=== PATIENT | male | born 1965 | race Two or more races ===

== ENCOUNTER 2021-03-11 22:53 | Observation (INO) | payer SELFPAY ==
--- NOTE | 2021-03-11 23:23 | EDM.PDOC ---
ED HPI GENERAL MEDICAL PROBLEM - General Chief Complaint: Gastrointestinal Problem Stated Complaint: ALCOHOL WITHDRAWL, VOMITTING BLOOD Time Seen by Provider: 03/11/21 23:10 Source of Information: Reports: Patient History Limitations: Reports: No Limitations - History of Present Illness INITIAL COMMENTS - FREE TEXT/NARRATIVE: This is a 55-year-old male presents today for vomiting of blood. Patient that he had an argument with few days ago and for the past 7 days been drinking heavily. His last drink was yesterday. Denies any shakiness or tremors. States that he has some vomiting yesterday 2 minutes of drinking and he notices some bright red blood. Denies abdominal pain chest pain weakness fever chills or fatigue denies taking any blood thinners or other NSAIDs. - Related Data Allergies Allergy/AdvReac Type Severity Reaction Status Date / Time No Known Allergies Allergy Verified 03/11/21 23:16 Home Meds: Home Meds . [No Known Home Meds] 03/11/21 [History] ED ROS GENERAL - Review of Systems Review Of Systems: See Below Constitutional: Reports: No Symptoms HEENT: Reports: No Symptoms Respiratory: Reports: No Symptoms Cardiovascular: Reports: No Symptoms Endocrine: Reports: No Symptoms GI/Abdominal: Reports: Hematemesis : Reports: No Symptoms Musculoskeletal: Reports: No Symptoms Skin: Reports: No Symptoms Neurological: Reports: No Symptoms Psychiatric: Reports: No Symptoms Hematologic/Lymphatic: Reports: No Symptoms Immunologic: Reports: No Symptoms ED EXAM, GI/ABD - Physical Exam Exam: See Below Exam Limited By: No Limitations General Appearance: Alert, WD/WN, No Apparent Distress Eyes: Bilateral: EOMI Head: Atraumatic, Normocephalic Neck: Normal Inspection, Supple, Non-Tender Respiratory/Chest: No Respiratory Distress, Lungs Clear, Normal Breath Sounds, No Accessory Muscle Use Cardiovascular: Normal Peripheral Pulses, Regular Rate, Rhythm GI/Abdominal Exam: Normal Bowel Sounds, Soft, Non-Tender Rectal (Males) Exam: Normal Exam, Normal Rectal Tone (Has brown stool), Heme + Stool Back Exam: Normal Inspection, Full Range of Motion Extremities: Normal Inspection, Normal Range of Motion Neurological: Alert, Oriented, Normal Cognition, Normal Gait Course - Vital Signs Last Recorded V/S: Last Vital Signs Temp 96.5 F L 03/11/21 23:10 Pulse 124 H 09/22/21 23:10 Resp 18 03/11/21 23:10 BP 119/86 03/11/21 23:10 Pulse Ox 96 03/11/21 23:10 - Orders/Labs/Meds Orders: Active Orders 24 hr Category Date Time Status Patient Status [ADT] Routine ADT 03/12/21 02:40 Ordered CORONAVIRUS COVID-19 ELSA [MOLEC] Stat Lab 03/12/21 02:31 Ordered REFLEX LACTIC ACID YES OR NO [CHEM] Routine Lab 03/12/21 00:03 Received Sodium Chloride 0.9% [Normal Saline] 1,000 ml Med 03/12/21 02:31 Ordered IV .Bolus Medication Orders Sodium Chloride (Normal Saline) 1,000 mls @ 1,000 mls/hr IV .Bolus ONE Stop: 03/12/21 03:30 Labs: Laboratory Tests 03/11/21 03/11/21 03/11/21 Range/Units 23:05 23:05 23:05 WBC 15.60 H (4.0-11.0) K/uL RBC 4.40 L (4.50-5.90) M/uL Hgb 14.0 (13.0-17.0) g/dL Hct 39.8 (38.0-50.0) % MCV 90.5 (80.0-98.0) fL MCH 31.8 (27.0-32.0) pg MCHC 35.2 (31.0-37.0) g/dL RDW Std Deviation 39.9 (28.0-62.0) fl RDW Coeff of James 12 (11.0-15.0) % Plt Count 249 (150-400) K/uL MPV 12.00 (7.40-12.00) fL Neut % (Auto) 70.5 (48.0-80.0) % Lymph % (Auto) 19.9 (16.0-40.0) % [place] % (Auto) 8.9 (0.0-15.0) % Eos % (Auto) 0.1 (0.0-7.0) % Baso % (Auto) 0.6 (0.0-1.5) % Neut # (Auto) 11.0 H (1.4-5.7) K/uL Lymph # (Auto) 3.1 H (0.6-2.4) K/uL [place] # (Auto) 1.4 H (0.0-0.8) K/uL Eos # (Auto) 0.0 (0.0-0.7) K/uL Baso # (Auto) 0.1 (0.0-0.1) K/uL Nucleated RBC % 0.0 /100WBC Nucleated RBCs # 0 K/uL INR 1.07 APTT 23.3 (18.6-31.3) SEC Sodium 132 L (136-148) mmol/L Potassium 3.9 (3.5-5.1) mmol/L Chloride 95 L (98-107) mmol/L Carbon Dioxide 24.5 (21.0-32.0) mmol/L BUN 41 H (7.0-18.0) mg/dL Creatinine 1.5 H (0.8-1.3) mg/dL Est Cr Clr Drug Dosing TNP Estimated GFR (MDRD) 48.6 ml/min Glucose 190 H (74-106) mg/dL Lactic Acid (0.4-2.0) mmol/L Calcium 8.3 L (8.5-10.1) mg/dL Phosphorus 3.5 (2.6-4.7) mg/dL Magnesium 2.0 (1.8-2.4) mg/dL Total Bilirubin 1.5 H (0.2-1.0) mg/dL AST 46 H (15-37) IU/L ALT 49 (14-63) IU/L Alkaline Phosphatase 74 (46-116) U/L Total Protein 7.1 (6.4-8.2) g/dL Albumin 3.3 L (3.4-5.0) g/dL Globulin 3.8 (2.6-4.0) g/dL Albumin/Globulin Ratio 0.9 (0.9-1.6) Lipase 98 (73-393) U/L Urine Opiates Screen (NEGATIVE) Ur Oxycodone Screen (NEGATIVE) Urine Methadone Screen (NEGATIVE) Ur Barbiturates Screen (NEGATIVE) Ur Phencyclidine Scrn (NEGATIVE) Ur Amphetamine Screen (NEGATIVE) U Methamphetamines Scrn (NEGATIVE) U Benzodiazepines Scrn (NEGATIVE) U Cocaine Metab Screen (NEGATIVE) U Marijuana (THC) Screen (NEGATIVE) Ethyl Alcohol < 3.0 mg/dL Blood Type Antibody Screen 03/11/21 03/11/21 03/12/21 Range/Units 23:30 23:30 00:45 WBC (4.0-11.0) K/uL RBC (4.50-5.90) M/uL Hgb (13.0-17.0) g/dL Hct (38.0-50.0) % MCV (80.0-98.0) fL MCH (27.0-32.0) pg MCHC (31.0-37.0) g/dL RDW Std Deviation (28.0-62.0) fl RDW Coeff of James (11.0-15.0) % Plt Count (150-400) K/uL MPV (7.40-12.00) fL Neut % (Auto) (48.0-80.0) % Lymph % (Auto) (16.0-40.0) % [place] % (Auto) (0.0-15.0) % Eos % (Auto) (0.0-7.0) % Baso % (Auto) (0.0-1.5) % Neut # (Auto) (1.4-5.7) K/uL Lymph # (Auto) (0.6-2.4) K/uL [place] # (Auto) (0.0-0.8) K/uL Eos # (Auto) (0.0-0.7) K/uL Baso # (Auto) (0.0-0.1) K/uL Nucleated RBC % /100WBC Nucleated RBCs # K/uL INR APTT (18.6-31.3) SEC Sodium (136-148) mmol/L Potassium (3.5-5.1) mmol/L Chloride (98-107) mmol/L Carbon Dioxide (21.0-32.0) mmol/L BUN (7.0-18.0) mg/dL Creatinine (0.8-1.3) mg/dL Est Cr Clr Drug Dosing Estimated GFR (MDRD) ml/min Glucose (74-106) mg/dL Lactic Acid 3.3 H* (0.4-2.0) mmol/L Calcium (8.5-10.1) mg/dL Phosphorus (2.6-4.7) mg/dL Magnesium (1.8-2.4) mg/dL Total Bilirubin (0.2-1.0) mg/dL AST (15-37) IU/L ALT (14-63) IU/L Alkaline Phosphatase (46-116) U/L Total Protein (6.4-8.2) g/dL Albumin (3.4-5.0) g/dL Globulin (2.6-4.0) g/dL Albumin/Globulin Ratio (0.9-1.6) Lipase (73-393) U/L Urine Opiates Screen NEGATIVE (NEGATIVE) Ur Oxycodone Screen NEGATIVE (NEGATIVE) Urine Methadone Screen NEGATIVE (NEGATIVE) Ur Barbiturates Screen NEGATIVE (NEGATIVE) Ur Phencyclidine Scrn NEGATIVE (NEGATIVE) Ur Amphetamine Screen NEGATIVE (NEGATIVE) U Methamphetamines Scrn NEGATIVE (NEGATIVE) U Benzodiazepines Scrn NEGATIVE (NEGATIVE) U Cocaine Metab Screen NEGATIVE (NEGATIVE) U Marijuana (THC) Screen NEGATIVE (NEGATIVE) Ethyl Alcohol mg/dL Blood Type O POSITIVE Antibody Screen NEGATIVE 03/12/21 Range/Units 01:55 WBC 11.38 H (4.0-11.0) K/uL RBC 4.09 L (4.50-5.90) M/uL Hgb 13.0 (13.0-17.0) g/dL Hct 36.9 L (38.0-50.0) % MCV 90.2 (80.0-98.0) fL MCH 31.8 (27.0-32.0) pg MCHC 35.2 (31.0-37.0) g/dL RDW Std Deviation 36.7 (28.0-62.0) fl RDW Coeff of James 11 (11.0-15.0) % Plt Count 166 (150-400) K/uL MPV 11.40 (7.40-12.00) fL Neut % (Auto) (48.0-80.0) % Lymph % (Auto) (16.0-40.0) % [place] % (Auto) (0.0-15.0) % Eos % (Auto) (0.0-7.0) % Baso % (Auto) (0.0-1.5) % Neut # (Auto) (1.4-5.7) K/uL Lymph # (Auto) (0.6-2.4) K/uL [place] # (Auto) (0.0-0.8) K/uL Eos # (Auto) (0.0-0.7) K/uL Baso # (Auto) (0.0-0.1) K/uL Nucleated RBC % /100WBC Nucleated RBCs # K/uL INR APTT (18.6-31.3) SEC Sodium (136-148) mmol/L Potassium (3.5-5.1) mmol/L Chloride (98-107) mmol/L Carbon Dioxide (21.0-32.0) mmol/L BUN (7.0-18.0) mg/dL Creatinine (0.8-1.3) mg/dL Est Cr Clr Drug Dosing Estimated GFR (MDRD) ml/min Glucose (74-106) mg/dL Lactic Acid (0.4-2.0) mmol/L Calcium (8.5-10.1) mg/dL Phosphorus (2.6-4.7) mg/dL Magnesium (1.8-2.4) mg/dL Total Bilirubin (0.2-1.0) mg/dL AST (15-37) IU/L ALT (14-63) IU/L Alkaline Phosphatase (46-116) U/L Total Protein (6.4-8.2) g/dL Albumin (3.4-5.0) g/dL Globulin (2.6-4.0) g/dL Albumin/Globulin Ratio (0.9-1.6) Lipase (73-393) U/L Urine Opiates Screen (NEGATIVE) Ur Oxycodone Screen (NEGATIVE) Urine Methadone Screen (NEGATIVE) Ur Barbiturates Screen (NEGATIVE) Ur Phencyclidine Scrn (NEGATIVE) Ur Amphetamine Screen (NEGATIVE) U Methamphetamines Scrn (NEGATIVE) U Benzodiazepines Scrn (NEGATIVE) U Cocaine Metab Screen (NEGATIVE) U Marijuana (THC) Screen (NEGATIVE) Ethyl Alcohol mg/dL Blood Type Antibody Screen Meds: Medications Generic Name Dose Route Start Last Admin Trade Name Freq PRN Reason Stop Dose Admin Sodium Chloride 1,000 mls @ 1,000 mls/hr 03/12/21 02:31 Normal Saline IV 03/12/21 03:30 .Bolus ONE Discontinued Medications Generic Name Dose Route Start Last Admin Trade Name Freq PRN Reason Stop Dose Admin Chlordiazepoxide HCl 50 mg 03/12/21 00:22 09/23/21 00:32 Chlordiazepoxide 25 Mg Cap PO 03/12/21 00:23 50 mg ONETIME ONE Administration Al Hydroxide/Mg Hydroxide 15 0 ml 03/11/21 23:31 03/11/21 23:48 ml/ Lidocaine HCl 5 ml PO 03/11/21 23:32 20 each ONETIME ONE Administration Famotidine 20 mg 03/11/21 23:31 03/11/21 23:48 Famotidine 20 Mg Tab PO 03/11/21 23:32 20 mg ONETIME ONE Administration Ondansetron HCl 4 mg 03/11/21 23:31 03/11/21 23:48 Ondansetron 4 Mg/2 Ml Sdv IVPUSH 03/11/21 23:32 4 mg ONETIME ONE Administration - Re-Assessments/Exams Free Text/Narrative Re-Assessment/Exam: 03/12/21 02:41 Exam looks well does not have any tremors at the Librium. His hemoglobin went from 14-13. He still slightly tacky ~110. We will admit patient observation to have his hemoglobin trended also for possible early alcohol withdrawal. Departure - Departure Time of Disposition: 02:41 Disposition: Home, Self-Care 01 Condition: Good Clinical Impression: Alcohol withdrawal, Hematemesis - Discharge Information Referrals: PCP,None [Primary Care Provider] - Forms: ED Department Discharge Critical Care Note - Critical Care Note Total Time (mins): 45 Comments: Critical Care Procedure Note Authorized and Performed by: Dr. Bai Total critical care time: Approximately Due to a high probability of clinically significant, life threatening deterioration, the patient required my highest level of preparedness to intervene emergently and I personally spent this critical care time directly and personally managing the patient. This critical care time included obtaining a history; examining the patient; pulse oximetry; ordering and review of studies; arranging urgent treatment with development of a management plan; evaluation of patient's response to treatment; frequent reassessment; and, discussions with other providers. This critical care time was performed to assess and manage the high probability of imminent, life-threatening deterioration that could result in multi-organ failure. It was exclusive of separately billable procedures and treating other patients and teaching time. Sepsis Event Note (ED) - Focused Exam Vital Signs: Vital Signs Temp Pulse Resp BP Pulse Ox 03/11/21 23:10 96.5 F L 124 H 18 119/86 96 - My Orders Last 24 Hours: My Active Orders 03/12/21 00:03 REFLEX LACTIC ACID YES OR NO [CHEM] Routine 03/12/21 02:31 CORONAVIRUS COVID-19 ELSA [MOLEC] Stat Sodium Chloride 0.9% [Normal Saline] 1,000 ml IV .Bolus 03/12/21 02:40 Patient Status [ADT] Routine - Assessment/Plan Last 24 Hours: My Active Orders 03/12/21 00:03 REFLEX LACTIC ACID YES OR NO [CHEM] Routine 03/12/21 02:31 CORONAVIRUS COVID-19 ELSA [MOLEC] Stat Sodium Chloride 0.9% [Normal Saline] 1,000 ml IV .Bolus 03/12/21 02:40 Patient Status [ADT] Routine Plan: Patient is a 55-year-old male presents today for vomiting of blood. Patient has been on a drinking smith for the past 7 days he is not normally drink. Patient has no signs of alcohol withdrawal. Patient has some guaiac positive but brown stool we will obtain CBC CHEM and trend patient's hemoglobin.
[2021-03-11] MEDS ORDERED: Famotidine 20 MG Tab PO ONE (23:31)
[2021-03-11] MEDS ORDERED: Ondansetron 4 MG/2 ML SDV IVPUSH ONE (23:31)
[2021-03-11] MEDS ORDERED: Alum Hydrox/Mag Hydrox/Simeth 15 ML, Lidocaine 2% 5 ML PO ONE ×2 (23:31)
[2021-03-11 23:41] LABS: BLOOD UREA NITROGEN,BUN 41 mg/dL (7.0-18.0); CARBON DIOXIDE,CO2 24.5 mmol/L (21.0-32.0); CHLORIDE,CL 95 mmol/L (98-107); GLUCOSE RANDOM 190 mg/dL (74-106); LIPASE 98 U/L (73-393); POTASSIUM,K 3.9 mmol/L (3.5-5.1); SODIUM,NA 132 mmol/L (136-148)
--- NOTE | 2021-03-12 00:21 | CR ---
INDICATION: Hematemesis TECHNIQUE: Chest radiograph 1 view COMPARISON: None FINDINGS: The sensitivity and specificity of the exam are severely limited by the patient`s bod Mediastinum: The mediastinum is normal in appearance. The heart silhouette is normal in size and morphology. Lung: Both lungs are unremarkable in appearance with small lung volumes. No sign of pleural effusion seen. No pneumothorax is identified. Bone and Soft tissue: Unremarkable for age. IMPRESSION: 1. No acute cardiopulmonary disease is seen. Dictated by: Alex Reddy MD @ 03/12/2021 00:20:37 (Electronically Signed)
[2021-03-12] MEDS ORDERED: chlordiazePOXIDE 25 MG Cap PO ONE (00:22)
[2021-03-12] MEDS ORDERED: Sodium Chloride 0.9% 1,000 ML IV ONE (02:31)
[2021-03-12] MEDS ORDERED: LORazepam 2 MG/ML SDV IVPUSH PRN (05:17)
[2021-03-12] MEDS: Lactated Ringers 1,000 ML IV SCH ×2 (05:20→13:08)
[2021-03-12] MEDS ORDERED: Ondansetron 4 MG/2 ML SDV IVPUSH PRN (05:20)
[2021-03-12] MEDS ORDERED: Albuterol/Ipratropium 3.0-0.5 MG/3 ML Neb Soln NEB PRN (05:21)
[2021-03-12] MEDS ORDERED: Morphine 2 MG/ML SYRINGE IVPUSH PRN (05:23)
[2021-03-12 06:46] LABS: CARBON DIOXIDE,CO2 28.6 mmol/L (21.0-32.0); POTASSIUM,K 3.8 mmol/L (3.5-5.1)
--- NOTE | 2021-03-12 07:21 | PCM.HP.2 ---
H&P History of Present Illness - General Date of Service: 03/12/21 Admit Problem/Dx: Admission Diagnosis/Problem Admission Diagnosis/Problem Alcohol withdrawal syndrome - History of Present Illness Initial Comments - Free Text/Narative: 55-year-old male presented to the ED overnight due to several episodes of vom iting blood. Patient admitted to [facility] for gastritis/GI bleed and alcohol withdrawal. Patient states he has been drinking heavily for the past 5 days beginning Tuesday due to family difficulties and stress. Patient states last drink prior to this event was roughly 4 months ago. On discussion with patient's daughter she states that patient has had a long history of alcohol abuse. At admission patient denies fever, chills, nausea, vomiting, chest pain, shortness of breath, headaches, dizziness. Patient denies abdominal pain, vomiting blood. Patient states one episode of reddish-brown diarrhea. Patient states his vomiting and diarrhea had significantly improved with PPI and Zofran. Patient denies any significant past medical history, denies being prescribed any medications. Patient denies smoking, illicit drug use. Patient denies the use of NSAID medication. ER course- Patient given Librium 50 mg p.o. 1 time, 1 L normal saline bolus, GI cocktail. Chest x-ray normal. Lab work on admission white blood cell count 8.9, hemoglobin 12.3, hematocrit 35.3, platelet 165. Sodium 133, potassium 3.8, BUN 40, creatinine 1.3, AST 34, ALT 44, ALK phosphatase 64, lipase 98, vitamin D 8 .8, TSH 1.09, triglycerides 563, cholesterol 110. Urine toxicology negative, alcohol less than 3.0. Patient admitted, monitor for signs of alcohol withdrawal and GI bleeding. - Related Data Allergies/Adverse Reactions: Allergies Allergy/AdvReac Type Severity Reaction Status Date / Time No Known Allergies Allergy Verified 03/11/21 23:16 Home Medications: Home Meds Cholecalciferol (Vitamin D3) [Vitamin D3] 5,000 unit PO DAILY #30 capsule 03/12/21 [Rx] Cyanocobalamin (Vitamin B-12) [Vitamin B12] 2,500 mcg PO DAILY #30 tablet 03/12/21 [Rx] Folic Acid 0.8 mg PO DAILY 30 Days #1 capsule 03/12/21 [Rx] Omeprazole 40 mg PO DAILY #7 03/12/21 [Rx] atorvaSTATin [Lipitor] 20 mg PO BEDTIME #14 tablet 03/12/21 [Rx] Past Medical History HEENT History: Reports: None Cardiovascular History: Reports: None Respiratory History: Reports: None Gastrointestinal History: Reports: None Genitourinary History: Reports: None Musculoskeletal History: Reports: None Neurological History: Reports: None Psychiatric History: Reports: None Endocrine/Metabolic History: Reports: None 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 Hematologic History: Reports: None Immunologic History: Reports: None Oncologic (Cancer) History: Reports: None Dermatologic History: Reports: None - Infectious Disease History Infectious Disease History: Reports: None - Past Surgical History Head Surgeries/Procedures: Reports: None HEENT Surgical History: Reports: None Social & Family History - Tobacco Use Tobacco Use Status *Q: Never Tobacco User - Caffeine Use Caffeine Use: Reports: Soda - Alcohol Use Date of Last Drink: 03/10/21 Time of Last Drink: 20:00 - Recreational Drug Use Recreational Drug Use: No H&P Review of Systems - Review of Systems: Review Of Systems: See Below General: Denies: Fever, Chills, Weakness, Fatigue Pulmonary: Denies: Shortness of Breath, Wheezing, Cough Cardiovascular: Denies: Chest Pain, Palpitations, Dyspnea on Exertion, Orthopnea, Edema Gastrointestinal: Reports: Bloody Stool, Diarrhea. Denies: Abdominal Pain, Constipation, Decreased Appetite, Difficulty Swallowing (one episode), Distension, Hematemesis Psychiatric: Denies: Confusion Neurological: Denies: Confusion, Dizziness, Headache Exam - Exam Exam: See Below - Vital Signs Vital Signs: Last Vital Signs Temp 97.5 F 03/12/21 03:50 Pulse 102 H 03/12/21 03:50 Resp 18 03/12/21 03:50 BP 129/84 03/12/21 03:50 Pulse Ox 97 03/12/21 03:50 Weight: 234 lb 5.622 oz - Exam General: Alert, Oriented Lungs: Clear to Auscultation, Normal Respiratory Effort Cardiovascular: Regular Rhythm, Tachycardia GI/Abdominal Exam: Soft, Non-Tender, No Distention. No: Distended, Guarding Back Exam: No: CVA Tenderness (L), CVA Tenderness (R) Extremities: No Pedal Edema Neuro Extensive - Mental Status: Alert, Oriented x3, Normal Mood/Affect Psychiatric: Alert - Patient Data Lab Results Last 24 hrs: Laboratory Results - last 24 hr 03/11/21 03/11/21 03/11/21 Range/Units 23:05 23:05 23:05 WBC 15.60 H (4.0-11.0) K/uL RBC 4.40 L (4.50-5.90) M/uL Hgb 14.0 (13.0-17.0) g/dL Hct 39.8 (38.0-50.0) % MCV 90.5 (80.0-98.0) fL MCH 31.8 (27.0-32.0) pg MCHC 35.2 (31.0-37.0) g/dL RDW Std Deviation 39.9 (28.0-62.0) fl RDW Coeff of James 12 (11.0-15.0) % Plt Count 249 (150-400) K/uL MPV 12.00 (7.40-12.00) fL Neut % (Auto) 70.5 (48.0-80.0) % Lymph % (Auto) 19.9 (16.0-40.0) % Bucks % (Auto) 8.9 (0.0-15.0) % Eos % (Auto) 0.1 (0.0-7.0) % Baso % (Auto) 0.6 (0.0-1.5) % Neut # (Auto) 11.0 H (1.4-5.7) K/uL Lymph # (Auto) 3.1 H (0.6-2.4) K/uL Bucks # (Auto) 1.4 H (0.0-0.8) K/uL Eos # (Auto) 0.0 (0.0-0.7) K/uL Baso # (Auto) 0.1 (0.0-0.1) K/uL Nucleated RBC % 0.0 /100WBC Nucleated RBCs # 0 K/uL INR 1.07 APTT 23.3 (18.6-31.3) SEC Sodium 132 L (136-148) mmol/L Potassium 3.9 (3.5-5.1) mmol/L Chloride 95 L (98-107) mmol/L Carbon Dioxide 24.5 (21.0-32.0) mmol/L BUN 41 H (7.0-18.0) mg/dL Creatinine 1.5 H (0.8-1.3) mg/dL Est Cr Clr Drug Dosing TNP Estimated GFR (MDRD) 48.6 ml/min Glucose 190 H (74-106) mg/dL Lactic Acid (0.4-2.0) mmol/L Calcium 8.3 L (8.5-10.1) mg/dL Phosphorus 3.5 (2.6-4.7) mg/dL Magnesium 2.0 (1.8-2.4) mg/dL Total Bilirubin 1.5 H (0.2-1.0) mg/dL AST 46 H (15-37) IU/L ALT 49 (14-63) IU/L Alkaline Phosphatase 74 (46-116) U/L Total Protein 7.1 (6.4-8.2) g/dL Albumin 3.3 L (3.4-5.0) g/dL Globulin 3.8 (2.6-4.0) g/dL Albumin/Globulin Ratio 0.9 (0.9-1.6) Lipase 98 (73-393) U/L Urine Opiates Screen (NEGATIVE) Ur Oxycodone Screen (NEGATIVE) Urine Methadone Screen (NEGATIVE) Ur Barbiturates Screen (NEGATIVE) Ur Phencyclidine Scrn (NEGATIVE) Ur Amphetamine Screen (NEGATIVE) U Methamphetamines Scrn (NEGATIVE) U Benzodiazepines Scrn (NEGATIVE) U Cocaine Metab Screen (NEGATIVE) U Marijuana (THC) Screen (NEGATIVE) Ethyl Alcohol < 3.0 mg/dL SARS-CoV-2 RNA (ELSA) (NEGATIVE) Blood Type Antibody Screen 03/11/21 03/11/21 03/12/21 Range/Units 23:30 23:30 00:45 WBC (4.0-11.0) K/uL RBC (4.50-5.90) M/uL Hgb (13.0-17.0) g/dL Hct (38.0-50.0) % MCV (80.0-98.0) fL MCH (27.0-32.0) pg MCHC (31.0-37.0) g/dL RDW Std Deviation (28.0-62.0) fl RDW Coeff of James (11.0-15.0) % Plt Count (150-400) K/uL MPV (7.40-12.00) fL Neut % (Auto) (48.0-80.0) % Lymph % (Auto) (16.0-40.0) % Bucks % (Auto) (0.0-15.0) % Eos % (Auto) (0.0-7.0) % Baso % (Auto) (0.0-1.5) % Neut # (Auto) (1.4-5.7) K/uL Lymph # (Auto) (0.6-2.4) K/uL Bucks # (Auto) (0.0-0.8) K/uL Eos # (Auto) (0.0-0.7) K/uL Baso # (Auto) (0.0-0.1) K/uL Nucleated RBC % /100WBC Nucleated RBCs # K/uL INR APTT (18.6-31.3) SEC Sodium (136-148) mmol/L Potassium (3.5-5.1) mmol/L Chloride (98-107) mmol/L Carbon Dioxide (21.0-32.0) mmol/L BUN (7.0-18.0) mg/dL Creatinine (0.8-1.3) mg/dL Est Cr Clr Drug Dosing Estimated GFR (MDRD) ml/min Glucose (74-106) mg/dL Lactic Acid 3.3 H* (0.4-2.0) mmol/L Calcium (8.5-10.1) mg/dL Phosphorus (2.6-4.7) mg/dL Magnesium (1.8-2.4) mg/dL Total Bilirubin (0.2-1.0) mg/dL AST (15-37) IU/L ALT (14-63) IU/L Alkaline Phosphatase (46-116) U/L Total Protein (6.4-8.2) g/dL Albumin (3.4-5.0) g/dL Globulin (2.6-4.0) g/dL Albumin/Globulin Ratio (0.9-1.6) Lipase (73-393) U/L Urine Opiates Screen NEGATIVE (NEGATIVE) Ur Oxycodone Screen NEGATIVE (NEGATIVE) Urine Methadone Screen NEGATIVE (NEGATIVE) Ur Barbiturates Screen NEGATIVE (NEGATIVE) Ur Phencyclidine Scrn NEGATIVE (NEGATIVE) Ur Amphetamine Screen NEGATIVE (NEGATIVE) U Methamphetamines Scrn NEGATIVE (NEGATIVE) U Benzodiazepines Scrn NEGATIVE (NEGATIVE) U Cocaine Metab Screen NEGATIVE (NEGATIVE) U Marijuana (THC) Screen NEGATIVE (NEGATIVE) Ethyl Alcohol mg/dL SARS-CoV-2 RNA (ELSA) (NEGATIVE) Blood Type O POSITIVE Antibody Screen NEGATIVE 03/12/21 03/12/21 03/12/21 Range/Units 01:55 02:35 04:10 WBC 11.38 H (4.0-11.0) K/uL RBC 4.09 L (4.50-5.90) M/uL Hgb 13.0 (13.0-17.0) g/dL Hct 36.9 L (38.0-50.0) % MCV 90.2 (80.0-98.0) fL MCH 31.8 (27.0-32.0) pg MCHC 35.2 (31.0-37.0) g/dL RDW Std Deviation 36.7 (28.0-62.0) fl RDW Coeff of James 11 (11.0-15.0) % Plt Count 166 (150-400) K/uL MPV 11.40 (7.40-12.00) fL Neut % (Auto) (48.0-80.0) % Lymph % (Auto) (16.0-40.0) % Bucks % (Auto) (0.0-15.0) % Eos % (Auto) (0.0-7.0) % Baso % (Auto) (0.0-1.5) % Neut # (Auto) (1.4-5.7) K/uL Lymph # (Auto) (0.6-2.4) K/uL Bucks # (Auto) (0.0-0.8) K/uL Eos # (Auto) (0.0-0.7) K/uL Baso # (Auto) (0.0-0.1) K/uL Nucleated RBC % /100WBC Nucleated RBCs # K/uL INR APTT (18.6-31.3) SEC Sodium (136-148) mmol/L Potassium (3.5-5.1) mmol/L Chloride (98-107) mmol/L Carbon Dioxide (21.0-32.0) mmol/L BUN (7.0-18.0) mg/dL Creatinine (0.8-1.3) mg/dL Est Cr Clr Drug Dosing Estimated GFR (MDRD) ml/min Glucose (74-106) mg/dL Lactic Acid 1.6 (0.4-2.0) mmol/L Calcium (8.5-10.1) mg/dL Phosphorus (2.6-4.7) mg/dL Magnesium (1.8-2.4) mg/dL Total Bilirubin (0.2-1.0) mg/dL AST (15-37) IU/L ALT (14-63) IU/L Alkaline Phosphatase (46-116) U/L Total Protein (6.4-8.2) g/dL Albumin (3.4-5.0) g/dL Globulin (2.6-4.0) g/dL Albumin/Globulin Ratio (0.9-1.6) Lipase (73-393) U/L Urine Opiates Screen (NEGATIVE) Ur Oxycodone Screen (NEGATIVE) Urine Methadone Screen (NEGATIVE) Ur Barbiturates Screen (NEGATIVE) Ur Phencyclidine Scrn (NEGATIVE) Ur Amphetamine Screen (NEGATIVE) U Methamphetamines Scrn (NEGATIVE) U Benzodiazepines Scrn (NEGATIVE) U Cocaine Metab Screen (NEGATIVE) U Marijuana (THC) Screen (NEGATIVE) Ethyl Alcohol mg/dL SARS-CoV-2 RNA (ELSA) NEGATIVE (NEGATIVE) Blood Type Antibody Screen 03/12/21 03/12/21 Range/Units 06:00 06:00 WBC 8.94 (4.0-11.0) K/uL RBC 3.92 L (4.50-5.90) M/uL Hgb 12.3 L (13.0-17.0) g/dL Hct 35.3 L (38.0-50.0) % MCV 90.1 (80.0-98.0) fL MCH 31.4 (27.0-32.0) pg MCHC 34.8 (31.0-37.0) g/dL RDW Std Deviation 39.8 (28.0-62.0) fl RDW Coeff of James 12 (11.0-15.0) % Plt Count 165 (150-400) K/uL MPV 12.00 (7.40-12.00) fL Neut % (Auto) 62.7 (48.0-80.0) % Lymph % (Auto) 24.4 (16.0-40.0) % Bucks % (Auto) 12.5 (0.0-15.0) % Eos % (Auto) 0.1 (0.0-7.0) % Baso % (Auto) 0.3 (0.0-1.5) % Neut # (Auto) 5.6 (1.4-5.7) K/uL Lymph # (Auto) 2.2 (0.6-2.4) K/uL Bucks # (Auto) 1.1 H (0.0-0.8) K/uL Eos # (Auto) 0.0 (0.0-0.7) K/uL Baso # (Auto) 0.0 (0.0-0.1) K/uL Nucleated RBC % 0.0 /100WBC Nucleated RBCs # 0 K/uL INR APTT (18.6-31.3) SEC Sodium 133 L (136-148) mmol/L Potassium 3.8 (3.5-5.1) mmol/L Chloride 97 L (98-107) mmol/L Carbon Dioxide 28.6 (21.0-32.0) mmol/L BUN 40 H (7.0-18.0) mg/dL Creatinine 1.3 (0.8-1.3) mg/dL Est Cr Clr Drug Dosing 70.47 Estimated GFR (MDRD) 57.3 ml/min Glucose 128 H (74-106) mg/dL Lactic Acid (0.4-2.0) mmol/L Calcium 7.9 L (8.5-10.1) mg/dL Phosphorus 3.9 (2.6-4.7) mg/dL Magnesium 2.4 (1.8-2.4) mg/dL Total Bilirubin 1.2 H (0.2-1.0) mg/dL AST 34 (15-37) IU/L ALT 44 (14-63) IU/L Alkaline Phosphatase 64 (46-116) U/L Total Protein 6.4 (6.4-8.2) g/dL Albumin 3.0 L (3.4-5.0) g/dL Globulin 3.4 (2.6-4.0) g/dL Albumin/Globulin Ratio 0.9 (0.9-1.6) Lipase (73-393) U/L Urine Opiates Screen (NEGATIVE) Ur Oxycodone Screen (NEGATIVE) Urine Methadone Screen (NEGATIVE) Ur Barbiturates Screen (NEGATIVE) Ur Phencyclidine Scrn (NEGATIVE) Ur Amphetamine Screen (NEGATIVE) U Methamphetamines Scrn (NEGATIVE) U Benzodiazepines Scrn (NEGATIVE) U Cocaine Metab Screen (NEGATIVE) U Marijuana (THC) Screen (NEGATIVE) Ethyl Alcohol mg/dL SARS-CoV-2 RNA (ELSA) (NEGATIVE) Blood Type Antibody Screen Result Diagrams: 03/12/21 15:15 03/12/21 06:00 Sepsis Event Note - Evaluation Sepsis Screening Result: No Definite Risk - Focused Exam Vital Signs: Vital Signs Temp Pulse Resp BP Pulse Ox 03/12/21 03:50 97.5 F 102 H 18 129/84 97 03/12/21 02:40 110 H 18 145/94 H 97 03/12/21 00:45 114 H 18 156/96 H 98 03/11/21 23:10 96.5 F L 124 H 18 119/86 96 - Problem List (1) Hypertriglyceridemia SNOMED Code(s): 870147461 ICD Code: E78.1 - PURE HYPERGLYCERIDEMIA Status: Acute Current Visit: Yes (2) Low vitamin D level SNOMED Code(s): 745534991 ICD Code: R79.89 - OTHER SPECIFIED ABNORMAL FINDINGS OF BLOOD CHEMISTRY Status: Acute Current Visit: Yes (3) Hematochezia SNOMED Code(s): 566460750 ICD Code: K92.1 - MELENA Status: Acute Current Visit: Yes (4) Alcohol withdrawal SNOMED Code(s): 550944158 ICD Code: F10.239 - ALCOHOL DEPENDENCE WITH WITHDRAWAL, UNSPECIFIED Status: Acute Current Visit: Yes (5) Hematemesis SNOMED Code(s): 2074649 ICD Code: K92.0 - HEMATEMESIS Status: Acute Current Visit: Yes Problem List Initiated/Reviewed/Updated: Yes Orders Last 24hrs: Active Orders 24 hr Category Date Time Status Patient Status [ADT] Routine ADT 03/12/21 02:40 Active Antiembolic Devices [RC] PER UNIT ROUTINE Care 03/12/21 05:16 Active CIWAA Assessment [RC] Q4H Care 03/12/21 05:16 Active RT Aerosol Therapy [RC] ASDIRECTED Care 03/12/21 05:21 Active Telemetry Monitoring [Cardiac Monitoring] [RC] . Care 03/12/21 03:50 Active DIRECTED Vital Signs [RC] Q4H Care 03/12/21 08:00 Active NPO [Nothing Per Oral Diet] [DIET] Diet 03/12/21 Breakfast Active Albuterol/Ipratropium [DuoNeb 3.0-0.5 MG/3 ML] Med 03/12/21 05:21 Active 3 ml NEB Q4HRRT PRN Folic Acid Med 03/12/21 09:00 Active 1 mg IV DAILY LORazepam [Ativan] Med 03/12/21 05:17 Active See Protocol IVPUSH Q4H PRN Lactated Ringers [Ringers, Lactated] 1,000 ml Med 03/12/21 05:15 Active IV ASDIRECTED Morphine Med 03/12/21 05:23 Active 1 mg IVPUSH Q4H PRN Ondansetron [Zofran] Med 03/12/21 05:20 Active 4 mg IVPUSH Q4H PRN Pantoprazole [ProTONIX IV] 40 mg Med 03/12/21 09:00 Active Sodium Chloride 0.9% [Normal Saline] 10 ml IV BID Thiamine [Vitamin B-1] 100 mg Med 03/12/21 09:00 Active Sodium Chloride 0.9% [Normal Saline] 100 ml IV DAILY chlordiazePOXIDE [Librium] Med 03/12/21 09:00 Active 5 mg PO Q8H PRN SCD [Sequential Compression Device] [OM.PC] Routine Oth 03/12/21 05:16 Ordered Medication Orders Albuterol/Ipratropium (Albuterol/Ipratropium 3.0-0.5 Mg/3 Ml Neb Soln) 3 ml NEB Q4HRRT PRN PRN Reason: Shortness of Breath Chlordiazepoxide HCl (Chlordiazepoxide 5 Mg Cap) 5 mg PO Q8H PRN PRN Reason: Withdrawal Symptoms Folic Acid (Folic Acid 50 Mg/10 Ml Mdv) 1 mg IV DAILY SAADIA Lactated Ringer's (Ringers, Lactated) 1,000 mls @ 125 mls/hr IV ASDIRECTED SAADIA Last Admin: 03/12/21 05:20 Dose: 125 mls/hr Documented by: DIANA Pantoprazole Sodium 40 mg/ (Sodium Chloride) 10 mls @ 300 mls/hr IV BID SAADIA Thiamine HCl 100 mg/ Sodium (Chloride) 101 mls @ 202 mls/hr IV DAILY SAADIA Lorazepam (Lorazepam 2 Mg/Ml Sdv) 0 mg IVPUSH Q4H PRN; Protocol PRN Reason: Withdrawal Symptoms Morphine Sulfate (Morphine 2 Mg/Ml Syringe) 1 mg IVPUSH Q4H PRN PRN Reason: Pain Ondansetron HCl (Ondansetron 4 Mg/2 Ml Sdv) 4 mg IVPUSH Q4H PRN PRN Reason: Nausea/Vomiting Assessment/Plan Comment:: Alcohol withdrawalLibrium 5 mg every 8 as prn CIWA protocol, IV fluids LR, thiamine, folic acid. Gastritis/GI bleed-Protonix every 24, n.p.o., advance diet as tolerated, Zofran, morphine. General surgery consulted with recommendation made to have patient follow-up within the next 7 days post discharge to discuss possible EGD and/or colonoscopy. Recheck H&H in the afternoon. Patient states he has no past medical history, has not been prescribed medications. Patient does not see a doctor. Full lab work done to include hemoglobin A1c, lipid panel, TSH, vitamin D, B12, folic acid. Patient had mild T wave abnormalities on telemetry this morning, EKG ordered with impression of slight T wave inversion. Troponin ordered with negative result. Patient denies chest pain, shortness of breath. Patient to be monitored.
[2021-03-12] MEDS: Pantoprazole 40 MG in Sodium Chloride 0.9% 10 ML IV SCH ×2 (08:14→20:32)
[2021-03-12] MEDS: Folic Acid 50 MG/10 ML MDV IV SCH (08:23)
[2021-03-12] MEDS ORDERED: Thiamine 100 MG in Sodium Chloride 0.9% 100 ML IV SCH (09:00)
[2021-03-12] MEDS: Thiamine 200 MG/2 ML MDV IVPUSH SCH (09:23)
[2021-03-12 10:11] LABS: HEMOGLOBIN A1C 5.6 %
[2021-03-12] MEDS: Cholecalciferol (Vitamin D3) 25 MCG Tab PO SCH (13:09)
[2021-03-12] MEDS ORDERED: Cyanocobalamin (Vitamin B12) 500 MCG Tab PO SCH (20:00)
[2021-03-12] MEDS: Cyanocobalamin (Vitamin B12) 500 MCG Tab PO SCH (20:33)
[2021-03-12] MEDS ORDERED: atorvaSTATin 20 MG Tab PO SCH (21:00)
[2021-03-13 06:31] LABS: CARBON DIOXIDE,CO2 30.4 mmol/L (21.0-32.0); POTASSIUM,K 3.2 mmol/L (3.5-5.1)
[2021-03-13] MEDS ORDERED: Potassium Chloride 20 MEQ Tab.ER PO ONE ×2 (07:10→09:30)
--- NOTE | 2021-03-13 09:04 | PCM.DCSUM1 ---
Discharge Summary - Hospital Course Free Text/Narrative:: 55-year-old male presented to the ED on 03-12-21 due to several episodes of vomiting blood. Patient admitted to [facility] for gastritis/GI bleed and alcohol withdrawal. Patient states he has been drinking heavily for the past 5 days beginning Tuesday due to family difficulties and stress. Patient states last drink prior to this event was roughly 4 months ago. On discussion with patient's daughter she states that patient has had a long history of alcohol abuse. At admission patient denies fever, chills, nausea, vomiting, chest pain, shortness of breath, headaches, dizziness. Patient denies abdominal pain, vomiting blood. Patient states one episode of reddish-brown diarrhea. Patient states his vomiting and diarrhea had significantly improved with PPI and Zofran. Patient denies any significant past medical history, denies being prescribed any medications. Patient denies smoking, illicit drug use. Patient denies the use of NSAID medication. ER course- Patient given Librium 50 mg p.o. 1 time, 1 L normal saline bolus, GI cocktail. Chest x-ray normal. Lab work on admission white blood cell count 8.9, hemoglobin 12.3, hematocrit 35.3, platelet 165. Sodium 133, potassium 3.8, BUN 40, creatinine 1.3, AST 34, ALT 44, ALK phosphatase 64, lipase 98, vitamin D 8.8, TSH 1.09, triglycerides 563, cholesterol 110. Urine toxicology negative, alcohol less than 3.0. Patient admitted overnight and monitored for signs of alcohol withdrawal and GI bleeding. During hospital course patient was noted to have patient had mild T wave abnormality noted on telemetry which was followed up with EKG which noted mild T wave inversion. Troponins were negative, electrolytes within normal limits. Patient denied chest pain, shortness of breath. Patient discharged home on 03-13-21 in stable condition. Patient discharged home on 5000 IU vitamin D daily, 2500 mcg B12, 0.8mg milligrams folic acid, 20 mg atorvastatin, 40 mg omeprazole. Patient to follow-up with general surgery within 7 days post discharge to discuss GI bleeding, patient to follow-up with primary care physician to discuss medications. Patient advised to report to ED if experiencing severe nausea, abdominal pain, vomiting blood, bloody diarrhea, fever, chills. Patient advised abstain from all alcohol consumption. Patient understands and agrees. - Discharge Data Discharge Date: 03/13/21 Discharge Disposition: Home, Self-Care 01 Condition: Stable - Referral to Home Health Primary Care Physician: PCP None - Discharge Diagnosis/Problem(s) (1) Hypertriglyceridemia SNOMED Code(s): 828471368 ICD Code: E78.1 - PURE HYPERGLYCERIDEMIA Status: Acute (2) Low vitamin D level SNOMED Code(s): 375641932 ICD Code: R79.89 - OTHER SPECIFIED ABNORMAL FINDINGS OF BLOOD CHEMISTRY Status: Acute (3) Hematochezia SNOMED Code(s): 528273442 ICD Code: K92.1 - MELENA Status: Acute (4) Alcohol withdrawal SNOMED Code(s): 057292652 ICD Code: F10.239 - ALCOHOL DEPENDENCE WITH WITHDRAWAL, UNSPECIFIED Status: Acute (5) Hematemesis SNOMED Code(s): 1883498 ICD Code: K92.0 - HEMATEMESIS Status: Acute - Patient Instructions Diet: Usual Diet as Tolerated Activity: As Tolerated Showering/Bathing: May Shower Notify Provider of: Fever, Increased Pain, Nausea and/or Vomiting Other/Special Instructions: Low vitamin D level of 8.8. Patient to take 5000 IU vitamin D daily. Low vitamin B12 level 236patient to take 2500 mcg B12 daily. Low folic acid level 10.4patient to take 0.8 mg folic acid daily. Elevated triglycerides level 563patient to take 20 mg atorvastatin daily. Patient to review this medication with primary care physician after discharge. Patient prescribed omeprazole 40 mg daily for stomach irritation/bleeding. Patient to discuss this medication with primary care after discharge. Patient to follow-up with general surgery within 7 days after discharge to discuss GI bleeding. Patient to report side effects from medications to primary care physician such as muscle pain, muscle aches, joint pain, joint aches. Patient to report to the ED if experiencing severe nausea, abdominal pain, vomiting blood, bloody diarrhea. - Discharge Plan Prescriptions/Med Rec: Folic Acid 0.8 mg PO DAILY 30 Days #1 capsule atorvaSTATin [Lipitor] 20 mg PO BEDTIME #14 tablet Omeprazole 40 mg PO DAILY #7 capsule. Cyanocobalamin (Vitamin B-12) [Vitamin B12] 2,500 mcg PO DAILY #30 tablet Cholecalciferol (Vitamin D3) [Vitamin D3] 5,000 unit PO DAILY #30 capsule Home Medications: Home Meds Cholecalciferol (Vitamin D3) [Vitamin D3] 5,000 unit PO DAILY #30 capsule 03/12/21 [Rx] Cyanocobalamin (Vitamin B-12) [Vitamin B12] 2,500 mcg PO DAILY #30 tablet 02/19 09/07 [Rx] Folic Acid 0.8 mg PO DAILY 30 Days #1 capsule 03/12/21 [Rx] Omeprazole 40 mg PO DAILY #7 capsule. 03/12/21 [Rx] atorvaSTATin [Lipitor] 20 mg PO BEDTIME #14 tablet 03/12/21 [Rx] Patient Handouts: Vitamin B12 Deficiency, Yepi-hc-Bpry, Atorvastatin tablets, Vitamin D Oral Tablets and Capsules, Folic Acid, Vitamin B9 tablets, Alcohol Withdrawal Syndrome, Qdop-uc-Tltd, Omeprazole tablets (OTC) Forms: ED Department Discharge Referrals: Alon Kaplan MD [Physician] - 03/19/21 11:00 am Casper Andrade MD [Physician] - 03/17/21 10:00 am - Discharge Summary/Plan Comment DC Time >30 min.: Yes Total # of Minutes for Discharge Time: 40 - General Info Date of Service: 03/13/21 - Review of Systems General: Denies: Fever, Chills Pulmonary: Denies: Shortness of Breath, Pleuritic Chest Pain, Cough, Wheezing Cardiovascular: Denies: Chest Pain, Dyspnea on Exertion, Orthopnea, Edema Gastrointestinal: Denies: Abdominal Pain, Decreased Appetite, Diarrhea, Nausea, Vomiting Neurological: Denies: Confusion, Dizziness, Headache Psychiatric: Denies: Confusion - Patient Data Vitals - Most Recent: Last Vital Signs Temp 98.7 F 03/13/21 08:54 Pulse 86 03/13/21 08:54 Resp 16 03/13/21 08:54 BP 120/68 03/13/21 08:54 Pulse Ox 97 03/13/21 08:54 Weight - Most Recent: 234 lb 5.622 oz I&O - Last 24 hours: Intake & Output 03/12/21 03/13/21 03/13/21 22:59 06:59 14:59 Intake Total 2316 550 Output Total 0 Balance 2316 550 Lab Results - Last 24 hrs: Laboratory Results - last 24 hr 03/12/21 03/12/21 03/12/21 Range/Units 06:00 06:00 06:00 WBC (4.0-11.0) K/uL RBC (4.50-5.90) M/uL Hgb (13.0-17.0) g/dL Hct (38.0-50.0) % MCV (80.0-98.0) fL MCH (27.0-32.0) pg MCHC (31.0-37.0) g/dL RDW Std Deviation (28.0-62.0) fl RDW Coeff of James (11.0-15.0) % Plt Count (150-400) K/uL MPV (7.40-12.00) fL Neut % (Auto) (48.0-80.0) % Lymph % (Auto) (16.0-40.0) % Bandera % (Auto) (0.0-15.0) % Eos % (Auto) (0.0-7.0) % Baso % (Auto) (0.0-1.5) % Neut # (Auto) (1.4-5.7) K/uL Lymph # (Auto) (0.6-2.4) K/uL Bandera # (Auto) (0.0-0.8) K/uL Eos # (Auto) (0.0-0.7) K/uL Baso # (Auto) (0.0-0.1) K/uL Sodium (136-148) mmol/L Potassium (3.5-5.1) mmol/L Chloride (98-107) mmol/L Carbon Dioxide (21.0-32.0) mmol/L BUN (7.0-18.0) mg/dL Creatinine (0.8-1.3) mg/dL Est Cr Clr Drug Dosing mL/min Estimated GFR (MDRD) ml/min Glucose (74-106) mg/dL Hemoglobin A1c 5.6 (4.5 - 6.2) % Calcium (8.5-10.1) mg/dL Total Bilirubin (0.2-1.0) mg/dL AST (15-37) IU/L ALT (14-63) IU/L Alkaline Phosphatase (46-116) U/L Troponin I < 0.050 (0.000-0.056) ng/mL Total Protein (6.4-8.2) g/dL Albumin (3.4-5.0) g/dL Globulin (2.6-4.0) g/dL Albumin/Globulin Ratio (0.9-1.6) Triglycerides 563 H (0-200) mg/dL Cholesterol 110 (50-200) mg/dL HDL Cholesterol 27 L (40-60) mg/dL Cholesterol/HDL Ratio 4.1 (3.3-6.0) Vitamin B12 (193-986) pg/mL Vitamin D 25-Hydroxy (30.0-100.0) ng/mL Folate (8.60-58.90) ng/mL TSH, Ultra Sensitive 1.09 (0.36-3.74) uIU/mL 03/12/21 03/12/21 03/12/21 Range/Units 06:00 06:00 15:15 WBC (4.0-11.0) K/uL RBC (4.50-5.90) M/uL Hgb 11.4 L (13.0-17.0) g/dL Hct 32.8 L (38.0-50.0) % MCV (80.0-98.0) fL MCH (27.0-32.0) pg MCHC (31.0-37.0) g/dL RDW Std Deviation (28.0-62.0) fl RDW Coeff of James (11.0-15.0) % Plt Count (150-400) K/uL MPV (7.40-12.00) fL Neut % (Auto) (48.0-80.0) % Lymph % (Auto) (16.0-40.0) % Bandera % (Auto) (0.0-15.0) % Eos % (Auto) (0.0-7.0) % Baso % (Auto) (0.0-1.5) % Neut # (Auto) (1.4-5.7) K/uL Lymph # (Auto) (0.6-2.4) K/uL Bandera # (Auto) (0.0-0.8) K/uL Eos # (Auto) (0.0-0.7) K/uL Baso # (Auto) (0.0-0.1) K/uL Sodium (136-148) mmol/L Potassium (3.5-5.1) mmol/L Chloride (98-107) mmol/L Carbon Dioxide (21.0-32.0) mmol/L BUN (7.0-18.0) mg/dL Creatinine (0.8-1.3) mg/dL Est Cr Clr Drug Dosing mL/min Estimated GFR (MDRD) ml/min Glucose (74-106) mg/dL Hemoglobin A1c (4.5 - 6.2) % Calcium (8.5-10.1) mg/dL Total Bilirubin (0.2-1.0) mg/dL AST (15-37) IU/L ALT (14-63) IU/L Alkaline Phosphatase (46-116) U/L Troponin I (0.000-0.056) ng/mL Total Protein (6.4-8.2) g/dL Albumin (3.4-5.0) g/dL Globulin (2.6-4.0) g/dL Albumin/Globulin Ratio (0.9-1.6) Triglycerides (0-200) mg/dL Cholesterol (50-200) mg/dL HDL Cholesterol (40-60) mg/dL Cholesterol/HDL Ratio (3.3-6.0) Vitamin B12 236 (193-986) pg/mL Vitamin D 25-Hydroxy 8.8 L (30.0-100.0) ng/mL Folate 10.40 (8.60-58.90) ng/mL TSH, Ultra Sensitive (0.36-3.74) uIU/mL 03/13/21 03/13/21 Range/Units 05:46 05:46 WBC 8.09 (4.0-11.0) K/uL RBC 3.52 L (4.50-5.90) M/uL Hgb 11.3 L (13.0-17.0) g/dL Hct 32.5 L (38.0-50.0) % MCV 92.3 (80.0-98.0) fL MCH 32.1 H (27.0-32.0) pg MCHC 34.8 (31.0-37.0) g/dL RDW Std Deviation 38.8 (28.0-62.0) fl RDW Coeff of James 12 (11.0-15.0) % Plt Count 154 (150-400) K/uL MPV 12.30 H (7.40-12.00) fL Neut % (Auto) 62.8 (48.0-80.0) % Lymph % (Auto) 27.9 (16.0-40.0) % Bandera % (Auto) 8.2 (0.0-15.0) % Eos % (Auto) 0.9 (0.0-7.0) % Baso % (Auto) 0.2 (0.0-1.5) % Neut # (Auto) 5.1 (1.4-5.7) K/uL Lymph # (Auto) 2.3 (0.6-2.4) K/uL Bandera # (Auto) 0.7 (0.0-0.8) K/uL Eos # (Auto) 0.1 (0.0-0.7) K/uL Baso # (Auto) 0.0 (0.0-0.1) K/uL Sodium 136 (136-148) mmol/L Potassium 3.2 L (3.5-5.1) mmol/L Chloride 99 (98-107) mmol/L Carbon Dioxide 30.4 (21.0-32.0) mmol/L BUN 21 H (7.0-18.0) mg/dL Creatinine 1.3 (0.8-1.3) mg/dL Est Cr Clr Drug Dosing 70.47 mL/min Estimated GFR (MDRD) 57.3 ml/min Glucose 109 H (74-106) mg/dL Hemoglobin A1c (4.5 - 6.2) % Calcium 8.1 L (8.5-10.1) mg/dL Total Bilirubin 0.7 (0.2-1.0) mg/dL AST 36 (15-37) IU/L ALT 45 (14-63) IU/L Alkaline Phosphatase 62 (46-116) U/L Troponin I (0.000-0.056) ng/mL Total Protein 6.5 (6.4-8.2) g/dL Albumin 3.1 L (3.4-5.0) g/dL Globulin 3.4 (2.6-4.0) g/dL Albumin/Globulin Ratio 0.9 (0.9-1.6) Triglycerides (0-200) mg/dL Cholesterol (50-200) mg/dL HDL Cholesterol (40-60) mg/dL Cholesterol/HDL Ratio (3.3-6.0) Vitamin B12 (193-986) pg/mL Vitamin D 25-Hydroxy (30.0-100.0) ng/mL Folate (8.60-58.90) ng/mL TSH, Ultra Sensitive (0.36-3.74) uIU/mL Med Orders - Current: Current Medications Albuterol/Ipratropium (Albuterol/Ipratropium 3.0-0.5 Mg/3 Ml Neb Soln) 3 ml NEB Q4HRRT PRN PRN Reason: Shortness of Breath Atorvastatin Calcium (Atorvastatin 20 Mg Tab) 20 mg PO BEDTIME [facility] Last Admin: 03/12/21 20:33 Dose: 20 mg Documented by: Cholecalciferol (Cholecalciferol (Vitamin D3) 25 Mcg Tab) 125 mcg PO DAILY [facility] Last Admin: 03/12/21 13:09 Dose: 125 mcg Documented by: Cyanocobalamin (Cyanocobalamin (Vitamin B12) 500 Mcg Tab) 2,000 mcg PO DAILY [facility] Last Admin: 03/12/21 20:33 Dose: 2,000 mcg Documented by: Folic Acid (Folic Acid 50 Mg/10 Ml Mdv) 1 mg IV DAILY [facility] Last Admin: 03/12/21 08:23 Dose: 1 mg Documented by: Pantoprazole Sodium 40 mg/ (Sodium Chloride) 10 mls @ 300 mls/hr IV BID [facility] Last Admin: 03/12/21 20:32 Dose: 300 mls/hr Documented by: Lorazepam (Lorazepam 2 Mg/Ml Sdv) 0 mg IVPUSH Q4H PRN; Protocol PRN Reason: Withdrawal Symptoms Morphine Sulfate (Morphine 2 Mg/Ml Syringe) 1 mg IVPUSH Q4H PRN PRN Reason: Pain Ondansetron HCl (Ondansetron 4 Mg/2 Ml Sdv) 4 mg IVPUSH Q4H PRN PRN Reason: Nausea/Vomiting Thiamine HCl (Thiamine 200 Mg/2 Ml Mdv) 100 mg IVPUSH DAILY [facility] Last Admin: 03/12/21 09:23 Dose: 100 mg Documented by: Discontinued Medications Chlordiazepoxide HCl (Chlordiazepoxide 25 Mg Cap) 50 mg PO ONETIME ONE Stop: 03/12/21 00:23 Last Admin: 03/12/21 00:32 Dose: 50 mg Documented by: Chlordiazepoxide HCl (Chlordiazepoxide 5 Mg Cap) 5 mg PO Q8H PRN PRN Reason: Withdrawal Symptoms Al Hydroxide/Mg Hydroxide 15 (ml/ Lidocaine HCl 5 ml) 0 ml PO ONETIME ONE Stop: 03/11/21 23:32 Last Admin: 03/11/21 23:48 Dose: 20 each Documented by: Cyanocobalamin (Cyanocobalamin (Vitamin B12) 500 Mcg Tab) 2,000 mcg PO DAILY [facility] Famotidine (Famotidine 20 Mg Tab) 20 mg PO ONETIME ONE Stop: 03/11/21 23:32 Last Admin: 03/11/21 23:48 Dose: 20 mg Documented by: Sodium Chloride (Normal Saline) 1,000 mls @ 1,000 mls/hr IV .Bolus ONE Stop: 03/12/21 03:30 Last Admin: 03/12/21 02:50 Dose: 1,000 mls/hr Documented by: Lactated Ringer's (Ringers, Lactated) 1,000 mls @ 125 mls/hr IV ASDIRECTED [facility] Last Admin: 03/12/21 13:08 Dose: 125 mls/hr Documented by: Ondansetron HCl (Ondansetron 4 Mg/2 Ml Sdv) 4 mg IVPUSH ONETIME ONE Stop: 03/11/21 23:32 Last Admin: 03/11/21 23:48 Dose: 4 mg Documented by: Potassium Chloride (Potassium Chloride 20 Meq Tab.Er) 40 meq PO ONETIME ONE Stop: 03/13/21 07:11
[2021-03-13] MEDS: Pantoprazole 40 MG in Sodium Chloride 0.9% 10 ML IV SCH (09:39)
[2021-03-13] MEDS: Thiamine 200 MG/2 ML MDV IVPUSH SCH (09:40)
[2021-03-13] MEDS: Folic Acid 50 MG/10 ML MDV IV SCH (09:41)
[2021-03-13] MEDS: Cholecalciferol (Vitamin D3) 25 MCG Tab PO SCH (09:42)
[2021-03-13] MEDS: Cyanocobalamin (Vitamin B12) 500 MCG Tab PO SCH (09:42)
== END 2021-03-13 11:40 | disposition home or self-care (01) ==
LOC: MW.ED 22:53 → MW.MS 03-12 02:40
PROVIDERS: ADMIT Student in an Organized Health Care Education/Training Program; ATTEND Student in an Organized Health Care Education/Training Program
DX: K92.0 Hematemesis (principal); E78.1 Pure hyperglyceridemia; F10.239 Alcohol dependence with withdrawal, unspecified; Z79.899 Other long term (current) drug therapy; Z20.822 Contact with and (suspected) exposure to COVID-19
CPT/HCPCS: 36415; 71045; 71045-26; 80053; 80061; 80305-QW; 80307; 82306; 82607; 82746; 83036; 83605; 83690; 83735; 84100; 84443; 84484; 85014; 85018; 85025; 85027; 85610; 85730; 86850; 86900; 86901; 93005; 96361; 96374; 96375; 96376; 99291; A9270-GY; C9113; G0378; J2405; J3411; J7030; J7120; U0002

== ENCOUNTER 2021-03-30 21:49 | Emergency (ER) | payer SELFPAY ==
[2021-03-30 23:57] LABS: BLOOD UREA NITROGEN,BUN 13 mg/dL (7.0-18.0); CARBON DIOXIDE,CO2 22.6 mmol/L (21.0-32.0); CHLORIDE,CL 96 mmol/L (98-107); GLUCOSE RANDOM 125 mg/dL (74-106); POTASSIUM,K 3.8 mmol/L (3.5-5.1); SODIUM,NA 131 mmol/L (136-148)
--- NOTE | 2021-03-31 00:05 | EDM.PDOC ---
ED HPI GENERAL MEDICAL PROBLEM - General Chief Complaint: Gastrointestinal Problem Stated Complaint: CHRONIC VOMITING Time Seen by Provider: 03/31/21 00:00 Source of Information: Reports: Patient, Family History Limitations: Reports: Language Barrier - History of Present Illness INITIAL COMMENTS - FREE TEXT/NARRATIVE: Patient is a 55-year-old male presents today for weakness and fatigue. Patient states he was tested positive for Covid last week and was feeling fine yesterday was standing up and felt slightly dizzy and weak. He denies any nausea vomiting any shortness of breath abdominal pain diarrhea or other symptoms. He was seen before for possible blood in his stool but denies any dark stools or vomiting. Patient on exam has no other complaints. - Related Data Allergies Allergy/AdvReac Type Severity Reaction Status Date / Time No Known Allergies Allergy Verified 03/30/21 22:56 Home Meds: Home Meds Cholecalciferol (Vitamin D3) [Vitamin D3] 5,000 unit PO DAILY #30 capsule 03/12/21 [Rx] Cyanocobalamin (Vitamin B-12) [Vitamin B12] 2,500 mcg PO DAILY #30 tablet 03/12/21 [Rx] Folic Acid 0.8 mg PO DAILY 30 Days #1 capsule 03/12/21 [Rx] Omeprazole 40 mg PO DAILY #7 capsule. 03/12/21 [Rx] atorvaSTATin [Lipitor] 20 mg PO BEDTIME #14 tablet 03/12/21 [Rx] Zinc 1 dose PO DAILY 03/30/21 [History] Past Medical History HEENT History: Reports: None Cardiovascular History: Reports: None Respiratory History: Reports: None Gastrointestinal History: Reports: None Genitourinary History: Reports: None Musculoskeletal History: Reports: None Neurological History: Reports: None Psychiatric History: Reports: None Endocrine/Metabolic History: Reports: None Insulin Pump Model and Wall Cleaner: None Hematologic History: Reports: None Immunologic History: Reports: None Oncologic (Cancer) History: Reports: None Dermatologic History: Reports: None - Infectious Disease History Infectious Disease History: Reports: None - Past Surgical History Head Surgeries/Procedures: Reports: None HEENT Surgical History: Reports: None Social & Family History - Tobacco Use Tobacco Use Status *Q: Never Tobacco User - Caffeine Use Caffeine Use: Reports: Soda - Recreational Drug Use Recreational Drug Use: No ED ROS GENERAL - Review of Systems Review Of Systems: See Below Constitutional: Reports: Malaise HEENT: Reports: No Symptoms Respiratory: Reports: No Symptoms Cardiovascular: Reports: No Symptoms Endocrine: Reports: No Symptoms GI/Abdominal: Reports: No Symptoms : Reports: No Symptoms Musculoskeletal: Reports: No Symptoms Skin: Reports: No Symptoms Neurological: Reports: No Symptoms Psychiatric: Reports: No Symptoms Hematologic/Lymphatic: Reports: No Symptoms Immunologic: Reports: No Symptoms ED EXAM, GENERAL - Physical Exam Exam: See Below Exam Limited By: No Limitations General Appearance: Alert, WD/WN, No Apparent Distress Throat/Mouth: Normal Inspection Head: Atraumatic, Normocephalic Respiratory/Chest: No Respiratory Distress, Lungs Clear, Normal Breath Sounds Cardiovascular: Normal Peripheral Pulses, Regular Rate, Rhythm GI/Abdominal: Normal Bowel Sounds, Soft, Non-Tender Extremities: Normal Inspection Neurological: Alert, Oriented, Normal Cognition, Normal Gait #1 Interpretation EKG Date: 03/30/21 Time: 23:12 Rhythm: NSR Rate (Beats/Min): 88 ST-T: Normal Course - Vital Signs Last Recorded V/S: Last Vital Signs Temp 98.7 F 03/30/21 22:58 Pulse 85 03/30/21 22:58 Resp 18 03/30/21 22:58 BP 160/75 H 03/30/21 22:58 Pulse Ox 95 03/30/21 22:58 - Orders/Labs/Meds Labs: Laboratory Tests 03/30/21 03/30/21 03/30/21 Range/Units 23:20 23:20 23:20 WBC 6.88 (4.0-11.0) K/uL RBC 3.65 L (4.50-5.90) M/uL Hgb 10.8 L (13.0-17.0) g/dL Hct 32.7 L (38.0-50.0) % MCV 89.6 (80.0-98.0) fL MCH 29.6 (27.0-32.0) pg MCHC 33.0 (31.0-37.0) g/dL RDW Std Deviation 43.6 (28.0-62.0) fl RDW Coeff of James 14 (11.0-15.0) % Plt Count 268 (150-400) K/uL MPV 10.50 (7.40-12.00) fL Neut % (Auto) 79.3 (48.0-80.0) % Lymph % (Auto) 12.6 L (16.0-40.0) % Elliott % (Auto) 7.4 (0.0-15.0) % Eos % (Auto) 0.7 (0.0-7.0) % Baso % (Auto) 0.0 (0.0-1.5) % Neut # (Auto) 5.5 (1.4-5.7) K/uL Lymph # (Auto) 0.9 (0.6-2.4) K/uL Elliott # (Auto) 0.5 (0.0-0.8) K/uL Eos # (Auto) 0.1 (0.0-0.7) K/uL Baso # (Auto) 0.0 (0.0-0.1) K/uL INR 1.04 Sodium 131 L (136-148) mmol/L Potassium 3.8 (3.5-5.1) mmol/L Chloride 96 L (98-107) mmol/L Carbon Dioxide 22.6 (21.0-32.0) mmol/L BUN 13 (7.0-18.0) mg/dL Creatinine 1.1 (0.8-1.3) mg/dL Est Cr Clr Drug Dosing 78.35 mL/min Estimated GFR (MDRD) > 60.0 ml/min Glucose 125 H (74-106) mg/dL Calcium 7.9 L (8.5-10.1) mg/dL Total Bilirubin 0.8 (0.2-1.0) mg/dL AST 59 H (15-37) IU/L ALT 61 (14-63) IU/L Alkaline Phosphatase 75 (46-116) U/L Total Protein 7.0 (6.4-8.2) g/dL Albumin 2.7 L (3.4-5.0) g/dL Globulin 4.3 H (2.6-4.0) g/dL Albumin/Globulin Ratio 0.6 L (0.9-1.6) Meds: Medications Discontinued Medications Generic Name Dose Route Start Last Admin Trade Name Freq PRN Reason Stop Dose Admin Sodium Chloride 1,000 mls @ 1,000 mls/hr 03/31/21 00:17 03/31/21 00:36 Normal Saline IV 03/31/21 01:16 1,000 mls/hr .Bolus ONE Administration - Re-Assessments/Exams Free Text/Narrative Re-Assessment/Exam: 03/31/21 01:50 Patient x-ray shows a possible pneumonia but he is Covid positive no white count no fever no cough we will continue to treat his Covid and give patient strict return precautions. Departure - Departure Time of Disposition: 01:51 Disposition: Home, Self-Care 01 Condition: Good Clinical Impression: Viral illness - Discharge Information *PRESCRIPTION DRUG MONITORING PROGRAM REVIEWED*: Not Applicable *COPY OF PRESCRIPTION DRUG MONITORING REPORT IN PATIENT RACHELL: Not Applicable Instructions: Viral Illness, Adult Referrals: PCP,None [Primary Care Provider] - Forms: ED Department Discharge Additional Instructions: The following information is given to patients seen in the emergency department who are being discharged to home. This information is to outline your options for follow-up care. We provide all patients seen in our emergency department with a follow-up referral. The need for follow-up, as well as the timing and circumstances, are variable depending upon the specifics of your emergency department visit. If you don't have a primary care physician on staff, we will provide you with a referral. We always advise you to contact your personal physician following an emergency department visit to inform them of the circumstance of the visit and for follow-up with them and/or the need for any referrals to a consulting specialist. The emergency department will also refer you to a specialist when appropriate. This referral assures that you have the opportunity for follow-up care with a specialist. All of these measure are taken in an effort to provide you with optimal care, which includes your follow-up. Under all circumstances we always encourage you to contact your private physician who remains a resource for coordinating your care. When calling for follow-up care, please make the office aware that this follow-up is from your recent emergency room visit. If for any reason you are refused follow-up, please contact the [facility] Emergency Department at and asked to speak to the emergency department charge nurse. Please follow up with your primary care physician. If you do not have a primary care physician, see below: [facility] [address] [place] [address] [id number] [facility] [address] [place] [address] Hoy fuiste visto por debilidad y fatiga. Hicimos anlisis de laboratorio y radiografas. Myers hemoglobina est en un nivel estable desde que le dieron de nelson. Myers radiografa muestra neel neumona bilateral que probablemente se deba a myers Covid. Si tiene ms tos o fiebre, regrese al servicio de urgencias, ya que es posible que necesite antibiticos; de lo contrario, contine con myers mdico de atencin primaria. You were seen today for weakness and fatigue. We did labs and x-rays. Your hemoglobin is at a stable level from when you were discharged. Your x-ray shows a bilateral pneumonia which is likely due to your Covid. If you have any increased coughing or fever please return to ED as you may need antibiotics otherwise continue to follow with your primary care physician. Sepsis Event Note (ED) - Evaluation Sepsis Screening Result: No Definite Risk - Focused Exam Vital Signs: Vital Signs Temp Pulse Resp BP Pulse Ox 03/30/21 22:58 98.7 F 85 18 160/75 H 95 - Assessment/Plan Plan: She is a 55-year-old male with test positive Covid last week presents today for increasing fatigue and weakness. Patient satting 95% on room air looks well has no nausea vomiting or diarrhea. Patient hemoglobin is stable from previous visits. Patient likely having symptoms of Covid will give IV fluids x-ray and reassess.
[2021-03-31] MEDS ORDERED: Sodium Chloride 0.9% 1,000 ML IV ONE (00:17)
--- NOTE | 2021-03-31 01:37 | CR ---
INDICATION: Cough. COVID. COMPARISON: 03/11/2021 chest radiograph. FINDINGS/IMPRESSION: New ground-glass infiltrates involving the lateral periphery of the mid and lower lung zones bilaterally, most likely representing pneumonia. No pleural effusion identified. Normal heart size. Unremarkable bony structures. Dictated by Jagdish Storey MD @ 03/31/2021 1:36:05 AM Dictated by: Jagdish Storey MD @ 03/31/2021 01:36:42 (Electronically Signed)
== END 2021-03-31 01:59 | disposition home or self-care (01) ==
LOC: MW.ED 21:49
DX: B34.9 Viral infection, unspecified (principal); Z79.899 Other long term (current) drug therapy
CPT/HCPCS: 36415; 71045; 80053; 85025; 85610; 93005; 99284; J7030

== ENCOUNTER 2021-03-31 12:19 | Emergency (ER) | payer SELFPAY ==
--- NOTE | 2021-03-31 14:31 | EDM.PDOC ---
ED HPI GENERAL MEDICAL PROBLEM - General Chief Complaint: Respiratory Problem Stated Complaint: COUGHING WEAKNESS DIZZY Time Seen by Provider: 03/31/21 14:00 Source of Information: Reports: Patient History Limitations: Reports: No Limitations - History of Present Illness INITIAL COMMENTS - FREE TEXT/NARRATIVE: HISTORY AND PHYSICAL: History of present illness: Patient is a 55-year-old male, with a history of hypertension and obesity, primarily speaking male, who presents emergency room today with concern of known Covid infection x6 days with symptoms for 7 days. Patient does speak some Dutch but it is broken up and his daughter is with him at bedside. I did offer to use Martti translation, however, patient does clearly state in Dutch that his daughter will clear up any discrepancies. Patient does present patient states that he tested positive through a drive-through fast Covid testing. Patient states that since then, he has had a cough, generalized body aches, intermittent fevers, and some shortness of breath. Patient states he did get seen in the emergency room yesterday and had a full work-up and was told that he had COVID-19 viral pneumonia. Patient states that he is confused as he typically thinks of pneumonia receiving antibiotics but states that he did not get any prescriptions. Patient states he does not have any change in his sympt oms from yesterday's evaluation but was just confused that he did not receive any medications. Patient denies chest pain. Denies headache, neck stiff ness, change in vision, syncope, or near syncope. Denies nausea, vomiting, abdominal pain, diarrhea, constipation, or dysuria. Has not noted any blood in urine or stool. Patient has been eating and drinking appropriately. Review of systems: As per history of present illness and below otherwise all systems reviewed and negative. Past medical history: As per history of present illness and as reviewed below otherwise noncontributory. Surgical history: As per history of present illness and as reviewed below otherwise noncontributory. Social history: See social history for further information Family history: As per history of present illness and as reviewed below otherwise noncontributory. Physical exam: General: Patient is alert, oriented, and in no acute distress. Patient sitting comfortably on exam table. Vitals stable and reviewed by me. HEENT: Atraumatic, normocephalic, pupils equal and reactive bilaterally, negative for conjunctival pallor or scleral icterus, mucous membranes moist, neck supple, nontender, trachea midline. No drooling or trismus noted. No meningeal signs. No hot potato voice noted. Lungs: Clear to auscultation, breath sounds equal bilaterally, chest nontender. Patient speaking clearly without breathlessness, no wheezing or stridor, no accessory muscle use or respiratory distress. Heart: S1S2, regular rate and rhythm without overt murmur Abdomen: Soft, nondistended, nontender. Negative for masses or hepatosplenomegaly. Negative for costovertebral tenderness. Pelvis: Stable nontender. Genitourinary: Deferred. Rectal: Deferred. Skin: Intact, warm, dry. No lesions or rashes noted. Extremities: Atraumatic, negative for cords or calf pain. Neurovascular unremarkable. Neuro: Awake, alert, oriented. Cranial nerves II through XII unremarkable. Cerebellum unremarkable. Motor and sensory unremarkable throughout. Exam nonfocal. Notes: Patient is a 55-year-old male, with a known diagnosis of COVID-19 x6 days with symptoms for 7, who presents emergency room today with concern that he did not receive antibiotics yesterday after his emergency room visit for Covid pneumonia. I did discuss with patient that antibiotics are not warranted for a viral infection and at this time, appears as if his pneumonia is related to his COVID-19 viral infection. I did discuss the monoclonal antibody infusion, as patient does have a BMI of 31.6, hypertension, and moderate COVID pneumonia on imaging performed yesterday and is considered a moderate risk for COVID-19 viral infection. He is agreeable to this. However, patient did have initial COVID-19 testing done at a drive-through testing facility and requires a PCR test in order to receive the infusion. Will obtain this PCR swab today and get patient set up for the monoclonal antibody infusion. All risks versus benefits of the infusion discussed with patient and expresses understanding. Signs and symptoms that were prompt return to the ED thoroughly discussed with patient. Discussed importance of follow-up with a primary care provider foll owing COVID-19 quarantine restrictions. Voices understanding and is agreeable to plan of care. Denies any further questions or concerns at this time. Diagnostics: COVID-19 viral infection Therapeutics: None Prescription: Patient was filled out for monoclonal antibody infusion Impression: COVID-19 viral infection Plan: 1. Your vital signs and oxygen saturation are well enough that you were able to monitor your symptoms at home. Continue to monitor for trouble breathing, new confusion or inability to arouse, bluish lips or face or any of the other symptoms we discussed -if this occurs please return to the emergency room.Continue to monitor your health at home for worsening symptoms so that you can be taken care of and treated quickly if needed. 2. Please self quarantine until 10 days have passed since your symptoms began AND you are fever free (<100.4 degrees fahrenheit) for 24 hours without the use of fever-reducing medications AND symptoms are improving. You should restrict activities outside of your home, except for getting medical care. Do not go to work, school, or public areas. Avoid using public transportation, ride-sharing, or taxis. Inform any persons that you have been in contact with since you started becoming symptomatic that you have tested positive; they should be made aware and take the appropriate steps as needed. 3. You may alternate Tylenol and ibuprofen as needed for pain and fever management. 4. The replaced by [facility] will be calling you and following up with you. The [place] COVID 19 Hotline phone number , They are open Tuesday - Tuesday 7am - 7pm. Follow up with your primary care provider for re-evaluation and re-testing after quarantine and discuss when you should be seen. 5. For more specific guidelines regarding isolation/quarantine please visit this website. https://www.health.[place].gov/sites/www/files/documents/Files/LUISANA/coronavirus/Factsh eet_for_People_With_COVID-19.pdf Definitive disposition and diagnosis as appropriate pending reevaluation and review of above. - Related Data Allergies Allergy/AdvReac Type Severity Reaction Status Date / Time No Known Allergies Allergy Verified 03/31/21 13:37 Home Meds: Home Meds Cholecalciferol (Vitamin D3) [Vitamin D3] 5,000 unit PO DAILY #30 capsule 03/12/21 [Rx] Cyanocobalamin (Vitamin B-12) [Vitamin B12] 2,500 mcg PO DAILY #30 tablet 03/12/21 [Rx] Folic Acid 0.8 mg PO DAILY 30 Days #1 capsule 03/12/21 [Rx] Omeprazole 40 mg PO DAILY #7 capsule 03/12/21 [Rx] atorvaSTATin [Lipitor] 20 mg PO BEDTIME #14 tablet 03/12/21 [Rx] Zinc 1 dose PO DAILY 03/30/21 [History] Past Medical History HEENT History: Reports: None Cardiovascular History: Reports: None Respiratory History: Reports: None Gastrointestinal History: Reports: None Genitourinary History: Reports: None Musculoskeletal History: Reports: None Neurological History: Reports: None Psychiatric History: Reports: None Endocrine/Metabolic History: Reports: None Insulin Pump Model 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 Hematologic History: Reports: None Immunologic History: Reports: None Oncologic (Cancer) History: Reports: None Dermatologic History: Reports: None - Infectious Disease History Infectious Disease History: Reports: None - Past Surgical History Head Surgeries/Procedures: Reports: None HEENT Surgical History: Reports: None Social & Family History - Family History Family Medical History: No Pertinent Family History - Tobacco Use Tobacco Use Status *Q: Never Tobacco User - Caffeine Use Caffeine Use: Reports: Coffee, Soda - Recreational Drug Use Recreational Drug Use: No ED ROS GENERAL - Review of Systems Review Of Systems: Comprehensive ROS is negative, except as noted in HPI. ED EXAM, GENERAL - Physical Exam Exam: See Below (See dictation) Course - Vital Signs Last Recorded V/S: Last Vital Signs Temp 99.8 F 03/31/21 13:37 Pulse 72 03/31/21 15:18 Resp 17 03/31/21 15:18 BP 136/94 H 03/31/21 15:18 Pulse Ox 96 03/31/21 15:18 - Orders/Labs/Meds Labs: Laboratory Tests 03/31/21 Range/Units 14:30 SARS-CoV-2 RNA (ELSA) POSITIVE H (NEGATIVE) Departure - Departure Time of Disposition: 14:30 Disposition: Home, Self-Care 01 Clinical Impression: COVID-19 virus infection - Discharge Information Instructions: COVID-19 Vaccine Information, COVID-19: How to Protect Yourself and Others - CDC, COVID-19: Quarantine vs. Isolation - CDC (06/05/2020), COVID- 19: What to Do If You Are Sick- [facility] (09/03/2020) Referrals: PCP,None [Primary Care Provider] - Forms: ED Department Discharge Additional Instructions: The following information is given to patients seen in the emergency department who are being discharged to home. This information is to outline your options for follow-up care. We provide all patients seen in our emergency department with a follow-up referral. The need for follow-up, as well as the timing and circumstances, are variable depending upon the specifics of your emergency department visit. If you don't have a primary care physician on staff, we will provide you with a referral. We always advise you to contact your personal physician following an emergency department visit to inform them of the circumstance of the visit and f or follow-up with them and/or the need for any referrals to a consulting specialist. The emergency department will also refer you to a specialist when appropriate. This referral assures that you have the opportunity for follow-up care with a specialist. All of these measure are taken in an effort to provide you with optimal care, which includes your follow-up. Under all circumstances we always encourage you to contact your private physician who remains a resource for coordinating your care. When calling for follow-up care, please make the office aware that this follow-up is from your recent emergency room visit. If for any reason you are refused follow-up, please contact the [facility] Emergency Department at and asked to speak to the emergency department charge nurse. [facility] [address] [place] [id number] [place] [address] 1. Your vital signs and oxygen saturation are well enough that you were able to monitor your symptoms at home. Continue to monitor for trouble breathing, new confusion or inability to arouse, bluish lips or face or any of the other symptoms we discussed -if this occurs please return to the emergency room.Continue to monitor your health at home for worsening symptoms so that you can be taken care of and treated quickly if needed. 2. Please self quarantine until 10 days have passed since your symptoms began AND you are fever free (<100.4 degrees fahrenheit) for 24 hours without the use of fever-reducing medications AND symptoms are improving. You should restrict activities outside of your home, except for getting medical care. Do not go to work, school, or public areas. Avoid using public transportation, ride-sharing, or taxis. Inform any persons that you have been in contact with since you started becoming symptomatic that you have tested positive; they should be made aware and take the appropriate steps as needed. 3. You may alternate Tylenol and ibuprofen as needed for pain and fever management. 4. The [facility] will be calling you and following up with you. The [place] COVID 19 Hotline phone number , They are open Tuesday - Tuesday 7am - 7pm. Follow up with your primary care provider for re-evaluation and re-testing after quarantine and discuss when you should be seen. 5. For more specific guidelines regarding isolation/quarantine please visit this website. https://www.health.[place].gov/sites/www/files/documents/Files/LUISANA/coronavirus/Factsh eet_for_People_With_COVID-19.pdf Sepsis Event Note (ED) - Focused Exam Vital Signs: Vital Signs Temp Pulse Resp BP Pulse Ox 03/31/21 15:18 72 17 136/94 H 96 03/31/21 13:37 99.8 F 79 18 146/79 H 95 03/31/21 12:45 94 L
== END 2021-03-31 15:20 | disposition home or self-care (01) ==
LOC: MW.ED 12:19
DX: U07.1 COVID-19 (principal)
CPT/HCPCS: 99284; U0002

== ENCOUNTER 2021-06-01 10:11 | Inpatient (IN) | payer OTHER ==
[2021-06-01] MEDS ORDERED: Piperacillin/Tazobactam 3.375 GM in Sodium Chloride 0.9% 50 ML IV ONE (10:31)
--- NOTE | 2021-06-01 10:40 | EDM.PDOC ---
ED HPI GENERAL MEDICAL PROBLEM - General Chief Complaint: Respiratory Problem Stated Complaint: UNK Time Seen by Provider: 06/01/21 10:16 - History of Present Illness INITIAL COMMENTS - FREE TEXT/NARRATIVE: 56-year-old male brought in from the primary care office for hydropneumothorax. The patient had Covid several months ago. He has had still shortness of breath on and off since that time. Patient started about 3 weeks ago with some right- sided chest discomfort. He states he has no fever. He saw some cough but nonproductive phlegm. No high fevers. No exacerbating relieving factors. Pain is moderate and sharp. Patient had a chest x-ray during follow-up at his primary and the hydropneumothorax was found. - Related Data Allergies Allergy/AdvReac Type Severity Reaction Status Date / Time No Known Allergies Allergy Verified 06/01/21 10:13 Home Meds: Home Meds Cholecalciferol (Vitamin D3) [Vitamin D3] 5,000 unit PO DAILY #30 capsule 03/12/21 [Rx] Past Medical History HEENT History: Reports: None Cardiovascular History: Reports: None Respiratory History: Reports: None Gastrointestinal History: Reports: None Genitourinary History: Reports: None Musculoskeletal History: Reports: None Neurological History: Reports: None Psychiatric History: Reports: None Endocrine/Metabolic History: Reports: None Insulin Pump Model and Client Development Manager: None Hematologic History: Reports: None Immunologic History: Reports: None Oncologic (Cancer) History: Reports: None Dermatologic History: Reports: None - Infectious Disease History Infectious Disease History: Reports: None - Past Surgical History Head Surgeries/Procedures: Reports: None HEENT Surgical History: Reports: None Social & Family History - Family History Family Medical History: No Pertinent Family History - Tobacco Use Tobacco Use Status *Q: Never Tobacco User Second Hand Smoke Exposure: No - Caffeine Use Caffeine Use: Reports: None - Recreational Drug Use Recreational Drug Use: No ED ROS GENERAL - Review of Systems Review Of Systems: Comprehensive ROS is negative, except as noted in HPI. ED EXAM, GENERAL - Physical Exam Exam: See Below Free Text/Narrative:: CONSTITUTIONAL: well appearing in no acute distress SKIN: Warm, dry, and intact without rash HENT: Normocephalic, atraumatic, PULMONARY: Decreased breath sounds in the right with some intermittent rales. No marked tachypnea. CARDIOVASCULAR: regular rate, No murmur, rubs, or gallops. no marked jugular venous distention GASTROINTESTINAL: soft, nondistended, nontender NEUROLOGIC: normal speech, II-XII intact. light touch/5/5 power equal and symmetric in upper and lower extremities without deficit MUSCULOSKELETAL: no gross deformities, atraumatic PSYCHIATRIC: normal mood and affect #1 Interpretation Time: 10:14 EKG Interpretation Comments: EKG: NSR, nonspecific ST/T changes, Rate -91 Course - Vital Signs Text/Narrative:: Differential diagnosis: PE, pneumonia, pneumothorax, empyema, other Patient presents to the emergency department complaining of shortness of breath. Patient has evidence of a hydropneumothorax on the right. Patient has recently gotten over Covid. Chest tube was placed by surgery with I am informed, 600 cc of fluid. Patient is been given empiric antibiotics and cultured. Admission for chest tube management, suction, antibiotics and continued treatment and management. If there is no improvement with time there could be consideration of transfer at that time for thoracic surgery involvement as deemed necessary by surgery` Last Recorded V/S: Last Vital Signs Temp 36.4 C 06/01/21 12: Pulse 104 H 06/01/21 14:27 Resp 22 H 06/01/21 14:27 BP 156/96 H 06/01/21 14:27 Pulse Ox 95 06/01/21 14:27 - Orders/Labs/Meds Orders: Active Orders 24 hr Category Date Time Status Chest 1V Frontal [CR] Stat Exams 06/01/21 13:54 Taken CULTURE BLOOD [BC] Stat Lab 06/01/21 10:30 Received CULTURE BLOOD [BC] Stat Lab 06/01/21 10:55 Received CULTURE, ANAEROBE & AEROBE [MREF] Stat Lab 06/01/21 14:20 Ordered GRAM STAIN [RM] Stat Lab 06/01/21 14:02 Ordered Blood Culture x2 Reflex Set [OM.PC] Stat Oth 06/01/21 10:31 Ordered Labs: Laboratory Tests 06/01/21 06/01/21 06/01/21 Range/Units 10:30 10:30 10:30 APTT 26.7 (18.6-31.3) SEC Lactic Acid 0.9 (0.4-2.0) mmol/L Troponin I < 0.050 (0.000-0.056) ng/mL SARS-CoV-2 RNA (ELSA) (NEGATIVE) 06/01/21 Range/Units 11:07 APTT (18.6-31.3) SEC Lactic Acid (0.4-2.0) mmol/L Troponin I (0.000-0.056) ng/mL SARS-CoV-2 RNA (ELSA) POSITIVE H (NEGATIVE) Meds: Medications Discontinued Medications Generic Name Dose Route Start Last Admin Trade Name Joaquin PRN Reason Stop Dose Admin Hydromorphone HCl 0.5 mg 06/01/21 13:55 06/01/21 14:07 Hydromorphone 1 Mg/Ml Syringe IVPUSH 06/01/21 13:56 0.5 mg ONETIME ONE Administration Piperacillin Sod/Tazobactam 50 mls @ 100 mls/hr 06/01/21 10:31 06/01/21 11:00 Sod 3.375 gm/ Sodium Chloride IV 06/01/21 11:00 100 mls/hr ONETIME ONE Administration Iopamidol 75 ml 06/01/21 11:37 06/01/21 11:37 Iopamidol 755 Mg/Ml 500 Ml Multipack Bottle IVPUSH 06/01/21 11:38 75 ml ONETIME STA Administration Lidocaine HCl 20 ml 06/01/21 13:22 06/01/21 14:05 Lidocaine 1% 10 Ml Mdv INJECT 06/01/21 13:23 Not Given ONETIME ONE Lidocaine HCl Confirm 06/01/21 13:26 06/01/21 14:05 Lidocaine 1% 5 Ml Sdv Administered 06/01/21 13:27 Not Given Dose 20 ml .ROUTE .STK-MED ONE Lidocaine HCl 20 ml 06/01/21 14:01 06/01/21 14:05 Lidocaine 1% 10 Ml Mdv INJECT 06/01/21 14:02 Not Given ONETIME ONE Lidocaine HCl 20 ml 06/01/21 14:03 06/01/21 14:04 Lidocaine 1% 5 Ml Sdv INJECT 06/01/21 14:04 15 ml ONETIME ONE Administration Morphine Sulfate 6 mg 06/01/21 13:55 06/01/21 14:05 Morphine 2 Mg/Ml Syringe IVPUSH 06/01/21 13:56 Not Given NOW STA Departure - Departure Time of Disposition: 14:45 Disposition: Admitted As Inpatient 66 Condition: Fair Clinical Impression: Hydropneumothorax - Discharge Information Forms: ED Department Discharge Sepsis Event Note (ED) - Evaluation Sepsis Screening Result: No Definite Risk - Focused Exam Vital Signs: Vital Signs Temp Pulse Resp BP Pulse Ox 06/01/21 14:27 104 H 22 H 156/96 H 95 06/01/21 14:14 105 H 142/104 H 95 06/01/21 13:45 95 173/99 H 93 L 06/01/21 13:14 96 140/86 94 L 06/01/21 12:21 36.4 C 97 22 H 138/88 96 06/01/21 11:14 93 149/92 H 96 06/01/21 10:13 36.6 C 90 16 170/91 H 96 - My Orders Last 24 Hours: My Active Orders 06/01/21 10:30 CULTURE BLOOD [BC] Stat 06/01/21 10:31 Blood Culture x2 Reflex Set [OM.PC] Stat 06/01/21 10:55 CULTURE BLOOD [BC] Stat 06/01/21 14:02 GRAM STAIN [RM] Stat 06/01/21 14:20 CULTURE, ANAEROBE & AEROBE [MREF] Stat - Assessment/Plan Last 24 Hours: My Active Orders 06/01/21 10:30 CULTURE BLOOD [BC] Stat 06/01/21 10:31 Blood Culture x2 Reflex Set [OM.PC] Stat 06/01/21 10:55 CULTURE BLOOD [BC] Stat 06/01/21 14:02 GRAM STAIN [RM] Stat 06/01/21 14:20 CULTURE, ANAEROBE & AEROBE [MREF] Stat
[2021-06-01] MEDS ORDERED: Iopamidol 755 MG/ML 500 ML Multipack Bottle IVPUSH STA (11:37)
--- NOTE | 2021-06-01 12:12 | CT ---
INDICATION: Hydropneumothorax. TECHNIQUE: CT chest without contrast. COMPARISON: Chest x-ray June 01, 2021. FINDINGS: Lungs and pleura: There is a large complex right-sided hydropneumothorax. Loculated pockets of air are present within a relatively large effusion component in the right lung base. The right lung is compressed at least 50 percent. Small patchy ground-glass infiltrates are throughout the periphery of the left lung. Heart and vasculature: Heart size is normal. Thoracic aorta and pulmonary artery are normal in caliber. Lymph nodes/mediastinum: No mediastinal, hilar, or axillary adenopathy. Mild [id number] mediastinal shift. Chest wall: No masses. Upper abdomen: No significant findings. Bones: Unremarkable for age. IMPRESSION: 1. Large complex right-sided hydropneumothorax compressing the lung by at least 50 percent and causing mild mediastinal shift suggesting some degree of tension. This warrants a chest tube placement. 2. Ground-glass infiltrates in the left lung in a pattern suspicious for [id number] COVID pneumonitis. 3. No other acute or significant findings. Please note that all CT scans at this facility use dose modulation, iterative reconstruction, and/or weight-based dosing when appropriate to reduce radiation dose to as low as reasonably achievable. Dictated by Rufino Stevens MD @ 06/01/2021 12:11:30 PM (Electronically Signed)
[2021-06-01] MEDS ORDERED: Lidocaine 1% 10 ML MDV INJECT ONE ×2 (13:22→14:01)
[2021-06-01] MEDS ORDERED: HYDROmorphone 1 MG/ML Syringe IVPUSH ONE (13:55)
[2021-06-01] MEDS ORDERED: Morphine 2 MG/ML SYRINGE IVPUSH STA (13:55)
--- NOTE | 2021-06-01 14:51 | PCM.CONS ---
H&P History of Present Illness - General Date of Service: 06/01/21 Admit Problem/Dx: Hydropneumothorax Source of Information: Patient History Limitations: Reports: No Limitations - History of Present Illness Initial Comments - Free Text/Narative: Patient is a 56 year old male who presents with shortness of breath and chest discomfort. He has been having the pain for about 3 weeks. He was diagnosed with COVID at the beginning of March. He presented to the ER from the walk in clinic. Chest CT showed a pneumothorax with serous possibly loculated fluid in the base of the lung. He had a slightly elevated WBC at 14K. His vitals were stable with a O2 sat of 94% on RA. - Related Data Allergies/Adverse Reactions: Allergies Allergy/AdvReac Type Severity Reaction Status Date / Time No Known Allergies Allergy Verified 06/01/21 10:13 Home Medications: Home Meds Cholecalciferol (Vitamin D3) [Vitamin D3] 5,000 unit PO DAILY #30 capsule 03/12/21 [Rx] Past Medical History HEENT History: Reports: None Cardiovascular History: Reports: None Respiratory History: Reports: None Gastrointestinal History: Reports: None Genitourinary History: Reports: None Musculoskeletal History: Reports: None Neurological History: Reports: None Psychiatric History: Reports: None Endocrine/Metabolic History: Reports: None Insulin Pump Model and Deicer Element Winder Machine: None Hematologic History: Reports: None Immunologic History: Reports: None Oncologic (Cancer) History: Reports: None Dermatologic History: Reports: None - Infectious Disease History Infectious Disease History: Reports: None - Past Surgical History Head Surgeries/Procedures: Reports: None HEENT Surgical History: Reports: None Social & Family History - Family History Family Medical History: No Pertinent Family History - Tobacco Use Tobacco Use Status *Q: Never Tobacco User Second Hand Smoke Exposure: No - Caffeine Use Caffeine Use: Reports: None - Recreational Drug Use Recreational Drug Use: No H&P Review of Systems - Review of Systems: Review Of Systems: Comprehensive ROS is negative, except as noted in HPI. Exam - Exam Exam: See Below - Vital Signs Vital Signs: Last Vital Signs Temp 36.4 C 06/01/21 12:21 Pulse 104 H 06/01/21 14:27 Resp 22 H 06/01/21 14:27 BP 156/96 H 06/01/21 14:27 Pulse Ox 95 06/01/21 14:27 Weight: 63.503 kg - Exam General: Alert, Oriented, Cooperative HEENT: Conjunctiva Clear, Mucosa Moist & [place], Posterior Pharynx Clear Neck: Supple, Trachea Midline Lungs: Decreased Breath Sounds (Right chest ) Cardiovascular: Tachycardia (mild) GI/Abdominal Exam: Soft, Non-Tender, No Distention, No Mass Extremities: Normal Inspection - Patient Data Lab Results Last 24 hrs: Laboratory Results - last 24 hr 06/01/21 06/01/21 06/01/21 Range/Units 10:30 10:30 10:30 APTT 26.7 (18.6-31.3) SEC Lactic Acid 0.9 (0.4-2.0) mmol/L Troponin I < 0.050 (0.000-0.056) ng/mL SARS-CoV-2 RNA (ELSA) (NEGATIVE) 06/01/21 Range/Units 11:07 APTT (18.6-31.3) SEC Lactic Acid (0.4-2.0) mmol/L Troponin I (0.000-0.056) ng/mL SARS-CoV-2 RNA (ELSA) POSITIVE H (NEGATIVE) Sepsis Event Note - Evaluation Sepsis Screening Result: No Definite Risk - Focused Exam Vital Signs: Vital Signs Temp Pulse Resp BP Pulse Ox 06/01/21 14:27 104 H 22 H 156/96 H 95 06/01/21 14:14 105 H 142/104 H 95 06/01/21 13:45 95 173/99 H 93 L 06/01/21 13:14 96 140/86 94 L 06/01/21 12: 36.4 C 97 22 H 138/88 96 06/01/21 11:14 93 149/92 H 96 06/01/21 10:13 36.6 C 90 16 170/91 H 96 Consult PN Assessment/Plan Procedures: Procedures ASSAY OF FOLIC ACID SERUM (03/12/21) ASSAY OF LACTIC ACID (03/12/21) ASSAY OF LIPASE (03/12/21) ASSAY OF MAGNESIUM (03/12/21) ASSAY OF PHOSPHORUS (03/12/21) ASSAY OF TROPONIN QUANT (03/12/21) ASSAY THYROID STIM HORMONE (03/12/21) BLOOD TYPING SEROLOGIC ABO (03/12/21) BLOOD TYPING SEROLOGIC RH(D) (03/12/21) COMPLETE CBC AUTOMATED (03/12/21) COMPLETE CBC W/AUTO DIFF WBC (03/30/21) COMPREHEN METABOLIC PANEL (03/30/21) CRITICAL CARE FIRST HOUR (03/12/21) DRUG TEST PRSMV CHEM ANLYZR (03/12/21) DRUG TEST PRSMV DIR OPT OBS (03/12/21) ELECTROCARDIOGRAM TRACING (03/30/21) EMERGENCY DEPT VISIT (03/31/21) GLYCOSYLATED HEMOGLOBIN TEST (03/12/21) HEMATOCRIT (03/12/21) HEMOGLOBIN (03/12/21) HYDRATE IV INFUSION ADD-ON (03/12/21) LIPID PANEL (03/12/21) PROTHROMBIN TIME (03/30/21) RBC ANTIBODY SCREEN (03/12/21) ROUTINE VENIPUNCTURE (03/30/21) SARS-COV-2 COVID-19 AMP PRB (03/31/21) THER/PROPH/DIAG INJ IV PUSH (03/12/21) THROMBOPLASTIN TIME PARTIAL (03/12/21) TX/PRO/DX INJ NEW DRUG ADDON (03/12/21) TX/PRO/DX INJ SAME DRUG PUMP REBUILDER (03/12/21) VITAMIN B-12 (03/12/21) VITAMIN D 25 HYDROXY (03/12/21) X-RAY EXAM CHEST 1 VIEW (03/30/21) Problem List Initiated/Reviewed/Updated: Yes My Orders Last 24 Hours: My Active Orders 06/01/21 13:54 Chest 1V Frontal [CR] Stat Plan: I placed a right sided chest tube. The patient has a small air leak. The fluid that came out was serous but cloudy. Some was sent for culture. I will manage his chest tube. It should be on continuous suction/-20mmHg. Repeat CXR in am. He can eat and drink. Would place on broad spectrum antibiotics for suspected infection of the fluid in his chest. Will await culture results. Call with any questions or concerns. Will continue to follow.
--- NOTE | 2021-06-01 15:11 | CR ---
INDICATION: Follow-up status post chest tube placement COMPARISON: A chest x-ray from earlier the same day at 9:08 a.m. TECHNIQUE: Single view of the chest was acquired to summer at 2:12 p.m. FINDINGS: TUBES AND LINES: Right chest tube ending medially at the right apex. HEART AND MEDIASTINUM: Heart size normal. LUNGS AND PLEURAL SPACES: The left lung and the left pleural space appear normal. There is a right hydro pneumothorax. The fluid has near completely been removed. The pneumothorax persists but has improved. The apical air gap on the prior chest x-ray was about 8 centimeters. The right apical air gap is currently about 3 centimeters. Partial re-expansion of the right lung with continued opacity at the right base OSSEOUS STRUCTURES: Age-appropriate appearance. No acute focal finding. IMPRESSION: 1. Right chest tube ending medially at the apex 2. Improved right hydro pneumothorax. Almost all the fluid appears to have been withdrawn. The pneumothorax persists. The air gap has decreased from about 8 centimeters to about 3 centimeters. 3. Left lung and left pleural space appear normal Dictated by Devin Carmona MD @ 06/01/2021 3:10:16 PM (Electronically Signed)
[2021-06-01] MEDS ORDERED: Azithromycin 500 MG Vial IV SCH (15:15)
--- NOTE | 2021-06-01 15:27 | PCM.HP.2 ---
H&P History of Present Illness - General Date of Service: 06/01/21 Admit Problem/Dx: Hydropneumothorax - History of Present Illness Initial Comments - Free Text/Narative: 56-year-old male who was diagnosed with Covid in March was sent to the ER today from the walk-in clinic after presenting with shortness of breath and chest discomfort. Patient states that he has continued shortness of breath since his Covid diagnosis. Chest CT showed hydro-pneumothorax with possibly loculated fluid in the base of the lung. General surgery was consulted in the ER and a right-sided chest tube was placed. 600 mL of cloudy fluid drained. Cultures pending. Right-sided chest tube remains in place. Patient was recently diagnosed with hypertension and placed on losartan 25 mg. Patient does not have any other past medical history. Patient has never had surgery. Patient quit smoking 30 years ago. Patient was a weekly alcohol user until 4 months ago when he quit. No illicit drug use. Currently patient has mild right-sided chest discomfort. Patient denies fever, palpitations, myalgias, headaches, lightheadedness, dizziness or difficulty breathing. Patient denies abdominal pain, nausea, vomiting or diarrhea. CODE STATUS: Full code. - Related Data Allergies/Adverse Reactions: Allergies Allergy/AdvReac Type Severity Reaction Status Date / Time No Known Allergies Allergy Verified 06/01/21 10:13 Home Medications: Home Meds Cholecalciferol (Vitamin D3) [Vitamin D3] 5,000 unit PO DAILY #30 capsule 03/12/21 [Rx] Past Medical History HEENT History: Reports: None Cardiovascular History: Reports: None Respiratory History: Reports: None Gastrointestinal History: Reports: None Genitourinary History: Reports: None Musculoskeletal History: Reports: None Neurological History: Reports: None Psychiatric History: Reports: None Endocrine/Metabolic History: Reports: None Insulin Pump Model and Payroll Auditor: None Hematologic History: Reports: None Immunologic History: Reports: None Oncologic (Cancer) History: Reports: None Dermatologic History: Reports: None - Infectious Disease History Infectious Disease History: Reports: None - Past Surgical History Head Surgeries/Procedures: Reports: None HEENT Surgical History: Reports: None Social & Family History - Family History Family Medical History: No Pertinent Family History - Tobacco Use Tobacco Use Status *Q: Never Tobacco User Second Hand Smoke Exposure: No - Caffeine Use Caffeine Use: Reports: None - Recreational Drug Use Recreational Drug Use: No H&P Review of Systems - Review of Systems: Review Of Systems: See Below General: Denies: Fever, Chills HEENT: Denies: Headaches Pulmonary: Reports: Shortness of Breath, Cough. Denies: Wheezing Cardiovascular: Reports: Chest Pain. Denies: Palpitations, Dyspnea on Exertion, Edema Gastrointestinal: Denies: Abdominal Pain, Constipation, Diarrhea, Nausea, Vomiting Genitourinary: Denies: Dysuria Musculoskeletal: Denies: Leg Pain, Muscle Pain Skin: Denies: Cyanosis, Rash Psychiatric: Denies: Confusion, Anxiety Neurological: Denies: Dizziness, Headache, Numbness, Paresthesia, Pre-Existing Deficit, Tingling Exam - Exam Exam: See Below - Vital Signs Vital Signs: Last Vital Signs Temp 97.6 F 06/01/21 12: Pulse 104 H 06/01/21 14:27 Resp 22 H 06/01/21 14:27 BP 156/96 H 06/01/21 14:27 Pulse Ox 95 06/01/21 14:27 Weight: 140 lb - Exam General: Alert, Oriented, Cooperative HEENT: Conjunctiva Clear, EACs Clear Neck: Supple, Full Range of Motion Lungs: Decreased Breath Sounds, Other (Right-sided chest tube in place. No drainage or bleeding.) Cardiovascular: Regular Rate, Regular Rhythm GI/Abdominal Exam: Normal Bowel Sounds, Soft, Non-Tender Back Exam: Normal Inspection Extremities: Normal Inspection, Normal Range of Motion, Non-Tender, No Pedal Edema. No: Hakeem's Sign Peripheral Pulses: 2+: Dorsalis Pedis (L), Dorsalis Pedis (R) Skin: Warm, Dry, Intact Neurological: Cranial Nerves Intact, Normal Speech, Normal Tone Neuro Extensive - Mental Status: Alert, Oriented x3 - Patient Data Lab Results Last 24 hrs: Laboratory Results - last 24 hr 06/01/21 06/01/21 06/01/21 Range/Units 10:30 10:30 10:30 APTT 26.7 (18.6-31.3) SEC Lactic Acid 0.9 (0.4-2.0) mmol/L Troponin I < 0.050 (0.000-0.056) ng/mL SARS-CoV-2 RNA (ELSA) (NEGATIVE) 06/01/21 Range/Units 11:07 APTT (18.6-31.3) SEC Lactic Acid (0.4-2.0) mmol/L Troponin I (0.000-0.056) ng/mL SARS-CoV-2 RNA (ELSA) POSITIVE H (NEGATIVE) Sepsis Event Note - Evaluation Sepsis Screening Result: No Definite Risk - Focused Exam Vital Signs: Vital Signs Temp Pulse Resp BP Pulse Ox 06/01/21 14:27 104 H 22 H 156/96 H 95 06/01/21 14:14 105 H 142/104 H 95 06/01/21 13:45 95 173/99 H 93 L 06/01/21 13:14 96 140/86 94 L 06/01/21 12:21 97.6 F 97 22 H 138/88 96 06/01/21 11:14 93 149/92 H 96 06/01/21 10:13 97.8 F 90 16 170/91 H 96 - Problem List (1) Hydropneumothorax SNOMED Code(s): 39887341 ICD Code: J94.8 - OTHER SPECIFIED PLEURAL CONDITIONS Status: Acute Current Visit: Yes Problem List Initiated/Reviewed/Updated: Yes Orders Last 24hrs: Active Orders 24 hr Category Date Time Status Admission Status [Patient Status] [ADT] Stat ADT 06/01/21 14:50 Active Chest Tube Management [RC] ASDIRECTED Care 06/01/21 14:51 Active Chest 1V Frontal [CR] Timed Exams 06/02/21 06:00 Ordered AMYLASE,BODY FLUID [BF] Stat Lab 06/01/21 14:00 Received CELL COUNT,BODY FLUID [BF] Stat Lab 06/01/21 14:00 Received CHOLESTEROL,BODY FLUID [BF] Stat Lab 06/01/21 14:00 Received CREATININE,BODY FLUID [BF] Stat Lab 06/01/21 14:00 Received CULTURE BLOOD [BC] Stat Lab 06/01/21 10:30 Received CULTURE BLOOD [BC] Stat Lab 06/01/21 10:55 Received CULTURE, ANAEROBE & AEROBE [MREF] Stat Lab 06/01/21 14:00 Received GLUCOSE,BODY FLUID [BF] Stat Lab 06/01/21 14:00 Received LACTATE DEHYDROGENASE,BODY FL [BF] Stat Lab 06/01/21 14:00 Received LACTATE DEHYDROGENASE,LDH [CHEM] Stat Lab 06/01/21 10:30 Received PH,BODY FLUID [BF] Stat Lab 06/01/21 14:00 Received PROTEIN,BODY FLUID [BF] Stat Lab 06/01/21 14:00 Received TRIGLYCERIDES,BODY FLUID [BF] Stat Lab 06/01/21 14:00 Received Azithromycin [Zithromax] Med 06/01/21 15:15 Active 500 mg IV Q24H Piperacillin/Tazobactam [Piperacil-Tazobact] 3.375 gm Med 06/01/21 17:00 Active Sodium Chloride 0.9% [Normal Saline AdvBag] 50 ml IV Q6H Blood Culture x2 Reflex Set [OM.PC] Stat Oth 06/01/21 10:31 Ordered Medication Orders Azithromycin (Azithromycin 500 Mg Vial) 500 mg IV Q24H SAADIA Piperacillin Sod/Tazobactam (Sod 3.375 gm/ Sodium Chloride) 50 mls @ 100 mls/hr IV Q6H SAADIA Assessment/Plan Comment:: 56-year-old male with right-sided hydropneumothorax. -Surgery is following. Right-sided chest tube has been placed. Fluid sent for studies and cultures. We will follow up with results. Chest x-ray in the morning. -We will start the patient on IV Azithromycin and Zosyn. Follow daily CBC. -Incentive spirometry. Duo nebs. -Continue home medications Losartan 25 mg daily. CODE STATUS: Full code.
[2021-06-01] MEDS ORDERED: Albuterol/Ipratropium 3.0-0.5 MG/3 ML Neb Soln NEB PRN (15:37)
[2021-06-01] MEDS ORDERED: Polyethylene Glycol 3350 Powder 17 GM Packet PO PRN (15:37)
[2021-06-01] MEDS ORDERED: Ondansetron 4 MG/2 ML SDV IVPUSH PRN (15:37)
[2021-06-01] MEDS ORDERED: Ibuprofen 200 MG Tab PO PRN (15:37)
--- NOTE | 2021-06-01 15:37 | OR ---
SURGEON: KIKI MOSES MD DATE OF PROCEDURE: 06/01/2021 PREOPERATIVE DIAGNOSIS: Right hydropneumothorax. POSTOPERATIVE DIAGNOSIS: Right hydropneumothorax. PROCEDURE PERFORMED: Right-sided thoracostomy tube placement. PRIMARY SURGEON: Kiki Moses MD ANESTHESIA: Local. ESTIMATED BLOOD LOSS: 2 mL. FINDINGS: Right-sided hydropneumothorax. 600 mL of cloudy serous fluid that were obtained immediately upon chest tube placement. COMPLICATIONS: None. INDICATIONS: The patient is a 56-year-old male who presented from the walk-in clinic with chest pain. Chest x-ray and chest CT showed a hydropneumothorax on the right side. The decision was made to place a chest tube to relieve the mild tension pneumothorax that this was causing. The patient and I discussed the procedure, expected perioperative course, and the risks. He verbalized understanding and wishes to proceed. PROCEDURE IN DETAIL: The patient was met in the ER room. He was placed on the ER cart in supine position with his right arm at a 90-degree angle out from his body. A time-out was completed verifying the patient's name, age, date of , allergies, and procedure to be performed. The right side of the chest was prepped and draped in usual standard fashion. I anesthetized the 5th and 6th intercostal space with 1% lidocaine plain. 15 mL of this were used. Using the anterior axillary line and his right nipple as a marker, I used a 15-blade to make a 3 cm incision along the chest wall. Using a Rivka clamp, I dissected down to the chest wall. I then placed my hemostats between the ribs over the top of the 6th rib entering the pleural cavity. A large turner of air was noted. I placed my finger through this opening and could feel the pleura inside the chest and the re-expanded lung. A 28-Kinyarwanda chest tube was measured on the chest wall, and it was placed into the chest cavity and secured to the skin at 16 cm. It was secured using interrupted 2-0 silk sutures. The fluid that was coming from the chest tube was serous and slightly cloudy. A sample of this was sent to Pathology for culture. The chest tube was then hooked up to the chest tube device. 600 mL of this yellow cloudy fluid was immediately obtained. When the patient coughed or took a deep breath, there was air noted consistent with an air leak. The tubing was secured to the Pleur-evac using tape. The chest tube exit site was surrounded by petroleum gauze and covered with 4 x 4 gauze and an occlusive dressing. The patient tolerated the procedure well. The postoperative chest x-ray showed the chest tube in good position with some re-expansion of the lung. CHACE / LALY /[id number]
[2021-06-01] MEDS: Azithromycin 500 MG in Sodium Chloride 0.9% 250 ML IV SCH (16:46)
--- NOTE | 2021-06-01 17:48 | CR ---
INDICATION: Bradycardia, diaphoresis TECHNIQUE: Chest 1 view. COMPARISON: 2:12 p.m. FINDINGS: Cardiovascular and mediastinum: Heart size and vasculature are normal in caliber and appearance. Mediastinum is within normal limits. Lungs and pleural space: Lung opacities. No sign of infiltrate or mass. Slight decrease in right pneumothorax with stable position of right chest tube. No sizable effusion. No pneumothorax. Bones and soft tissues: No significant findings. IMPRESSION: Slight decreasing right pneumothorax with stable position of right chest tube. Dictated by Taco Hamm MD @ 06/01/2021 5:47:36 PM (Electronically Signed)
[2021-06-01] MEDS: Morphine 2 MG/ML SYRINGE IVPUSH PRN ×2 (18:31→22:38)
[2021-06-01] MEDS: Piperacillin/Tazobactam 3.375 GM in Sodium Chloride 0.9% 50 ML IV SCH ×2 (18:36→22:37)
[2021-06-01] MEDS: Acetaminophen 325 MG Tab PO PRN (20:47)
[2021-06-02] MEDS: Morphine 2 MG/ML SYRINGE IVPUSH PRN ×3 (02:31→18:14)
[2021-06-02] MEDS: Acetaminophen 325 MG Tab PO PRN ×2 (04:05→20:00)
[2021-06-02] MEDS: Piperacillin/Tazobactam 3.375 GM in Sodium Chloride 0.9% 50 ML IV SCH ×4 (06:11→23:15)
--- NOTE | 2021-06-02 06:38 | CR ---
Indication: Chest tube follow-up Comparison: Single-view chest June 01, 2021 Technique: Single AP view chest Findings: There is interval placement of right-sided thoracostomy tube in satisfactory position. There is overall decreased pleural fluid and improved re-expansion of the right hemithorax with persistent mild to moderate residual pneumothorax. The left hemithorax is clear. The cardiac silhouette is mildly prominent. The bony thorax is grossly intact. Impression: Interval placement of right-sided thoracostomy tube in satisfactory position with overall decreased pleural effusion and pneumothorax from comparison with residual mild to moderate pneumothorax. Dictated by Alvaro Tate MD @ 06/02/2021 6:37:54 AM (Electronically Signed)
--- NOTE | 2021-06-02 08:16 | PCM.CONSN ---
- General Info Date of Service: 06/02/21 Admission Dx/Problem (Free Text): Right hydropneumothorax Subjective Update: Patient complains of pain in chest with deep breaths and movement. Given morphine last night with good resolution of pain. Feels like his breathing is better overall. - Review of Systems General: Reports: No Symptoms HEENT: Reports: No Symptoms Pulmonary: Reports: No Symptoms Cardiovascular: Reports: No Symptoms Gastrointestinal: Reports: No Symptoms Musculoskeletal: Reports: No Symptoms - Patient Data Vitals - Most Recent: Last Vital Signs Temp 36.6 C 06/01/21 19:15 Pulse 93 06/02/21 00:00 Resp 18 06/02/21 00:00 BP 134/90 06/02/21 00:00 Pulse Ox 93 L 06/01/21 19:15 Weight - Most Recent: 94.71 kg I&O - Last 24 Hours: Intake & Output 06/01/21 06/02/21 06/02/21 22:59 06:59 14:59 Intake Total 240 Balance 240 Lab Results Last 24 Hours: Laboratory Results - last 24 hr 06/01/21 06/01/21 06/01/21 Range/Units 10:30 10:30 10:30 WBC (4.0-11.0) K/uL RBC (4.50-5.90) M/uL Hgb (13.0-17.0) g/dL Hct (38.0-50.0) % MCV (80.0-98.0) fL MCH (27.0-32.0) pg MCHC (31.0-37.0) g/dL RDW Std Deviation (28.0-62.0) fl RDW Coeff of James (11.0-15.0) % Plt Count (150-400) K/uL MPV (7.40-12.00) fL Neut % (Auto) (48.0-80.0) % Lymph % (Auto) (16.0-40.0) % Floyd % (Auto) (0.0-15.0) % Eos % (Auto) (0.0-7.0) % Baso % (Auto) (0.0-1.5) % Neut # (Auto) (1.4-5.7) K/uL Lymph # (Auto) (0.6-2.4) K/uL Floyd # (Auto) (0.0-0.8) K/uL Eos # (Auto) (0.0-0.7) K/uL Baso # (Auto) (0.0-0.1) K/uL Nucleated RBC % /100WBC Nucleated RBCs # K/uL APTT 26.7 (18.6-31.3) SEC Lactic Acid 0.9 (0.4-2.0) mmol/L Lactate Dehydrogenase (81-234) U/L Troponin I < 0.050 (0.000-0.056) ng/mL Fluid Type Fluid Color Fluid Appearance Fluid pH Fluid WBC /uL Fluid RBC /uL Fluid Mononuclear Cell % Fl Polymorphonucl Cell % Fluid Glucose mg/dL Fluid Total Protein g/dL Fluid LDH U/L Fluid Amylase U/L Fluid Creatinine ng/dL Fluid Cholesterol g/dL Fluid Triglycerides mg/dL SARS-CoV-2 RNA (ELSA) (NEGATIVE) 06/01/21 06/01/21 06/01/21 Range/Units 10:30 11:07 14:00 WBC (4.0-11.0) K/uL RBC (4.50-5.90) M/uL Hgb (13.0-17.0) g/dL Hct (38.0-50.0) % MCV (80.0-98.0) fL MCH (27.0-32.0) pg MCHC (31.0-37.0) g/dL RDW Std Deviation (28.0-62.0) fl RDW Coeff of James (11.0-15.0) % Plt Count (150-400) K/uL MPV (7.40-12.00) fL Neut % (Auto) (48.0-80.0) % Lymph % (Auto) (16.0-40.0) % Floyd % (Auto) (0.0-15.0) % Eos % (Auto) (0.0-7.0) % Baso % (Auto) (0.0-1.5) % Neut # (Auto) (1.4-5.7) K/uL Lymph # (Auto) (0.6-2.4) K/uL Floyd # (Auto) (0.0-0.8) K/uL Eos # (Auto) (0.0-0.7) K/uL Baso # (Auto) (0.0-0.1) K/uL Nucleated RBC % /100WBC Nucleated RBCs # K/uL APTT (18.6-31.3) SEC Lactic Acid (0.4-2.0) mmol/L Lactate Dehydrogenase 187 (81-234) U/L Troponin I (0.000-0.056) ng/mL Fluid Type PL Fluid Color PINK Fluid Appearance CLOUDY Fluid pH 8.0 Fluid WBC 83373 /uL Fluid RBC 15228 /uL Fluid Mononuclear Cell 9 % Fl Polymorphonucl Cell 91 % Fluid Glucose 0 mg/dL Fluid Total Protein 5.9 g/dL Fluid LDH U/L Fluid Amylase 28 U/L Fluid Creatinine 0.9 ng/dL Fluid Cholesterol g/dL Fluid Triglycerides 54 mg/dL SARS-CoV-2 RNA (ELSA) POSITIVE H (NEGATIVE) 06/01/21 06/01/21 06/02/21 Range/Units 14:00 14:00 06:32 WBC 11.44 H (4.0-11.0) K/uL RBC 5.61 (4.50-5.90) M/uL Hgb 14.2 (13.0-17.0) g/dL Hct 45.9 (38.0-50.0) % MCV 81.8 (80.0-98.0) fL MCH 25.3 L (27.0-32.0) pg MCHC 30.9 L (31.0-37.0) g/dL RDW Std Deviation 51.0 (28.0-62.0) fl RDW Coeff of James 17 H (11.0-15.0) % Plt Count 282 (150-400) K/uL MPV 11.80 (7.40-12.00) fL Neut % (Auto) 68.5 (48.0-80.0) % Lymph % (Auto) 18.1 (16.0-40.0) % Floyd % (Auto) 12.1 (0.0-15.0) % Eos % (Auto) 1.0 (0.0-7.0) % Baso % (Auto) 0.3 (0.0-1.5) % Neut # (Auto) 7.8 H (1.4-5.7) K/uL Lymph # (Auto) 2.1 (0.6-2.4) K/uL Floyd # (Auto) 1.4 H (0.0-0.8) K/uL Eos # (Auto) 0.1 (0.0-0.7) K/uL Baso # (Auto) 0.0 (0.0-0.1) K/uL Nucleated RBC % 0.0 /100WBC Nucleated RBCs # 0 K/uL APTT (18.6-31.3) SEC Lactic Acid (0.4-2.0) mmol/L Lactate Dehydrogenase (81-234) U/L Troponin I (0.000-0.056) ng/mL Fluid Type PL PL Fluid Color Fluid Appearance Fluid pH Fluid WBC /uL Fluid RBC /uL Fluid Mononuclear Cell % Fl Polymorphonucl Cell % Fluid Glucose mg/dL Fluid Total Protein g/dL Fluid LDH 3005 U/L Fluid Amylase U/L Fluid Creatinine ng/dL Fluid Cholesterol 129.0 g/dL Fluid Triglycerides mg/dL SARS-CoV-2 RNA ([facility]) (NEGATIVE) Med Orders - Current: Current Medications Acetaminophen (Acetaminophen 325 Mg Tab) 650 mg PO Q4H PRN PRN Reason: Pain (Mild 1-3)/fever Last Admin: 06/02/21 04:05 Dose: 650 mg Documented by: Albuterol/Ipratropium (Albuterol/Ipratropium 3.0-0.5 Mg/3 Ml Neb Soln) 3 ml NEB Q4HRRT PRN PRN Reason: Shortness Of Breath/wheezing Piperacillin Sod/Tazobactam (Sod 3.375 gm/ Sodium Chloride) 50 mls @ 100 mls/hr IV Q6H [facility] Last Admin: 06/02/21 06:11 Dose: 100 mls/hr Documented by: Azithromycin 500 mg/ Sodium (Chloride) 250 mls @ 250 mls/hr IV Q24H [facility] Last Admin: 06/01/21 16:46 Dose: 250 mls/hr Documented by: Ibuprofen (Ibuprofen 200 Mg Tab) 200 mg PO Q6H PRN PRN Reason: Pain (mild 1-3) Morphine Sulfate (Morphine 2 Mg/Ml Syringe) 2 mg IVPUSH Q4H PRN PRN Reason: Pain (severe 7-10) Last Admin: 06/02/21 02:31 Dose: 2 mg Documented by: Ondansetron HCl (Ondansetron 4 Mg/2 Ml Sdv) 4 mg IVPUSH Q4H PRN PRN Reason: Nausea Polyethylene Glycol (Polyethylene Glycol 3350 Powder 17 Gm Packet) 17 gm PO DAILY PRN PRN Reason: Constipation Discontinued Medications Hydromorphone HCl (Hydromorphone 1 Mg/Ml Syringe) 0.5 mg IVPUSH ONETIME ONE Stop: 06/01/21 13:56 Last Admin: 06/01/21 14:07 Dose: 0.5 mg Documented by: Piperacillin Sod/Tazobactam (Sod 3.375 gm/ Sodium Chloride) 50 mls @ 100 mls/hr IV ONETIME ONE Stop: 06/01/21 11:00 Last Admin: 06/01/21 11:00 Dose: 100 mls/hr Documented by: Iopamidol (Iopamidol 755 Mg/Ml 500 Ml Multipack Bottle) 75 ml IVPUSH ONETIME STA Stop: 06/01/21 11:38 Last Admin: 06/01/21 11:37 Dose: 75 ml Documented by: Lidocaine HCl (Lidocaine 1% 10 Ml Mdv) 20 ml INJECT ONETIME ONE Stop: 06/01/21 13:23 Last Admin: 06/01/21 14:05 Dose: Not Given Documented by: Lidocaine HCl (Lidocaine 1% 5 Ml Sdv) Confirm Administered Dose 20 ml .ROUTE .STK-MED ONE Stop: 06/01/21 13:27 Last Admin: 06/01/21 14:05 Dose: Not Given Documented by: Lidocaine HCl (Lidocaine 1% 10 Ml Mdv) 20 ml INJECT ONETIME ONE Stop: 06/01/21 14:02 Last Admin: 06/01/21 14:05 Dose: Not Given Documented by: Lidocaine HCl (Lidocaine 1% 5 Ml Sdv) 20 ml INJECT ONETIME ONE Stop: 06/01/21 14:04 Last Admin: 06/01/21 14:04 Dose: 15 ml Documented by: Morphine Sulfate (Morphine 2 Mg/Ml Syringe) 6 mg IVPUSH NOW STA Stop: 06/01/21 13:56 Last Admin: 06/01/21 14:05 Dose: Not Given Documented by: - Exam Quality Assessment: Supplemental Oxygen General: Alert, Oriented, Cooperative Lungs: Normal Respiratory Effort, Decreased Breath Sounds (right side of chest, left side clear), Other (Minimal air leak seen. Only a few bubbles with talking but greatly improved. ) Cardiovascular: Regular Rate, Regular Rhythm GI/Abdominal Exam: Soft, Non-Tender Sepsis Event Note - Evaluation Sepsis Screening Result: No Definite Risk - Focused Exam Vital Signs: Vital Signs Pulse Resp BP 06/02/21 00:00 93 18 134/90 Consult PN Assessment/Plan Procedures: Procedures ASSAY OF FOLIC ACID SERUM (03/12/21) ASSAY OF LACTIC ACID (03/12/21) ASSAY OF LIPASE (03/12/21) ASSAY OF MAGNESIUM (03/12/21) ASSAY OF PHOSPHORUS (03/12/21) ASSAY OF TROPONIN QUANT (03/12/21) ASSAY THYROID STIM HORMONE (03/12/21) BLOOD TYPING SEROLOGIC ABO (03/12/21) BLOOD TYPING SEROLOGIC RH(D) (03/12/21) COMPLETE CBC AUTOMATED (03/12/21) COMPLETE CBC W/AUTO DIFF WBC (03/30/21) COMPREHEN METABOLIC PANEL (03/30/21) CRITICAL CARE FIRST HOUR (03/12/21) DRUG TEST PRSMV CHEM ANLYZR (03/12/21) DRUG TEST PRSMV DIR OPT OBS (03/12/21) ELECTROCARDIOGRAM TRACING (03/30/21) EMERGENCY DEPT VISIT (03/31/21) GLYCOSYLATED HEMOGLOBIN TEST (03/12/21) HEMATOCRIT (03/12/21) HEMOGLOBIN (03/12/21) HYDRATE IV INFUSION ADD-ON (03/12/21) LIPID PANEL (03/12/21) PROTHROMBIN TIME (03/30/21) RBC ANTIBODY SCREEN (03/12/21) ROUTINE VENIPUNCTURE (03/30/21) SARS-COV-2 COVID-19 AMP PRB (03/31/21) THER/PROPH/DIAG INJ IV PUSH (03/12/21) THROMBOPLASTIN TIME PARTIAL (03/12/21) TX/PRO/DX INJ NEW DRUG ADDON (03/12/21) TX/PRO/DX INJ SAME DRUG SENIOR INFORMATION SECURITY ENGINEER (03/12/21) VITAMIN B-12 (03/12/21) VITAMIN D 25 HYDROXY (03/12/21) X-RAY EXAM CHEST 1 VIEW (03/30/21) (1) Hydropneumothorax SNOMED Code(s): 08830719 Code(s): J94.8 - OTHER SPECIFIED PLEURAL CONDITIONS Current Visit: Yes Problem List Initiated/Reviewed/Updated: Yes My Orders Last 24 Hours: My Active Orders 06/01/21 14:51 Chest Tube Management [RC] ASDIRECTED Plan: Chest XR shows that lung is continuing to re-expand but pneumothorax is not completely resolved. Air leak greatly improved. Will keep on suction for now. Repeat CXR in the am tomorrow morning.
[2021-06-02 08:24] LABS: BLOOD UREA NITROGEN,BUN 17 mg/dL (7.0-18.0); CARBON DIOXIDE,CO2 27.7 mmol/L (21.0-32.0); CHLORIDE,CL 100 mmol/L (98-107); GLUCOSE RANDOM 91 mg/dL (74-106); POTASSIUM,K 4.4 mmol/L (3.5-5.1); SODIUM,NA 135 mmol/L (136-148)
--- NOTE | 2021-06-02 08:26 | PCM.PN ---
- General Info Date of Service: 06/02/21 Admission Dx/Problem (Free Text): Right hydropneumothorax Subjective Update: 56-year-old male admitted for right-sided hydropneumothorax, had chest tube placed in the ER by general surgery who is also following. This morning, patient states he feels much better. He is able to stand up and sit himself in the chair. Continues to complain of mild right-sided chest wall discomfort with deep breathing or movement. Patient was started on morphine yesterday which has improved his symptoms. Patient states it is easier to breathe today. He was instructed on incentive spirometry. Patient is tolerating diet. Patient denies fever, chills, palpitations, abdominal pain, nausea, vomiting, headaches, lightheadedness, numbness or dizziness. - Review of Systems General: Denies: Fever, Chills HEENT: Denies: Headaches Pulmonary: Reports: Cough. Denies: Shortness of Breath Cardiovascular: Reports: Chest Pain. Denies: Palpitations, Edema Gastrointestinal: Denies: Abdominal Pain, Constipation, Diarrhea, Nausea, Vomiting Genitourinary: Denies: Dysuria Musculoskeletal: Denies: Neck Pain, Leg Pain Skin: Denies: Rash Neurological: Denies: Dizziness, Headache, Numbness, Paresthesia, Pre-Existing Deficit - Patient Data Vitals - Most Recent: Last Vital Signs Temp 97.1 F 06/02/21 04:00 Pulse 85 06/02/21 04:00 Resp 22 H 06/02/21 04:00 BP 140/95 H 06/02/21 04:00 Pulse Ox 94 L 06/02/21 04:00 Weight - Most Recent: 208 lb 12.8 oz I&O - Last 24 Hours: Intake & Output 06/01/21 06/02/21 06/02/21 22:59 06:59 14:59 Intake Total 240 300 Balance 240 300 Lab Results Last 24 Hours: Laboratory Results - last 24 hr 06/01/21 06/01/21 06/01/21 Range/Units 10:30 10:30 10:30 WBC (4.0-11.0) K/uL RBC (4.50-5.90) M/uL Hgb (13.0-17.0) g/dL Hct (38.0-50.0) % MCV (80.0-98.0) fL MCH (27.0-32.0) pg MCHC (31.0-37.0) g/dL RDW Std Deviation (28.0-62.0) fl RDW Coeff of James (11.0-15.0) % Plt Count (150-400) K/uL MPV (7.40-12.00) fL Neut % (Auto) (48.0-80.0) % Lymph % (Auto) (16.0-40.0) % Glynn % (Auto) (0.0-15.0) % Eos % (Auto) (0.0-7.0) % Baso % (Auto) (0.0-1.5) % Neut # (Auto) (1.4-5.7) K/uL Lymph # (Auto) (0.6-2.4) K/uL Glynn # (Auto) (0.0-0.8) K/uL Eos # (Auto) (0.0-0.7) K/uL Baso # (Auto) (0.0-0.1) K/uL Nucleated RBC % /100WBC Nucleated RBCs # K/uL APTT 26.7 (18.6-31.3) SEC Lactic Acid 0.9 (0.4-2.0) mmol/L Lactate Dehydrogenase (81-234) U/L Troponin I < 0.050 (0.000-0.056) ng/mL Fluid Type Fluid Color Fluid Appearance Fluid pH Fluid WBC /uL Fluid RBC /uL Fluid Mononuclear Cell % Fl Polymorphonucl Cell % Fluid Glucose mg/dL Fluid Total Protein g/dL Fluid LDH U/L Fluid Amylase U/L Fluid Creatinine ng/dL Fluid Cholesterol g/dL Fluid Triglycerides mg/dL SARS-CoV-2 RNA (EL[facility]) (NEGATIVE) 06/01/21 06/01/21 06/01/21 Range/Units 10:30 11:07 14:00 WBC (4.0-11.0) K/uL RBC (4.50-5.90) M/uL Hgb (13.0-17.0) g/dL Hct (38.0-50.0) % MCV (80.0-98.0) fL MCH (27.0-32.0) pg MCHC (31.0-37.0) g/dL RDW Std Deviation (28.0-62.0) fl RDW Coeff of James (11.0-15.0) % Plt Count (150-400) K/uL MPV (7.40-12.00) fL Neut % (Auto) (48.0-80.0) % Lymph % (Auto) (16.0-40.0) % Glynn % (Auto) (0.0-15.0) % Eos % (Auto) (0.0-7.0) % Baso % (Auto) (0.0-1.5) % Neut # (Auto) (1.4-5.7) K/uL Lymph # (Auto) (0.6-2.4) K/uL Glynn # (Auto) (0.0-0.8) K/uL Eos # (Auto) (0.0-0.7) K/uL Baso # (Auto) (0.0-0.1) K/uL Nucleated RBC % /100WBC Nucleated RBCs # K/uL APTT (18.6-31.3) SEC Lactic Acid (0.4-2.0) mmol/L Lactate Dehydrogenase 187 (81-234) U/L Troponin I (0.000-0.056) ng/mL Fluid Type PL Fluid Color PINK Fluid Appearance CLOUDY Fluid pH 8.0 Fluid WBC 29453 /uL Fluid RBC 86448 /uL Fluid Mononuclear Cell 9 % Fl Polymorphonucl Cell 91 % Fluid Glucose 0 mg/dL Fluid Total Protein 5.9 g/dL Fluid LDH U/L Fluid Amylase 28 U/L Fluid Creatinine 0.9 ng/dL Fluid Cholesterol g/dL Fluid Triglycerides 54 mg/dL SARS-CoV-2 RNA (EL[facility]) POSITIVE H (NEGATIVE) 06/01/21 06/01/21 06/02/21 Range/Units 14:00 14:00 06:32 WBC 11.44 H (4.0-11.0) K/uL RBC 5.61 (4.50-5.90) M/uL Hgb 14.2 (13.0-17.0) g/dL Hct 45.9 (38.0-50.0) % MCV 81.8 (80.0-98.0) fL MCH 25.3 L (27.0-32.0) pg MCHC 30.9 L (31.0-37.0) g/dL RDW Std Deviation 51.0 (28.0-62.0) fl RDW Coeff of James 17 H (11.0-15.0) % Plt Count 282 (150-400) K/uL MPV 11.80 (7.40-12.00) fL Neut % (Auto) 68.5 (48.0-80.0) % Lymph % (Auto) 18.1 (16.0-40.0) % Glynn % (Auto) 12.1 (0.0-15.0) % Eos % (Auto) 1.0 (0.0-7.0) % Baso % (Auto) 0.3 (0.0-1.5) % Neut # (Auto) 7.8 H (1.4-5.7) K/uL Lymph # (Auto) 2.1 (0.6-2.4) K/uL Glynn # (Auto) 1.4 H (0.0-0.8) K/uL Eos # (Auto) 0.1 (0.0-0.7) K/uL Baso # (Auto) 0.0 (0.0-0.1) K/uL Nucleated RBC % 0.0 /100WBC Nucleated RBCs # 0 K/uL APTT (18.6-31.3) SEC Lactic Acid (0.4-2.0) mmol/L Lactate Dehydrogenase (81-234) U/L Troponin I (0.000-0.056) ng/mL Fluid Type PL PL Fluid Color Fluid Appearance Fluid pH Fluid WBC /uL Fluid RBC /uL Fluid Mononuclear Cell % Fl Polymorphonucl Cell % Fluid Glucose mg/dL Fluid Total Protein g/dL Fluid LDH 3005 U/L Fluid Amylase U/L Fluid Creatinine ng/dL Fluid Cholesterol 129.0 g/dL Fluid Triglycerides mg/dL SARS-CoV-2 RNA ([facility]) (NEGATIVE) Med Orders - Current: Current Medications Acetaminophen (Acetaminophen 325 Mg Tab) 650 mg PO Q4H PRN PRN Reason: Pain (Mild 1-3)/fever Last Admin: 06/02/21 04:05 Dose: 650 mg Documented by: Albuterol/Ipratropium (Albuterol/Ipratropium 3.0-0.5 Mg/3 Ml Neb Soln) 3 ml NEB Q4HRRT PRN PRN Reason: Shortness Of Breath/wheezing Piperacillin Sod/Tazobactam (Sod 3.375 gm/ Sodium Chloride) 50 mls @ 100 mls/hr IV Q6H [facility] Last Infusion: 06/02/21 08:17 Dose: Infused Documented by: Azithromycin 500 mg/ Sodium (Chloride) 250 mls @ 250 mls/hr IV Q24H [facility] Last Admin: 06/01/21 16:46 Dose: 250 mls/hr Documented by: Ibuprofen (Ibuprofen 200 Mg Tab) 200 mg PO Q6H PRN PRN Reason: Pain (mild 1-3) Morphine Sulfate (Morphine 2 Mg/Ml Syringe) 2 mg IVPUSH Q4H PRN PRN Reason: Pain (severe 7-10) Last Admin: 06/02/21 02:31 Dose: 2 mg Documented by: Ondansetron HCl (Ondansetron 4 Mg/2 Ml Sdv) 4 mg IVPUSH Q4H PRN PRN Reason: Nausea Polyethylene Glycol (Polyethylene Glycol 3350 Powder 17 Gm Packet) 17 gm PO DAILY PRN PRN Reason: Constipation Discontinued Medications Hydromorphone HCl (Hydromorphone 1 Mg/Ml Syringe) 0.5 mg IVPUSH ONETIME ONE Stop: 06/01/21 13:56 Last Admin: 06/01/21 14:07 Dose: 0.5 mg Documented by: Piperacillin Sod/Tazobactam (Sod 3.375 gm/ Sodium Chloride) 50 mls @ 100 mls/hr IV ONETIME ONE Stop: 06/01/21 11:00 Last Admin: 06/01/21 11:00 Dose: 100 mls/hr Documented by: Iopamidol (Iopamidol 755 Mg/Ml 500 Ml Multipack Bottle) 75 ml IVPUSH ONETIME STA Stop: 06/01/21 11:38 Last Admin: 06/01/21 11:37 Dose: 75 ml Documented by: Lidocaine HCl (Lidocaine 1% 10 Ml Mdv) 20 ml INJECT ONETIME ONE Stop: 06/01/21 13:23 Last Admin: 06/01/21 14:05 Dose: Not Given Documented by: Lidocaine HCl (Lidocaine 1% 5 Ml Sdv) Confirm Administered Dose 20 ml .ROUTE .STK-MED ONE Stop: 06/01/21 13:27 Last Admin: 06/01/21 14:05 Dose: Not Given Documented by: Lidocaine HCl (Lidocaine 1% 10 Ml Mdv) 20 ml INJECT ONETIME ONE Stop: 06/01/21 14:02 Last Admin: 06/01/21 14:05 Dose: Not Given Documented by: Lidocaine HCl (Lidocaine 1% 5 Ml Sdv) 20 ml INJECT ONETIME ONE Stop: 06/01/21 14:04 Last Admin: 06/01/21 14:04 Dose: 15 ml Documented by: Morphine Sulfate (Morphine 2 Mg/Ml Syringe) 6 mg IVPUSH NOW STA Stop: 06/01/21 13:56 Last Admin: 06/01/21 14:05 Dose: Not Given Documented by: - Exam Quality Assessment: Supplemental Oxygen General: Alert, Oriented, Cooperative, No Acute Distress HEENT: Pupils Equal, Pupils Reactive Neck: Supple Lungs: Other (Right chest decreased breath sounds. Left chest normal.) Cardiovascular: Regular Rate, Regular Rhythm GI/Abdominal Exam: Normal Bowel Sounds, Soft, Non-Tender Extremities: Normal Inspection, Non-Tender, No Pedal Edema Peripheral Pulses: 2+: Dorsalis Pedis (L), Dorsalis Pedis (R) Skin: No: Rash Wound/Incisions: Dressing Dry and Intact Neurological: No New Focal Deficit - Patient Data Lab Results Last 24 hrs: Laboratory Results - last 24 hr 06/01/21 06/01/21 06/01/21 Range/Units 10:30 10:30 10:30 WBC (4.0-11.0) K/uL RBC (4.50-5.90) M/uL Hgb (13.0-17.0) g/dL Hct (38.0-50.0) % MCV (80.0-98.0) fL MCH (27.0-32.0) pg MCHC (31.0-37.0) g/dL RDW Std Deviation (28.0-62.0) fl RDW Coeff of James (11.0-15.0) % Plt Count (150-400) K/uL MPV (7.40-12.00) fL Neut % (Auto) (48.0-80.0) % Lymph % (Auto) (16.0-40.0) % Glynn % (Auto) (0.0-15.0) % Eos % (Auto) (0.0-7.0) % Baso % (Auto) (0.0-1.5) % Neut # (Auto) (1.4-5.7) K/uL Lymph # (Auto) (0.6-2.4) K/uL Glynn # (Auto) (0.0-0.8) K/uL Eos # (Auto) (0.0-0.7) K/uL Baso # (Auto) (0.0-0.1) K/uL Nucleated RBC % /100WBC Nucleated RBCs # K/uL APTT 26.7 (18.6-31.3) SEC Lactic Acid 0.9 (0.4-2.0) mmol/L Lactate Dehydrogenase (81-234) U/L Troponin I < 0.050 (0.000-0.056) ng/mL Fluid Type Fluid Color Fluid Appearance Fluid pH Fluid WBC /uL Fluid RBC /uL Fluid Mononuclear Cell % Fl Polymorphonucl Cell % Fluid Glucose mg/dL Fluid Total Protein g/dL Fluid LDH U/L Fluid Amylase U/L Fluid Creatinine ng/dL Fluid Cholesterol g/dL Fluid Triglycerides mg/dL SARS-CoV-2 RNA ([facility]) (NEGATIVE) 06/01/21 06/01/21 06/01/21 Range/Units 10:30 11:07 14:00 WBC (4.0-11.0) K/uL RBC (4.50-5.90) M/uL Hgb (13.0-17.0) g/dL Hct (38.0-50.0) % MCV (80.0-98.0) fL MCH (27.0-32.0) pg MCHC (31.0-37.0) g/dL RDW Std Deviation (28.0-62.0) fl RDW Coeff of James (11.0-15.0) % Plt Count (150-400) K/uL MPV (7.40-12.00) fL Neut % (Auto) (48.0-80.0) % Lymph % (Auto) (16.0-40.0) % Glynn % (Auto) (0.0-15.0) % Eos % (Auto) (0.0-7.0) % Baso % (Auto) (0.0-1.5) % Neut # (Auto) (1.4-5.7) K/uL Lymph # (Auto) (0.6-2.4) K/uL Glynn # (Auto) (0.0-0.8) K/uL Eos # (Auto) (0.0-0.7) K/uL Baso # (Auto) (0.0-0.1) K/uL Nucleated RBC % /100WBC Nucleated RBCs # K/uL APTT (18.6-31.3) SEC Lactic Acid (0.4-2.0) mmol/L Lactate Dehydrogenase 187 (81-234) U/L Troponin I (0.000-0.056) ng/mL Fluid Type PL Fluid Color PINK Fluid Appearance CLOUDY Fluid pH 8.0 Fluid WBC 97413 /uL Fluid RBC 13144 /uL Fluid Mononuclear Cell 9 % Fl Polymorphonucl Cell 91 % Fluid Glucose 0 mg/dL Fluid Total Protein 5.9 g/dL Fluid LDH U/L Fluid Amylase 28 U/L Fluid Creatinine 0.9 ng/dL Fluid Cholesterol g/dL Fluid Triglycerides 54 mg/dL SARS-CoV-2 RNA ([facility]) POSITIVE H (NEGATIVE) 06/01/21 06/01/21 06/02/21 Range/Units 14:00 14:00 06:32 WBC 11.44 H (4.0-11.0) K/uL RBC 5.61 (4.50-5.90) M/uL Hgb 14.2 (13.0-17.0) g/dL Hct 45.9 (38.0-50.0) % MCV 81.8 (80.0-98.0) fL MCH 25.3 L (27.0-32.0) pg MCHC 30.9 L (31.0-37.0) g/dL RDW Std Deviation 51.0 (28.0-62.0) fl RDW Coeff of James 17 H (11.0-15.0) % Plt Count 282 (150-400) K/uL MPV 11.80 (7.40-12.00) fL Neut % (Auto) 68.5 (48.0-80.0) % Lymph % (Auto) 18.1 (16.0-40.0) % Glynn % (Auto) 12.1 (0.0-15.0) % Eos % (Auto) 1.0 (0.0-7.0) % Baso % (Auto) 0.3 (0.0-1.5) % Neut # (Auto) 7.8 H (1.4-5.7) K/uL Lymph # (Auto) 2.1 (0.6-2.4) K/uL Glynn # (Auto) 1.4 H (0.0-0.8) K/uL Eos # (Auto) 0.1 (0.0-0.7) K/uL Baso # (Auto) 0.0 (0.0-0.1) K/uL Nucleated RBC % 0.0 /100WBC Nucleated RBCs # 0 K/uL APTT (18.6-31.3) SEC Lactic Acid (0.4-2.0) mmol/L Lactate Dehydrogenase (81-234) U/L Troponin I (0.000-0.056) ng/mL Fluid Type PL PL Fluid Color Fluid Appearance Fluid pH Fluid WBC /uL Fluid RBC /uL Fluid Mononuclear Cell % Fl Polymorphonucl Cell % Fluid Glucose mg/dL Fluid Total Protein g/dL Fluid LDH 3005 U/L Fluid Amylase U/L Fluid Creatinine ng/dL Fluid Cholesterol 129.0 g/dL Fluid Triglycerides mg/dL SARS-CoV-2 RNA ([facility]) (NEGATIVE) Result Diagrams: 06/02/21 06:32 06/02/21 06:32 Sepsis Event Note - Evaluation Sepsis Screening Result: No Definite Risk - Focused Exam Vital Signs: Vital Signs Temp Pulse Resp BP Pulse Ox 06/02/21 04:00 97.1 F 85 22 H 140/95 H 94 L 06/02/21 00:00 93 18 134/90 - Problem List & Annotations (1) Hydropneumothorax SNOMED Code(s): 36696168 Code(s): J94.8 - OTHER SPECIFIED PLEURAL CONDITIONS Status: Acute Current Visit: Yes - Problem List Review Problem List Initiated/Reviewed/Updated: Yes - My Orders Last 24 Hours: My Active Orders 06/01/21 Lunch Regular Diet [DIET] 06/01/21 15:37 Ambulate [RC] ASDIRECTED Oxygen Therapy [RC] PRN VTE/DVT Education [RC] PER UNIT ROUTINE Vital Signs [RC] Q4H Consult to Physician [CONS] Routine Acetaminophen [TylenoL] 650 mg PO Q4H PRN Albuterol/Ipratropium [DuoNeb 3.0-0.5 MG/3 ML] 3 ml NEB Q4HRRT PRN Ibuprofen [Motrin] 200 mg PO Q6H PRN Ondansetron [Zofran] 4 mg IVPUSH Q4H PRN polyethylene glycoL 3350 [MiraLAX] 17 gm PO DAILY PRN Resuscitation Status Routine 06/01/21 15:38 Antiembolic Devices [RC] PER UNIT ROUTINE Sequential Compression Device [OM.PC] Per Unit Routine 06/01/21 15:40 Notify Provider Consults [RC] ASDIRECTED RT Aerosol Therapy [RC] ASDIRECTED 06/01/21 18:13 Morphine 2 mg IVPUSH Q4H PRN 06/01/21 18:14 Telemetry Monitoring [Cardiac Monitoring] [RC] Q8H 06/02/21 06:32 COMPREHENSIVE METABOLIC PN,CMP [CHEM] AM - Plan Plan:: 56-year-old male with right-sided hydropneumothorax. -Surgery is following. Right-sided chest tube has been placed. Chest x-ray this morning shows lungs reexpanding but pneumothorax is now completely resolved. As per general surgery recommendations, we will continue suction for now. Repeat another chest x-ray in the morning. Fluid studies and cultures pending. We will follow up with results. Morphine for pain. -Continue IV Azithromycin and Zosyn. Follow daily CBC. -Incentive spirometry. Duo nebs. -Continue home medications Losartan 25 mg daily.
[2021-06-02] MEDS: Losartan 50 MG Tab PO SCH (09:43)
[2021-06-02] MEDS: Azithromycin 500 MG in Sodium Chloride 0.9% 250 ML IV SCH (16:35)
[2021-06-03 07:34] LABS: BLOOD UREA NITROGEN,BUN 12 mg/dL (7.0-18.0); CARBON DIOXIDE,CO2 31.2 mmol/L (21.0-32.0); CHLORIDE,CL 102 mmol/L (98-107); GLUCOSE RANDOM 122 mg/dL (74-106); POTASSIUM,K 4.1 mmol/L (3.5-5.1); SODIUM,NA 138 mmol/L (136-148)
--- NOTE | 2021-06-03 07:37 | CR ---
Indication: Follow-up pneumothorax Comparison: Single view chest June 02, 2021 Technique: Single AP view chest Findings: Stable position of right-sided thoracostomy tube. There is improving re-expansion of the right lung with overall decreased pneumothorax from comparison. There is slightly increasing pleural effusion from comparison. The left hemithorax remains clear. The cardiac silhouette is stable. The bony thorax is grossly intact. Impression: Stable position of right-sided thoracostomy tube with overall improving pneumothorax from comparison with slightly increased right-sided pleural effusion. Dictated by Alvaro Tate MD @ 06/03/2021 7:35:08 AM (Electronically Signed)
--- NOTE | 2021-06-03 08:50 | PCM.PN ---
- General Info Date of Service: 06/03/21 Admission Dx/Problem (Free Text): Right hydropneumothorax Subjective Update: 56-year-old male admitted for right sided hydropneumothorax. Patient has right- sided chest tube in place. Repeat chest x-ray this morning shows stable tube placement with improvement of pneumothorax and slight increase in effusion. Patient's pain is controlled. He reports feeling better. Patient has been doing spirometry multiple times per hour. Patient is tolerating diet. Patient has had a bowel movement yesterday. Patient is ambulating in his room. He enjoys sitting in the chair during the day. Patient denies fever, chills, chest pain, palpitations, abdominal pain, nausea, vomiting. - Review of Systems General: Denies: Fever, Chills HEENT: Denies: Headaches Pulmonary: Reports: Pleuritic Chest Pain. Denies: Cough Cardiovascular: Denies: Chest Pain, Palpitations Gastrointestinal: Denies: Abdominal Pain, Constipation Genitourinary: Denies: Dysuria Musculoskeletal: Denies: Leg Pain Neurological: Denies: Confusion - Patient Data Vitals - Most Recent: Last Vital Signs Temp 97.7 F 06/03/21 00:16 Pulse 83 06/03/21 00:16 Resp 22 H 06/03/21 00:16 BP 121/83 06/03/21 00:16 Pulse Ox 97 06/03/21 00:16 Weight - Most Recent: 208 lb 12.8 oz I&O - Last 24 Hours: Intake & Output 06/02/21 06/03/21 06/03/21 22:59 06:59 14:59 Intake Total 1000 Output Total 800 Balance 200 Lab Results Last 24 Hours: Laboratory Results - last 24 hr 06/03/21 06/03/21 Range/Units 05:57 05:57 WBC 8.78 (4.0-11.0) K/uL RBC 5.22 (4.50-5.90) M/uL Hgb 13.4 (13.0-17.0) g/dL Hct 42.9 (38.0-50.0) % MCV 82.2 (80.0-98.0) fL MCH 25.7 L (27.0-32.0) pg MCHC 31.2 (31.0-37.0) g/dL RDW Std Deviation 51.0 (28.0-62.0) fl RDW Coeff of James 17 H (11.0-15.0) % Plt Count 256 (150-400) K/uL MPV 11.10 (7.40-12.00) fL Neut % (Auto) 67.1 (48.0-80.0) % Lymph % (Auto) 18.3 (16.0-40.0) % [place] % (Auto) 12.3 (0.0-15.0) % Eos % (Auto) 2.1 (0.0-7.0) % Baso % (Auto) 0.2 (0.0-1.5) % Neut # (Auto) 5.9 H (1.4-5.7) K/uL Lymph # (Auto) 1.6 (0.6-2.4) K/uL [place] # (Auto) 1.1 H (0.0-0.8) K/uL Eos # (Auto) 0.2 (0.0-0.7) K/uL Baso # (Auto) 0.0 (0.0-0.1) K/uL Nucleated RBC % 0.0 /100WBC Nucleated RBCs # 0 K/uL Sodium 138 (136-148) mmol/L Potassium 4.1 (3.5-5.1) mmol/L Chloride 102 (98-107) mmol/L Carbon Dioxide 31.2 (21.0-32.0) mmol/L BUN 12 (7.0-18.0) mg/dL Creatinine 1.1 (0.8-1.3) mg/dL Est Cr Clr Drug Dosing 77.42 mL/min Estimated GFR (MDRD) > 60.0 ml/min Glucose 122 H (74-106) mg/dL Calcium 9.2 (8.5-10.1) mg/dL Total Bilirubin 0.5 (0.2-1.0) mg/dL AST 8 L (15-37) IU/L ALT 21 (14-63) IU/L Alkaline Phosphatase 60 (46-116) U/L Total Protein 7.3 (6.4-8.2) g/dL Albumin 2.5 L (3.4-5.0) g/dL Globulin 4.8 H (2.6-4.0) g/dL Albumin/Globulin Ratio 0.5 L (0.9-1.6) Lizandro Results Last 24 Hours: Microbiology 06/01/21 10:55 Aerobic Blood Culture - Preliminary Blood - Venous - Lab Draw NO GROWTH AFTER 1 DAY Anaerobic Blood Culture - Preliminary NO GROWTH AFTER 1 DAY 06/01/21 10:30 Aerobic Blood Culture - Preliminary Blood - Venous NO GROWTH AFTER 1 DAY Anaerobic Blood Culture - Preliminary NO GROWTH AFTER 1 DAY Med Orders - Current: Current Medications Acetaminophen (Acetaminophen 325 Mg Tab) 650 mg PO Q4H PRN PRN Reason: Pain (Mild 1-3)/fever Last Admin: 06/02/21 20:00 Dose: 650 mg Documented by: Albuterol/Ipratropium (Albuterol/Ipratropium 3.0-0.5 Mg/3 Ml Neb Soln) 3 ml NEB Q4HRRT PRN PRN Reason: Shortness Of Breath/wheezing Last Admin: 06/02/21 17:06 Dose: 3 ml Documented by: Piperacillin Sod/Tazobactam (Sod 3.375 gm/ Sodium Chloride) 50 mls @ 100 mls/hr IV Q6H [facility] Last Admin: 06/02/21 23:15 Dose: 100 mls/hr Documented by: Azithromycin 500 mg/ Sodium (Chloride) 250 mls @ 250 mls/hr IV Q24H [facility] Last Admin: 06/02/21 16:35 Dose: 250 mls/hr Documented by: Ibuprofen (Ibuprofen 200 Mg Tab) 200 mg PO Q6H PRN PRN Reason: Pain (mild 1-3) Losartan Potassium (Losartan 50 Mg Tab) 25 mg PO DAILY [facility] Last Admin: 06/02/21 09:43 Dose: 25 mg Documented by: Morphine Sulfate (Morphine 2 Mg/Ml Syringe) 2 mg IVPUSH Q4H PRN PRN Reason: Pain (severe 7-10) Last Admin: 06/02/21 18:14 Dose: 2 mg Documented by: Ondansetron HCl (Ondansetron 4 Mg/2 Ml Sdv) 4 mg IVPUSH Q4H PRN PRN Reason: Nausea Polyethylene Glycol (Polyethylene Glycol 3350 Powder 17 Gm Packet) 17 gm PO DAILY PRN PRN Reason: Constipation Discontinued Medications Hydromorphone HCl (Hydromorphone 1 Mg/Ml Syringe) 0.5 mg IVPUSH ONETIME ONE Stop: 06/01/21 13:56 Last Admin: 06/01/21 14:07 Dose: 0.5 mg Documented by: Piperacillin Sod/Tazobactam (Sod 3.375 gm/ Sodium Chloride) 50 mls @ 100 mls/hr IV ONETIME ONE Stop: 06/01/21 11:00 Last Admin: 06/01/21 11:00 Dose: 100 mls/hr Documented by: Iopamidol (Iopamidol 755 Mg/Ml 500 Ml Multipack Bottle) 75 ml IVPUSH ONETIME STA Stop: 06/01/21 11:38 Last Admin: 06/01/21 11:37 Dose: 75 ml Documented by: Lidocaine HCl (Lidocaine 1% 10 Ml Mdv) 20 ml INJECT ONETIME ONE Stop: 06/01/21 13:23 Last Admin: 06/01/21 14:05 Dose: Not Given Documented by: Lidocaine HCl (Lidocaine 1% 5 Ml Sdv) Confirm Administered Dose 20 ml .ROUTE .STK-MED ONE Stop: 06/01/21 13:27 Last Admin: 06/01/21 14:05 Dose: Not Given Documented by: Lidocaine HCl (Lidocaine 1% 10 Ml Mdv) 20 ml INJECT ONETIME ONE Stop: 06/01/21 14:02 Last Admin: 06/01/21 14:05 Dose: Not Given Documented by: Lidocaine HCl (Lidocaine 1% 5 Ml Sdv) 20 ml INJECT ONETIME ONE Stop: 06/01/21 14:04 Last Admin: 06/01/21 14:04 Dose: 15 ml Documented by: Morphine Sulfate (Morphine 2 Mg/Ml Syringe) 6 mg IVPUSH NOW STA Stop: 06/01/21 13:56 Last Admin: 06/01/21 14:05 Dose: Not Given Documented by: - Exam Quality Assessment: Supplemental Oxygen General: Alert, Oriented, Cooperative, No Acute Distress HEENT: Pupils Equal, Pupils Reactive Neck: Supple Lungs: Other (Decreased breath sounds on the right. Left lung is clear.) Cardiovascular: Regular Rate, Regular Rhythm GI/Abdominal Exam: Normal Bowel Sounds, Soft, Non-Tender Extremities: Normal Inspection Peripheral Pulses: 2+: Dorsalis Pedis (L), Dorsalis Pedis (R) Skin: Warm, Dry, Intact Wound/Incisions: Dressing Dry and Intact Neurological: No New Focal Deficit - Patient Data Lab Results Last 24 hrs: Laboratory Results - last 24 hr 06/03/21 06/03/21 Range/Units 05:57 05:57 WBC 8.78 (4.0-11.0) K/uL RBC 5.22 (4.50-5.90) M/uL Hgb 13.4 (13.0-17.0) g/dL Hct 42.9 (38.0-50.0) % MCV 82.2 (80.0-98.0) fL MCH 25.7 L (27.0-32.0) pg MCHC 31.2 (31.0-37.0) g/dL RDW Std Deviation 51.0 (28.0-62.0) fl RDW Coeff of James 17 H (11.0-15.0) % Plt Count 256 (150-400) K/uL MPV 11.10 (7.40-12.00) fL Neut % (Auto) 67.1 (48.0-80.0) % Lymph % (Auto) 18.3 (16.0-40.0) % [place] % (Auto) 12.3 (0.0-15.0) % Eos % (Auto) 2.1 (0.0-7.0) % Baso % (Auto) 0.2 (0.0-1.5) % Neut # (Auto) 5.9 H (1.4-5.7) K/uL Lymph # (Auto) 1.6 (0.6-2.4) K/uL [place] # (Auto) 1.1 H (0.0-0.8) K/uL Eos # (Auto) 0.2 (0.0-0.7) K/uL Baso # (Auto) 0.0 (0.0-0.1) K/uL Nucleated RBC % 0.0 /100WBC Nucleated RBCs # 0 K/uL Sodium 138 (136-148) mmol/L Potassium 4.1 (3.5-5.1) mmol/L Chloride 102 (98-107) mmol/L Carbon Dioxide 31.2 (21.0-32.0) mmol/L BUN 12 (7.0-18.0) mg/dL Creatinine 1.1 (0.8-1.3) mg/dL Est Cr Clr Drug Dosing 77.42 mL/min Estimated GFR (MDRD) > 60.0 ml/min Glucose 122 H (74-106) mg/dL Calcium 9.2 (8.5-10.1) mg/dL Total Bilirubin 0.5 (0.2-1.0) mg/dL AST 8 L (15-37) IU/L ALT 21 (14-63) IU/L Alkaline Phosphatase 60 (46-116) U/L Total Protein 7.3 (6.4-8.2) g/dL Albumin 2.5 L (3.4-5.0) g/dL Globulin 4.8 H (2.6-4.0) g/dL Albumin/Globulin Ratio 0.5 L (0.9-1.6) Result Diagrams: 06/03/21 05:57 06/03/21 05:57 Lizandro Results Last 24 hrs: Microbiology 06/01/21 10:55 Aerobic Blood Culture - Preliminary Blood - Venous - Lab Draw NO GROWTH AFTER 1 DAY Anaerobic Blood Culture - Preliminary NO GROWTH AFTER 1 DAY 06/01/21 10:30 Aerobic Blood Culture - Preliminary Blood - Venous NO GROWTH AFTER 1 DAY Anaerobic Blood Culture - Preliminary NO GROWTH AFTER 1 DAY Sepsis Event Note - Evaluation Sepsis Screening Result: No Definite Risk - Focused Exam Vital Signs: Vital Signs Temp Pulse Resp BP Pulse Ox 06/03/21 00:16 97.7 F 83 22 H 121/83 97 - Problem List & Annotations (1) Hydropneumothorax SNOMED Code(s): 10971457 Code(s): J94.8 - OTHER SPECIFIED PLEURAL CONDITIONS Status: Acute Current Visit: Yes - Problem List Review Problem List Initiated/Reviewed/Updated: Yes - My Orders Last 24 Hours: My Active Orders 06/02/21 09:00 Losartan [Cozaar] 25 mg PO DAILY 06/04/21 05:11 CBC WITH AUTO DIFF [HEME] DAILY COMPREHENSIVE METABOLIC PN,CMP [CHEM] DAILY 06/05/21 05:11 CBC WITH AUTO DIFF [HEME] DAILY COMPREHENSIVE METABOLIC PN,CMP [CHEM] DAILY 06/06/21 05:11 CBC WITH AUTO DIFF [HEME] DAILY COMPREHENSIVE METABOLIC PN,CMP [CHEM] DAILY 06/07/21 05:11 CBC WITH AUTO DIFF [HEME] DAILY COMPREHENSIVE METABOLIC PN,CMP [CHEM] DAILY 06/08/21 05:11 CBC WITH AUTO DIFF [HEME] DAILY COMPREHENSIVE METABOLIC PN,CMP [CHEM] DAILY 06/09/21 05:11 CBC WITH AUTO DIFF [HEME] DAILY COMPREHENSIVE METABOLIC PN,CMP [CHEM] DAILY - Plan Plan:: 56-year-old male with right-sided hydropneumothorax. -Surgery is following. Right-sided chest in place. Clean dry and intact. Chest x-ray this morning shows improving pneumothorax with slight increase in right-sided effusion. Fluid Gram stain pending. As per general surgery recommendations, we will continue suction for now. Repeat another chest x-ray in the morning. Morphine for pain. We will start the patient on 100% oxygen mask. -Continue IV Azithromycin and Zosyn. Follow daily CBC. -Incentive spirometry. Duo nebs. -Continue home medications Losartan 25 mg daily.
[2021-06-03] MEDS: Piperacillin/Tazobactam 3.375 GM in Sodium Chloride 0.9% 50 ML IV SCH ×4 (10:12→22:08)
[2021-06-03] MEDS: Losartan 50 MG Tab PO SCH (10:29)
--- NOTE | 2021-06-03 10:52 | PCM.CONS ---
H&P History of Present Illness - General Admit Problem/Dx: Right hydropneumothorax Right Chest Pain Score (Numeric/FACES): 4 - Related Data Allergies/Adverse Reactions: Allergies Allergy/AdvReac Type Severity Reaction Status Date / Time No Known Allergies Allergy Verified 06/01/21 20:03 Home Medications: Home Meds Losartan [Cozaar] 1 tab PO DAILY 06/01/21 [History] Past Medical History - Past Health History Medical/Surgical History: Denies Medical/Surgical History HEENT History: Reports: None Cardiovascular History: Reports: None, Hypertension Other Cardiovascular History: A few days ago newly diagnosed with hypertention and mediated for it. Respiratory History: Reports: None Gastrointestinal History: Reports: None Genitourinary History: Reports: None Musculoskeletal History: Reports: None Neurological History: Reports: None Psychiatric History: Reports: None Endocrine/Metabolic History: Reports: None Insulin Pump Model and General Farm Hand: None Hematologic History: Reports: None Immunologic History: Reports: None Oncologic (Cancer) History: Reports: None Dermatologic History: Reports: None - Infectious Disease History Infectious Disease History: Reports: None - Past Surgical History Head Surgeries/Procedures: Reports: None HEENT Surgical History: Reports: None Cardiovascular Surgical History: Reports: None Social & Family History - Family History Family Medical History: No Pertinent Family History - Tobacco Use Tobacco Use Status *Q: Never Tobacco User Second Hand Smoke Exposure: No - Caffeine Use Caffeine Use: Reports: None - Recreational Drug Use Recreational Drug Use: No Exam - Vital Signs Vital Signs: Last Vital Signs Temp 35.6 C L 06/03/21 08:00 Pulse 87 06/03/21 08:00 Resp 20 06/03/21 08:00 BP 135/75 06/03/21 10:29 Pulse Ox 97 06/03/21 08:00 Weight: 94.71 kg - Patient Data Lab Results Last 24 hrs: Laboratory Results - last 24 hr 06/03/21 06/03/21 Range/Units 05:57 05:57 WBC 8.78 (4.0-11.0) K/uL RBC 5.22 (4.50-5.90) M/uL Hgb 13.4 (13.0-17.0) g/dL Hct 42.9 (38.0-50.0) % MCV 82.2 (80.0-98.0) fL MCH 25.7 L (27.0-32.0) pg MCHC 31.2 (31.0-37.0) g/dL RDW Std Deviation 51.0 (28.0-62.0) fl RDW Coeff of James 17 H (11.0-15.0) % Plt Count 256 (150-400) K/uL MPV 11.10 (7.40-12.00) fL Neut % (Auto) 67.1 (48.0-80.0) % Lymph % (Auto) 18.3 (16.0-40.0) % [place] % (Auto) 12.3 (0.0-15.0) % Eos % (Auto) 2.1 (0.0-7.0) % Baso % (Auto) 0.2 (0.0-1.5) % Neut # (Auto) 5.9 H (1.4-5.7) K/uL Lymph # (Auto) 1.6 (0.6-2.4) K/uL [place] # (Auto) 1.1 H (0.0-0.8) K/uL Eos # (Auto) 0.2 (0.0-0.7) K/uL Baso # (Auto) 0.0 (0.0-0.1) K/uL Nucleated RBC % 0.0 /100WBC Nucleated RBCs # 0 K/uL Sodium 138 (136-148) mmol/L Potassium 4.1 (3.5-5.1) mmol/L Chloride 102 (98-107) mmol/L Carbon Dioxide 31.2 (21.0-32.0) mmol/L BUN 12 (7.0-18.0) mg/dL Creatinine 1.1 (0.8-1.3) mg/dL Est Cr Clr Drug Dosing 77.42 mL/min Estimated GFR (MDRD) > 60.0 ml/min Glucose 122 H (74-106) mg/dL Calcium 9.2 (8.5-10.1) mg/dL Total Bilirubin 0.5 (0.2-1.0) mg/dL AST 8 L (15-37) IU/L ALT 21 (14-63) IU/L Alkaline Phosphatase 60 (46-116) U/L Total Protein 7.3 (6.4-8.2) g/dL Albumin 2.5 L (3.4-5.0) g/dL Globulin 4.8 H (2.6-4.0) g/dL Albumin/Globulin Ratio 0.5 L (0.9-1.6) Result Diagrams: 06/03/21 05:57 06/03/21 05:57 Lizandro Results Last 24 hrs: Microbiology 06/01/21 10:30 Aerobic Blood Culture - Preliminary Blood - Venous NO GROWTH AFTER 2 DAYS Anaerobic Blood Culture - Preliminary NO GROWTH AFTER 2 DAYS 06/01/21 10:55 Aerobic Blood Culture - Preliminary Blood - Venous - Lab Draw NO GROWTH AFTER 1 DAY Anaerobic Blood Culture - Preliminary NO GROWTH AFTER 1 DAY Sepsis Event Note - Evaluation Sepsis Screening Result: No Definite Risk - Focused Exam Vital Signs: Vital Signs Temp Pulse Resp BP BP Pulse Ox 06/03/21 10:29 135/75 06/03/21 08:00 35.6 C L 87 20 135/75 97 06/03/21 00:16 36.5 C 83 22 H 121/83 97 Consult PN Assessment/Plan Procedures: Procedures ASSAY OF FOLIC ACID SERUM (03/12/21) ASSAY OF LACTIC ACID (03/12/21) ASSAY OF LIPASE (03/12/21) ASSAY OF MAGNESIUM (03/12/21) ASSAY OF PHOSPHORUS (03/12/21) ASSAY OF TROPONIN QUANT (03/12/21) ASSAY THYROID STIM HORMONE (03/12/21) BLOOD TYPING SEROLOGIC ABO (03/12/21) BLOOD TYPING SEROLOGIC RH(D) (03/12/21) COMPLETE CBC AUTOMATED (03/12/21) COMPLETE CBC W/AUTO DIFF WBC (03/30/21) COMPREHEN METABOLIC PANEL (03/30/21) CRITICAL CARE FIRST HOUR (03/12/21) DRUG TEST PRSMV CHEM ANLYZR (03/12/21) DRUG TEST PRSMV DIR OPT OBS (03/12/21) ELECTROCARDIOGRAM TRACING (03/30/21) EMERGENCY DEPT VISIT (03/31/21) GLYCOSYLATED HEMOGLOBIN TEST (03/12/21) HEMATOCRIT (03/12/21) HEMOGLOBIN (03/12/21) HYDRATE IV INFUSION ADD-ON (03/12/21) LIPID PANEL (03/12/21) PROTHROMBIN TIME (03/30/21) RBC ANTIBODY SCREEN (03/12/21) ROUTINE VENIPUNCTURE (03/30/21) SARS-COV-2 COVID-19 AMP PRB (03/31/21) THER/PROPH/DIAG INJ IV PUSH (03/12/21) THROMBOPLASTIN TIME PARTIAL (03/12/21) TX/PRO/DX INJ NEW DRUG ADDON (03/12/21) TX/PRO/DX INJ SAME DRUG ORACLE [employer] DEVELOPER (03/12/21) VITAMIN B-12 (03/12/21) VITAMIN D 25 HYDROXY (03/12/21) X-RAY EXAM CHEST 1 VIEW (03/30/21) (1) Hydropneumothorax SNOMED Code(s): 08126932 Code(s): J94.8 - OTHER SPECIFIED PLEURAL CONDITIONS Current Visit: Yes My Orders Last 24 Hours: My Active Orders 06/02/21 16:32 Communication Order [RC] ROUTINE Oxygen Therapy [RC] ASDIRECTED
--- NOTE | 2021-06-03 14:47 | PCM.CONSN ---
- General Info Date of Service: 06/03/21 Subjective Update: Patient feels like he is breathing is getting better. He is using his incentive monitor feels like he is getting deeper breaths. No fevers or chills. His chest pain is better as well. - Review of Systems General: Reports: No Symptoms HEENT: Reports: No Symptoms Pulmonary: Reports: No Symptoms Cardiovascular: Reports: No Symptoms Gastrointestinal: Reports: No Symptoms - Patient Data Vitals - Most Recent: Last Vital Signs Temp 35.7 C L 06/03/21 12:00 Pulse 106 H 06/03/21 12:00 Resp 22 H 06/03/21 12:00 BP 131/76 06/03/21 12:00 Pulse Ox 96 06/03/21 12:00 Weight - Most Recent: 94.71 kg I&O - Last 24 Hours: Intake & Output 06/02/21 06/03/21 06/03/21 22:59 06:59 14:59 Intake Total 1000 Output Total 800 Balance 200 Lab Results Last 24 Hours: Laboratory Results - last 24 hr 06/03/21 06/03/21 Range/Units 05:57 05:57 WBC 8.78 (4.0-11.0) K/uL RBC 5.22 (4.50-5.90) M/uL Hgb 13.4 (13.0-17.0) g/dL Hct 42.9 (38.0-50.0) % MCV 82.2 (80.0-98.0) fL MCH 25.7 L (27.0-32.0) pg MCHC 31.2 (31.0-37.0) g/dL RDW Std Deviation 51.0 (28.0-62.0) fl RDW Coeff of James 17 H (11.0-15.0) % Plt Count 256 (150-400) K/uL MPV 11.10 (7.40-12.00) fL Neut % (Auto) 67.1 (48.0-80.0) % Lymph % (Auto) 18.3 (16.0-40.0) % [place] % (Auto) 12.3 (0.0-15.0) % Eos % (Auto) 2.1 (0.0-7.0) % Baso % (Auto) 0.2 (0.0-1.5) % Neut # (Auto) 5.9 H (1.4-5.7) K/uL Lymph # (Auto) 1.6 (0.6-2.4) K/uL [place] # (Auto) 1.1 H (0.0-0.8) K/uL Eos # (Auto) 0.2 (0.0-0.7) K/uL Baso # (Auto) 0.0 (0.0-0.1) K/uL Nucleated RBC % 0.0 /100WBC Nucleated RBCs # 0 K/uL Sodium 138 (136-148) mmol/L Potassium 4.1 (3.5-5.1) mmol/L Chloride 102 (98-107) mmol/L Carbon Dioxide 31.2 (21.0-32.0) mmol/L BUN 12 (7.0-18.0) mg/dL Creatinine 1.1 (0.8-1.3) mg/dL Est Cr Clr Drug Dosing 77.42 mL/min Estimated GFR (MDRD) > 60.0 ml/min Glucose 122 H (74-106) mg/dL Calcium 9.2 (8.5-10.1) mg/dL Total Bilirubin 0.5 (0.2-1.0) mg/dL AST 8 L (15-37) IU/L ALT 21 (14-63) IU/L Alkaline Phosphatase 60 (46-116) U/L Total Protein 7.3 (6.4-8.2) g/dL Albumin 2.5 L (3.4-5.0) g/dL Globulin 4.8 H (2.6-4.0) g/dL Albumin/Globulin Ratio 0.5 L (0.9-1.6) Lizandro Results Last 24 Hours: Microbiology 06/01/21 14:00 Gram Stain - Final Pleural Fluid 06/01/21 10:55 Aerobic Blood Culture - Preliminary Blood - Venous - Lab Draw NO GROWTH AFTER 2 DAYS Anaerobic Blood Culture - Preliminary NO GROWTH AFTER 2 DAYS 06/01/21 10:30 Aerobic Blood Culture - Preliminary Blood - Venous NO GROWTH AFTER 2 DAYS Anaerobic Blood Culture - Preliminary NO GROWTH AFTER 2 DAYS Med Orders - Current: Current Medications Acetaminophen (Acetaminophen 325 Mg Tab) 650 mg PO Q4H PRN PRN Reason: Pain (Mild 1-3)/fever Last Admin: 06/02/21 20:00 Dose: 650 mg Documented by: Albuterol/Ipratropium (Albuterol/Ipratropium 3.0-0.5 Mg/3 Ml Neb Soln) 3 ml NEB Q4HRRT PRN PRN Reason: Shortness Of Breath/wheezing Last Admin: 06/02/21 17:06 Dose: 3 ml Documented by: Piperacillin Sod/Tazobactam (Sod 3.375 gm/ Sodium Chloride) 50 mls @ 100 mls/hr IV Q6H [facility] Last Admin: 06/03/21 10:38 Dose: 100 mls/hr Documented by: Azithromycin 500 mg/ Sodium (Chloride) 250 mls @ 250 mls/hr IV Q24H [facility] Last Admin: 06/02/21 16:35 Dose: 250 mls/hr Documented by: Ibuprofen (Ibuprofen 200 Mg Tab) 200 mg PO Q6H PRN PRN Reason: Pain (mild 1-3) Losartan Potassium (Losartan 50 Mg Tab) 25 mg PO DAILY [facility] Last Admin: 06/03/21 10:29 Dose: 25 mg Documented by: Morphine Sulfate (Morphine 2 Mg/Ml Syringe) 2 mg IVPUSH Q4H PRN PRN Reason: Pain (severe 7-10) Last Admin: 06/02/21 18:14 Dose: 2 mg Documented by: Ondansetron HCl (Ondansetron 4 Mg/2 Ml Sdv) 4 mg IVPUSH Q4H PRN PRN Reason: Nausea Polyethylene Glycol (Polyethylene Glycol 3350 Powder 17 Gm Packet) 17 gm PO DAILY PRN PRN Reason: Constipation Discontinued Medications Hydromorphone HCl (Hydromorphone 1 Mg/Ml Syringe) 0.5 mg IVPUSH ONETIME ONE Stop: 06/01/21 13:56 Last Admin: 06/01/21 14:07 Dose: 0.5 mg Documented by: Piperacillin Sod/Tazobactam (Sod 3.375 gm/ Sodium Chloride) 50 mls @ 100 mls/hr IV ONETIME ONE Stop: 06/01/21 11:00 Last Admin: 06/01/21 11:00 Dose: 100 mls/hr Documented by: Iopamidol (Iopamidol 755 Mg/Ml 500 Ml Multipack Bottle) 75 ml IVPUSH ONETIME STA Stop: 06/01/21 11:38 Last Admin: 06/01/21 11:37 Dose: 75 ml Documented by: Lidocaine HCl (Lidocaine 1% 10 Ml Mdv) 20 ml INJECT ONETIME ONE Stop: 06/01/21 13:23 Last Admin: 06/01/21 14:05 Dose: Not Given Documented by: Lidocaine HCl (Lidocaine 1% 5 Ml Sdv) Confirm Administered Dose 20 ml .ROUTE .STK-MED ONE Stop: 06/01/21 13:27 Last Admin: 06/01/21 14:05 Dose: Not Given Documented by: Lidocaine HCl (Lidocaine 1% 10 Ml Mdv) 20 ml INJECT ONETIME ONE Stop: 06/01/21 14:02 Last Admin: 06/01/21 14:05 Dose: Not Given Documented by: Lidocaine HCl (Lidocaine 1% 5 Ml Sdv) 20 ml INJECT ONETIME ONE Stop: 06/01/21 14:04 Last Admin: 06/01/21 14:04 Dose: 15 ml Documented by: Morphine Sulfate (Morphine 2 Mg/Ml Syringe) 6 mg IVPUSH NOW STA Stop: 06/01/21 13:56 Last Admin: 06/01/21 14:05 Dose: Not Given Documented by: - Exam General: Alert, Oriented HEENT: Pupils Equal, Pupils Reactive Lungs: Other (The patient's lung sounds on the right are much clearer today. I do not hear any wheezing or crackles. Left side is clear.) Cardiovascular: Regular Rate GI/Abdominal Exam: Soft, Non-Tender Sepsis Event Note - Evaluation Sepsis Screening Result: No Definite Risk - Focused Exam Vital Signs: Vital Signs Temp Pulse Resp BP BP Pulse Ox 06/03/21 12:00 35.7 C L 106 H 22 H 131/76 96 06/03/21 10:29 135/75 06/03/21 08:00 35.6 C L 87 20 135/75 97 Consult PN Assessment/Plan Procedures: Procedures ASSAY OF FOLIC ACID SERUM (03/12/21) ASSAY OF LACTIC ACID (03/12/21) ASSAY OF LIPASE (03/12/21) ASSAY OF MAGNESIUM (03/12/21) ASSAY OF PHOSPHORUS (03/12/21) ASSAY OF TROPONIN QUANT (03/12/21) ASSAY THYROID STIM HORMONE (03/12/21) BLOOD TYPING SEROLOGIC ABO (03/12/21) BLOOD TYPING SEROLOGIC RH(D) (03/12/21) COMPLETE CBC AUTOMATED (03/12/21) COMPLETE CBC W/AUTO DIFF WBC (03/30/21) COMPREHEN METABOLIC PANEL (03/30/21) CRITICAL CARE FIRST HOUR (03/12/21) DRUG TEST PRSMV CHEM ANLYZR (03/12/21) DRUG TEST PRSMV DIR OPT OBS (03/12/21) ELECTROCARDIOGRAM TRACING (03/30/21) EMERGENCY DEPT VISIT (03/31/21) GLYCOSYLATED HEMOGLOBIN TEST (03/12/21) HEMATOCRIT (03/12/21) HEMOGLOBIN (03/12/21) HYDRATE IV INFUSION ADD-ON (03/12/21) LIPID PANEL (03/12/21) PROTHROMBIN TIME (03/30/21) RBC ANTIBODY SCREEN (03/12/21) ROUTINE VENIPUNCTURE (03/30/21) SARS-COV-2 COVID-19 AMP PRB (03/31/21) THER/PROPH/DIAG INJ IV PUSH (03/12/21) THROMBOPLASTIN TIME PARTIAL (03/12/21) TX/PRO/DX INJ NEW DRUG ADDON (03/12/21) TX/PRO/DX INJ SAME DRUG BLOCKER HEATED METAL FORMS (03/12/21) VITAMIN B-12 (03/12/21) VITAMIN D 25 HYDROXY (03/12/21) X-RAY EXAM CHEST 1 VIEW (03/30/21) (1) Hydropneumothorax SNOMED Code(s): 15979355 Code(s): J94.8 - OTHER SPECIFIED PLEURAL CONDITIONS Current Visit: Yes Problem List Initiated/Reviewed/Updated: Yes My Orders Last 24 Hours: My Active Orders 06/02/21 16:32 Communication Order [RC] ROUTINE Oxygen Therapy [RC] ASDIRECTED Plan: The patient's chest x-ray this morning showed improvement again. He had 400 cc of serous output. Still awaiting his culture results. I saw him on small release of air with coughing but this is an improvement. He still has some residual pneumothorax on chest x-ray. I agree with the medicine team's plan of 100% oxygen by facemask. I encouraged the patient to continue using incentive spirometer and require good pulmonary toilet. Repeat chest x-ray this morning. As long as he continues to improve we will not need transfer or thoracic surgery.
[2021-06-03] MEDS: Azithromycin 500 MG in Sodium Chloride 0.9% 250 ML IV SCH (15:31)
[2021-06-03] MEDS: Morphine 2 MG/ML SYRINGE IVPUSH PRN (17:55)
[2021-06-03] MEDS: Acetaminophen 325 MG Tab PO PRN (18:46)
[2021-06-04] MEDS: Piperacillin/Tazobactam 3.375 GM in Sodium Chloride 0.9% 50 ML IV SCH ×3 (04:32→18:03)
--- NOTE | 2021-06-04 07:10 | CR ---
Indication: Pneumothorax Comparison: Single-view chest June 03, 2021 Technique: Single AP view chest Findings: Stable appearance of right-sided thoracostomy tube. Redemonstration of mild right-sided pleural effusion with overall no significant pneumothorax identified. The left hemithorax remains clear. The cardiac silhouette is mildly prominent. The bony thorax is grossly intact. Impression: Stable right-sided thoracostomy tube. Overall, no significant change from comparison. No significant reaccumulation of pneumothorax. Dictated by Alvaro Tate MD @ 06/04/2021 7:08:41 AM (Electronically Signed)
[2021-06-04 07:11] LABS: BLOOD UREA NITROGEN,BUN 12 mg/dL (7.0-18.0); CARBON DIOXIDE,CO2 30.2 mmol/L (21.0-32.0); CHLORIDE,CL 103 mmol/L (98-107); GLUCOSE RANDOM 90 mg/dL (74-106); POTASSIUM,K 3.9 mmol/L (3.5-5.1); SODIUM,NA 138 mmol/L (136-148)
--- NOTE | 2021-06-04 07:49 | PCM.PN ---
- General Info Date of Service: 06/04/21 Subjective Update: Patient was started on 100% oxygen facemask yesterday. This morning patient states his breathing is much improved and it is becoming easier to take deep breaths. Patient continues to use incentive spirometry. CXR this morning shows no significant change from yesterday. Redemonstration of mild right sided pleural effusion with overall no significant pneumothorax identified. Patient denies fever, chills, palpitations, headaches, lightheadedness. - Review of Systems General: Denies: Fever, Chills HEENT: Denies: Headaches Pulmonary: Denies: Cough, Sputum Cardiovascular: Denies: Palpitations, Orthopnea, Edema Gastrointestinal: Denies: Abdominal Pain, Nausea, Vomiting Genitourinary: Denies: Dysuria Musculoskeletal: Denies: Leg Pain Skin: Denies: Cyanosis Neurological: Denies: Confusion - Patient Data Vitals - Most Recent: Last Vital Signs Temp 97.0 F 06/04/21 04:00 Pulse 82 06/04/21 04:00 Resp 16 06/04/21 04:00 BP 151/80 H 06/04/21 04:00 Pulse Ox 99 06/04/21 04:00 Weight - Most Recent: 208 lb 12.8 oz I&O - Last 24 Hours: Intake & Output 06/03/21 06/04/21 06/04/21 22:59 06:59 14:59 Intake Total 1000 1200 Output Total 800 750 Balance 200 450 Lab Results Last 24 Hours: Laboratory Results - last 24 hr 06/03/21 06/04/21 Range/Units 05:57 05:42 Sodium 138 138 (136-148) mmol/L Potassium 4.1 3.9 (3.5-5.1) mmol/L Chloride 102 103 (98-107) mmol/L Carbon Dioxide 31.2 30.2 (21.0-32.0) mmol/L BUN 12 12 (7.0-18.0) mg/dL Creatinine 1.1 1.0 (0.8-1.3) mg/dL Est Cr Clr Drug Dosing 77.42 85.17 mL/min Estimated GFR (MDRD) > 60.0 > 60.0 ml/min Glucose 122 H 90 (74-106) mg/dL Calcium 9.2 9.2 (8.5-10.1) mg/dL Total Bilirubin 0.5 0.5 (0.2-1.0) mg/dL AST 8 L 7 L (15-37) IU/L ALT 21 21 (14-63) IU/L Alkaline Phosphatase 60 52 (46-116) U/L Total Protein 7.3 7.1 (6.4-8.2) g/dL Albumin 2.5 L 2.5 L (3.4-5.0) g/dL Globulin 4.8 H 4.6 H (2.6-4.0) g/dL Albumin/Globulin Ratio 0.5 L 0.5 L (0.9-1.6) Lizandro Results Last 24 Hours: Microbiology 06/01/21 14:00 Gram Stain - Final Pleural Fluid 06/01/21 10:55 Aerobic Blood Culture - Preliminary Blood - Venous - Lab Draw NO GROWTH AFTER 2 DAYS Anaerobic Blood Culture - Preliminary NO GROWTH AFTER 2 DAYS 06/01/21 10:30 Aerobic Blood Culture - Preliminary Blood - Venous NO GROWTH AFTER 2 DAYS Anaerobic Blood Culture - Preliminary NO GROWTH AFTER 2 DAYS Med Orders - Current: Current Medications Acetaminophen (Acetaminophen 325 Mg Tab) 650 mg PO Q4H PRN PRN Reason: Pain (Mild 1-3)/fever Last Admin: 06/03/21 18:46 Dose: 650 mg Documented by: Albuterol/Ipratropium (Albuterol/Ipratropium 3.0-0.5 Mg/3 Ml Neb Soln) 3 ml NEB Q4HRRT PRN PRN Reason: Shortness Of Breath/wheezing Last Admin: 06/02/21 17:06 Dose: 3 ml Documented by: Piperacillin Sod/Tazobactam (Sod 3.375 gm/ Sodium Chloride) 50 mls @ 100 mls/hr IV Q6H [facility] Last Admin: 06/04/21 04:32 Dose: 100 mls/hr Documented by: Azithromycin 500 mg/ Sodium (Chloride) 250 mls @ 250 mls/hr IV Q24H [facility] Last Admin: 06/03/21 15:31 Dose: 250 mls/hr Documented by: Ibuprofen (Ibuprofen 200 Mg Tab) 200 mg PO Q6H PRN PRN Reason: Pain (mild 1-3) Losartan Potassium (Losartan 50 Mg Tab) 25 mg PO DAILY [facility] Last Admin: 06/03/21 10:29 Dose: 25 mg Documented by: Morphine Sulfate (Morphine 2 Mg/Ml Syringe) 2 mg IVPUSH Q4H PRN PRN Reason: Pain (severe 7-10) Last Admin: 06/03/21 17:55 Dose: 2 mg Documented by: Ondansetron HCl (Ondansetron 4 Mg/2 Ml Sdv) 4 mg IVPUSH Q4H PRN PRN Reason: Nausea Polyethylene Glycol (Polyethylene Glycol 3350 Powder 17 Gm Packet) 17 gm PO DAILY PRN PRN Reason: Constipation Discontinued Medications Hydromorphone HCl (Hydromorphone 1 Mg/Ml Syringe) 0.5 mg IVPUSH ONETIME ONE Stop: 06/01/21 13:56 Last Admin: 06/01/21 14:07 Dose: 0.5 mg Documented by: Piperacillin Sod/Tazobactam (Sod 3.375 gm/ Sodium Chloride) 50 mls @ 100 mls/hr IV ONETIME ONE Stop: 06/01/21 11:00 Last Admin: 06/01/21 11:00 Dose: 100 mls/hr Documented by: Iopamidol (Iopamidol 755 Mg/Ml 500 Ml Multipack Bottle) 75 ml IVPUSH ONETIME STA Stop: 06/01/21 11:38 Last Admin: 06/01/21 11:37 Dose: 75 ml Documented by: Lidocaine HCl (Lidocaine 1% 10 Ml Mdv) 20 ml INJECT ONETIME ONE Stop: 06/01/21 13:23 Last Admin: 06/01/21 14:05 Dose: Not Given Documented by: Lidocaine HCl (Lidocaine 1% 5 Ml Sdv) Confirm Administered Dose 20 ml .ROUTE .STK-MED ONE Stop: 06/01/21 13:27 Last Admin: 06/01/21 14:05 Dose: Not Given Documented by: Lidocaine HCl (Lidocaine 1% 10 Ml Mdv) 20 ml INJECT ONETIME ONE Stop: 06/01/21 14:02 Last Admin: 06/01/21 14:05 Dose: Not Given Documented by: Lidocaine HCl (Lidocaine 1% 5 Ml Sdv) 20 ml INJECT ONETIME ONE Stop: 06/01/21 14:04 Last Admin: 06/01/21 14:04 Dose: 15 ml Documented by: Morphine Sulfate (Morphine 2 Mg/Ml Syringe) 6 mg IVPUSH NOW STA Stop: 06/01/21 13:56 Last Admin: 06/01/21 14:05 Dose: Not Given Documented by: - Exam General: Alert, Oriented HEENT: Pupils Equal, Pupils Reactive Neck: Supple Lungs: Other (Decreased breath sounds on the right. Left lung is clear.) Cardiovascular: Regular Rate, Regular Rhythm GI/Abdominal Exam: Normal Bowel Sounds, Soft, Non-Tender Extremities: Normal Inspection, Normal Range of Motion, Non-Tender, No Pedal Ed jason Peripheral Pulses: 2+: Dorsalis Pedis (L), Dorsalis Pedis (R) Wound/Incisions: Healing Well, Dressing Dry and Intact, No Drainage Neurological: No New Focal Deficit - Patient Data Lab Results Last 24 hrs: Laboratory Results - last 24 hr 06/03/21 06/04/21 Range/Units 05:57 05:42 Sodium 138 138 (136-148) mmol/L Potassium 4.1 3.9 (3.5-5.1) mmol/L Chloride 102 103 (98-107) mmol/L Carbon Dioxide 31.2 30.2 (21.0-32.0) mmol/L BUN 12 12 (7.0-18.0) mg/dL Creatinine 1.1 1.0 (0.8-1.3) mg/dL Est Cr Clr Drug Dosing 77.42 85.17 mL/min Estimated GFR (MDRD) > 60.0 > 60.0 ml/min Glucose 122 H 90 (74-106) mg/dL Calcium 9.2 9.2 (8.5-10.1) mg/dL Total Bilirubin 0.5 0.5 (0.2-1.0) mg/dL AST 8 L 7 L (15-37) IU/L ALT 21 21 (14-63) IU/L Alkaline Phosphatase 60 52 (46-116) U/L Total Protein 7.3 7.1 (6.4-8.2) g/dL Albumin 2.5 L 2.5 L (3.4-5.0) g/dL Globulin 4.8 H 4.6 H (2.6-4.0) g/dL Albumin/Globulin Ratio 0.5 L 0.5 L (0.9-1.6) Result Diagrams: 06/04/21 05:42 06/04/21 05:42 Lizandro Results Last 24 hrs: Microbiology 06/01/21 14:00 Gram Stain - Final Pleural Fluid 06/01/21 10:55 Aerobic Blood Culture - Preliminary Blood - Venous - Lab Draw NO GROWTH AFTER 2 DAYS Anaerobic Blood Culture - Preliminary NO GROWTH AFTER 2 DAYS 06/01/21 10:30 Aerobic Blood Culture - Preliminary Blood - Venous NO GROWTH AFTER 2 DAYS Anaerobic Blood Culture - Preliminary NO GROWTH AFTER 2 DAYS Sepsis Event Note - Evaluation Sepsis Screening Result: No Definite Risk - Focused Exam Vital Signs: Vital Signs Temp Pulse Resp BP Pulse Ox 06/04/21 04:00 97.0 F 82 16 151/80 H 99 06/04/21 00:00 97.4 F 88 18 126/89 99 06/03/21 20:00 96.7 F L 84 18 137/86 100 - Problem List & Annotations (1) Hydropneumothorax SNOMED Code(s): 81338205 Code(s): J94.8 - OTHER SPECIFIED PLEURAL CONDITIONS Status: Acute Current Visit: Yes - Problem List Review Problem List Initiated/Reviewed/Updated: Yes - My Orders Last 24 Hours: My Active Orders 06/04/21 05:42 CBC WITH AUTO DIFF [HEME] DAILY 06/05/21 05:11 CBC WITH AUTO DIFF [HEME] DAILY COMPREHENSIVE METABOLIC PN,CMP [CHEM] DAILY 06/06/21 05:11 CBC WITH AUTO DIFF [HEME] DAILY COMPREHENSIVE METABOLIC PN,CMP [CHEM] DAILY 06/07/21 05:11 CBC WITH AUTO DIFF [HEME] DAILY COMPREHENSIVE METABOLIC PN,CMP [CHEM] DAILY 06/08/21 05:11 CBC WITH AUTO DIFF [HEME] DAILY COMPREHENSIVE METABOLIC PN,CMP [CHEM] DAILY 06/09/21 05:11 CBC WITH AUTO DIFF [HEME] DAILY COMPREHENSIVE METABOLIC PN,CMP [CHEM] DAILY - Plan Plan:: 56-year-old male with right-sided hydropneumothorax. -Surgery is following. Right-sided chest in place. Clean dry and intact. C hest x-ray this morning shows resolved pneumothorax. As per general surgery recommendations, Chest tube placed to waterseal. Chest tube put out only 100 cc of serous fluid in the last 24 hours. Follow-up CXR at 2 PM. Discontinue 100% oxygen. Morphine for pain. Continue the patient on 100% oxygen mask. No organisms seen on Gram stain. -Continue IV Azithromycin and Zosyn. Follow daily CBC. -Incentive spirometry. Duo nebs. -Continue home medications Losartan 25 mg daily.
--- NOTE | 2021-06-04 08:04 | PCM.CONSN ---
- General Info Date of Service: 06/04/21 Subjective Update: Patient feels like he can breathe even deeper today. Pain is well controlled. Patient is ambulating without difficulty. Denies shortness of breath. - Review of Systems General: Reports: No Symptoms HEENT: Reports: No Symptoms Pulmonary: Reports: No Symptoms Cardiovascular: Reports: No Symptoms Gastrointestinal: Reports: No Symptoms - Patient Data Vitals - Most Recent: Last Vital Signs Temp 36.1 C 06/04/21 04:00 Pulse 82 06/04/21 04:00 Resp 16 06/04/21 04:00 BP 151/80 H 06/04/21 04:00 Pulse Ox 99 06/04/21 04:00 Weight - Most Recent: 94.71 kg I&O - Last 24 Hours: Intake & Output 06/03/21 06/04/21 06/04/21 22:59 06:59 14:59 Intake Total 1000 1200 Output Total 800 750 Balance 200 450 Lab Results Last 24 Hours: Laboratory Results - last 24 hr 06/04/21 Range/Units 05:42 Sodium 138 (136-148) mmol/L Potassium 3.9 (3.5-5.1) mmol/L Chloride 103 (98-107) mmol/L Carbon Dioxide 30.2 (21.0-32.0) mmol/L BUN 12 (7.0-18.0) mg/dL Creatinine 1.0 (0.8-1.3) mg/dL Est Cr Clr Drug Dosing 85.17 mL/min Estimated GFR (MDRD) > 60.0 ml/min Glucose 90 (74-106) mg/dL Calcium 9.2 (8.5-10.1) mg/dL Total Bilirubin 0.5 (0.2-1.0) mg/dL AST 7 L (15-37) IU/L ALT 21 (14-63) IU/L Alkaline Phosphatase 52 (46-116) U/L Total Protein 7.1 (6.4-8.2) g/dL Albumin 2.5 L (3.4-5.0) g/dL Globulin 4.6 H (2.6-4.0) g/dL Albumin/Globulin Ratio 0.5 L (0.9-1.6) Lizandro Results Last 24 Hours: Microbiology 06/01/21 14:00 Gram Stain - Final Pleural Fluid 06/01/21 10:55 Aerobic Blood Culture - Preliminary Blood - Venous - Lab Draw NO GROWTH AFTER 2 DAYS Anaerobic Blood Culture - Preliminary NO GROWTH AFTER 2 DAYS 06/01/21 10:30 Aerobic Blood Culture - Preliminary Blood - Venous NO GROWTH AFTER 2 DAYS Anaerobic Blood Culture - Preliminary NO GROWTH AFTER 2 DAYS Med Orders - Current: Current Medications Acetaminophen (Acetaminophen 325 Mg Tab) 650 mg PO Q4H PRN PRN Reason: Pain (Mild 1-3)/fever Last Admin: 06/03/21 18:46 Dose: 650 mg Documented by: Albuterol/Ipratropium (Albuterol/Ipratropium 3.0-0.5 Mg/3 Ml Neb Soln) 3 ml NEB Q4HRRT PRN PRN Reason: Shortness Of Breath/wheezing Last Admin: 06/02/21 17:06 Dose: 3 ml Documented by: Piperacillin Sod/Tazobactam (Sod 3.375 gm/ Sodium Chloride) 50 mls @ 100 mls/hr IV Q6H [facility] Last Admin: 06/04/21 04:32 Dose: 100 mls/hr Documented by: Azithromycin 500 mg/ Sodium (Chloride) 250 mls @ 250 mls/hr IV Q24H [facility] Last Admin: 06/03/21 15:31 Dose: 250 mls/hr Documented by: Ibuprofen (Ibuprofen 200 Mg Tab) 200 mg PO Q6H PRN PRN Reason: Pain (mild 1-3) Losartan Potassium (Losartan 50 Mg Tab) 25 mg PO DAILY [facility] Last Admin: 06/03/21 10:29 Dose: 25 mg Documented by: Morphine Sulfate (Morphine 2 Mg/Ml Syringe) 2 mg IVPUSH Q4H PRN PRN Reason: Pain (severe 7-10) Last Admin: 06/03/21 17:55 Dose: 2 mg Documented by: Ondansetron HCl (Ondansetron 4 Mg/2 Ml Sdv) 4 mg IVPUSH Q4H PRN PRN Reason: Nausea Polyethylene Glycol (Polyethylene Glycol 3350 Powder 17 Gm Packet) 17 gm PO DAILY PRN PRN Reason: Constipation Discontinued Medications Hydromorphone HCl (Hydromorphone 1 Mg/Ml Syringe) 0.5 mg IVPUSH ONETIME ONE Stop: 06/01/21 13:56 Last Admin: 06/01/21 14:07 Dose: 0.5 mg Documented by: Piperacillin Sod/Tazobactam (Sod 3.375 gm/ Sodium Chloride) 50 mls @ 100 mls/hr IV ONETIME ONE Stop: 06/01/21 11:00 Last Admin: 06/01/21 11:00 Dose: 100 mls/hr Documented by: Iopamidol (Iopamidol 755 Mg/Ml 500 Ml Multipack Bottle) 75 ml IVPUSH ONETIME STA Stop: 06/01/21 11:38 Last Admin: 06/01/21 11:37 Dose: 75 ml Documented by: Lidocaine HCl (Lidocaine 1% 10 Ml Mdv) 20 ml INJECT ONETIME ONE Stop: 06/01/21 13:23 Last Admin: 06/01/21 14:05 Dose: Not Given Documented by: Lidocaine HCl (Lidocaine 1% 5 Ml Sdv) Confirm Administered Dose 20 ml .ROUTE .STK-MED ONE Stop: 06/01/21 13:27 Last Admin: 06/01/21 14:05 Dose: Not Given Documented by: Lidocaine HCl (Lidocaine 1% 10 Ml Mdv) 20 ml INJECT ONETIME ONE Stop: 06/01/21 14:02 Last Admin: 06/01/21 14:05 Dose: Not Given Documented by: Lidocaine HCl (Lidocaine 1% 5 Ml Sdv) 20 ml INJECT ONETIME ONE Stop: 06/01/21 14:04 Last Admin: 06/01/21 14:04 Dose: 15 ml Documented by: Morphine Sulfate (Morphine 2 Mg/Ml Syringe) 6 mg IVPUSH NOW STA Stop: 06/01/21 13:56 Last Admin: 06/01/21 14:05 Dose: Not Given Documented by: - Exam Quality Assessment: Supplemental Oxygen General: Alert, Oriented HEENT: Pupils Equal, Pupils Reactive Lungs: Clear to Auscultation, Decreased Breath Sounds (right lung base ) Cardiovascular: Regular Rate, Regular Rhythm Sepsis Event Note - Evaluation Sepsis Screening Result: No Definite Risk - Focused Exam Vital Signs: Vital Signs Temp Pulse Resp BP Pulse Ox 06/04/21 04:00 36.1 C 82 16 151/80 H 99 06/04/21 00:00 36.3 C 88 18 126/89 99 Consult PN Assessment/Plan Procedures: Procedures ASSAY OF FOLIC ACID SERUM (03/12/21) ASSAY OF LACTIC ACID (03/12/21) ASSAY OF LIPASE (03/12/21) ASSAY OF MAGNESIUM (03/12/21) ASSAY OF PHOSPHORUS (03/12/21) ASSAY OF TROPONIN QUANT (03/12/21) ASSAY THYROID STIM HORMONE (03/12/21) BLOOD TYPING SEROLOGIC ABO (03/12/21) BLOOD TYPING SEROLOGIC RH(D) (03/12/21) COMPLETE CBC AUTOMATED (03/12/21) COMPLETE CBC W/AUTO DIFF WBC (03/30/21) COMPREHEN METABOLIC PANEL (03/30/21) CRITICAL CARE FIRST HOUR (03/12/21) DRUG TEST PRSMV CHEM ANLYZR (03/12/21) DRUG TEST PRSMV DIR OPT OBS (03/12/21) ELECTROCARDIOGRAM TRACING (03/30/21) EMERGENCY DEPT VISIT (03/31/21) GLYCOSYLATED HEMOGLOBIN TEST (03/12/21) HEMATOCRIT (03/12/21) HEMOGLOBIN (03/12/21) HYDRATE IV INFUSION ADD-ON (03/12/21) LIPID PANEL (03/12/21) PROTHROMBIN TIME (03/30/21) RBC ANTIBODY SCREEN (03/12/21) ROUTINE VENIPUNCTURE (03/30/21) SARS-COV-2 COVID-19 AMP PRB (03/31/21) THER/PROPH/DIAG INJ IV PUSH (03/12/21) THROMBOPLASTIN TIME PARTIAL (03/12/21) TX/PRO/DX INJ NEW DRUG ADDON (03/12/21) TX/PRO/DX INJ SAME DRUG [employer]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 Pneumothorax appears resolved on CXR and chest tube has put out only 100cc of serous fluid in 24 hours. No evidence of an air leak. -Repeat CXR ordered for 1400. If clear and no reaccumulation will pull chest tube. Would still keep one more night after that. -Ok to stop 100% oxygen. RA ok.
[2021-06-04] MEDS: Losartan 50 MG Tab PO SCH (08:09)
--- NOTE | 2021-06-04 14:35 | CR ---
Indication: Chest tube on water seal. Technique: Chest 1 view. Comparison: June 04, 2021 at 0608 hours. Findings/Impression: Cardiovascular and mediastinum: Heart size and vasculature are normal in caliber and appearance. Lungs and pleural space: Right-side chest tube unchanged in position. Stable right lung volume loss and pleural effusion. No pneumothorax. Left lung and pleural space remain clear. Overall no change from the earlier exam. Bones and soft tissues: No acute findings. Dictated by Rufino Stevens MD @ 06/04/2021 2:33:59 PM (Electronically Signed)
[2021-06-04] MEDS ORDERED: Iopamidol 755 MG/ML 500 ML Multipack Bottle IVPUSH STA (16:52)
[2021-06-04] MEDS: Azithromycin 500 MG in Sodium Chloride 0.9% 250 ML IV SCH (17:02)
--- NOTE | 2021-06-04 17:35 | CT ---
INDICATION: Follow up hydro pneumothorax. Chest tube in place for 3 days. Currently on water seal. Lung not fully inflated yet. COMPARISON: Chest radiograph 06/04/2021. CT chest 06/01/2021. TECHNIQUE: CT of the chest with 75 cc of Isovue 370 IV contrast. Coronal and sagittal reconstructions. FINDINGS: Normal heart size. Normal caliber thoracic aorta and central pulmonary arteries. Mild coronary artery calcifications. No large central pulmonary embolism. No pericardial effusion. Stable mildly prominent subcarinal lymph nodes. Interval placement of a right apical chest tube. There is a small to moderate residual right hydropneumothorax which has decreased in size since prior exam. The largest pocket of air is in the right apex, with multiple smaller pockets throughout the fluid. The fluid appears partially loculated, and there is mild pleural thickening throughout the right hemithorax. No obvious mass. Scattered atelectasis throughout the right lung, with a more focal consolidation in the posterior right upper lobe. Stable hazy peripheral ground-glass opacities throughout the left lung which may be infectious/inflammatory versus fibrosis. No pulmonary nodules identified. No central endobronchial lesion. The thyroid gland is normal in appearance. Small amount of subcutaneous emphysema in the right lateral chest wall. The visualized upper abdomen is unremarkable. Mild degenerative changes of the spine. IMPRESSION: 1. Interval placement of a right apical chest tube. There is a small to moderate right hydropneumothorax which has decreased in size since prior exam. 2. Scattered atelectasis throughout the right lung. A more focal consolidation in the posterior right upper lobe may represent atelectasis or infiltrate. 3. Stable hazy peripheral ground-glass opacities throughout the left lung which may be infectious/inflammatory versus fibrosis. Please note that all CT scans at this facility use dose modulation, iterative reconstruction, and/or weight-based dosing when appropriate to reduce radiation dose to as low as reasonably achievable. Dictated by Carolina Tavarez MD @ 06/04/2021 5:33:36 PM (Electronically Signed)
--- NOTE | 2021-06-04 17:44 | PCM.SN.2 ---
- Free Text/Narrative Note: Patient is a 56 year old male who presented to the ER 3 days ago with a hydropneumothorax. A chest tube was placed. Over his hospitalization his chest tube output has decreased and his lung has slowly re-inflated. This morning he was put on water seal and a repeat CXR was taken 6 hours later. This showed no pneumothorax and incomplete expansion of the lung. Because of this I performed a CT scan of the chest. This showed loculated fluid around the right lung. His chest tube fluid cultures came back as Enterobacter. This is concerning for an empyema. I called the cardiothoracic surgeon at [facility] in [place]. He agreed and stated that the patient would need a decortication. I talked to the hospitalist who accepted the patient for transfer.
--- NOTE | 2021-06-04 18:06 | PCM.DCSUM1 ---
<Kush Prakash - Last Filed: 06/04/21 18:08> Discharge Summary - Hospital Course Free Text/Narrative:: 56-year-old male who was diagnosed with Covid in March was sent to the ER on 06/01/2021 from the walk-in clinic after presenting with shortness of breath and chest discomfort. Patient had continued shortness of breath since his Covid diagnosis. Chest CT showed hydro-pneumothorax with possibly loculated fluid in the base of the lung. General surgery was consulted in the ER and a right-sided chest tube was placed. 600 mL of cloudy fluid drained. Cultures grew Enterobacter cloacae. Pleural fluid analysis was consistent with exudative. Right-sided chest tube remain in place and patient's pneumothorax improved over the next 48 hours seen on a.m. CXRs. Patient was treated with IV Zosyn and azithromycin. Patient's white count was 11.4 on admission and dropped down to 8 on day of transfer. Patient was placed on 100% oxygen mask for 24 hours. Patient's clinical status improved. Patient perform incentive spirometry daily. Patient stated he felt much better and breathing was easier day by day. CT chest done today shows empyema. General surgery contacted cardiothoracic surgery at [place] who advised patient may need a procedure. [facility] accepted patient for transfer. Vital signs stable. Patient was recently diagnosed with hypertension and placed on losartan 25 mg. Patient does not have any other past medical history. Patient has never had surgery. Patient quit smoking 30 years ago. Patient was a weekly alcohol user until 4 months ago when he quit. No illicit drug use. Patient denies fever, palpitations, myalgias, headaches, lightheadedness, dizziness or difficulty breathing. Patient denies abdominal pain, nausea, vomiting or diarrhea. - Discharge Data Discharge Date: 06/04/21 ([facility]) Discharge Disposition: DC/Tfer to Acute Hospital 02 Condition: Good - Referral to Home Health Primary Care Physician: Alon Kaplan MD - Discharge Diagnosis/Problem(s) (1) Hydropneumothorax SNOMED Code(s): 85265048 ICD Code: J94.8 - OTHER SPECIFIED PLEURAL CONDITIONS Status: Acute - Patient Summary/Data Consults: Consultations 06/01/21 15:37 Consult to Physician [CONS] Routine - Patient Instructions Diet: Heart Healthy Diet Other/Special Instructions: General surgery has consulted cardiothoracic surgery in [place] who has accepted the patient as a CT chest showed empyema. Patient is being transferred to [facility] under cardiothoracic service. ROBERTA Hernandez: Patient admitted on 06/01/2021 for hydropneumothorax. Chest tube placed and vacuum in place since. Patient was on IV Zosyn and azithromycin. Pneumothorax improved. CT chest today shows empyema. Patient transferred. - Discharge Plan *PRESCRIPTION DRUG MONITORING PROGRAM REVIEWED*: Not Applicable *COPY OF PRESCRIPTION DRUG MONITORING REPORT IN PATIENT RACHELL: Not Applicable Home Medications: Home Meds Losartan [Cozaar] 1 tab PO DAILY 06/01/21 [History] Oxygen Therapy Mode: Nasal Cannula Patient Handouts: Pneumothorax Referrals: Alon Kaplan MD [Primary Care Provider] - 06/11/21 10:00 am - Discharge Summary/Plan Comment DC Time >30 min.: Yes Total # of Minutes for Discharge Time: 60min - General Info Admission Dx/Problem (Free Text: Hydropneumothorax. Functional Status: Reports: Pain Controlled - Review of Systems General: Denies: Fever Pulmonary: Denies: Shortness of Breath, Pleuritic Chest Pain, Cough, Sputum, Hemoptysis, Wheezing Cardiovascular: Reports: Chest Pain. Denies: Palpitations Gastrointestinal: Denies: Abdominal Pain, Constipation, Diarrhea, Nausea, Vomiting Genitourinary: Denies: Dysuria Musculoskeletal: Denies: Leg Pain Neurological: Denies: Confusion, Dizziness, Headache, Numbness, Paresthesia, Pre-Existing Deficit - Patient Data Vitals - Most Recent: Last Vital Signs Temp 98.2 F 06/04/21 16:00 Pulse 84 06/04/21 16:00 Resp 18 06/04/21 16:00 BP 129/78 06/04/21 16:00 Pulse Ox 91 L 06/04/21 16:00 Weight - Most Recent: 94.71 kg I&O - Last 24 hours: Intake & Output 06/04/21 06/04/21 06/04/21 06:59 14:59 22:59 Intake Total 1200 Output Total 750 Balance 450 Lab Results - Last 24 hrs: Laboratory Results - last 24 hr 06/04/21 06/04/21 Range/Units 05:42 05:42 WBC 8.04 (4.0-11.0) K/uL RBC 4.87 (4.50-5.90) M/uL Hgb 12.4 L (13.0-17.0) g/dL Hct 40.1 (38.0-50.0) % MCV 82.3 (80.0-98.0) fL MCH 25.5 L (27.0-32.0) pg MCHC 30.9 L (31.0-37.0) g/dL RDW Std Deviation 50.8 (28.0-62.0) fl RDW Coeff of James 17 H (11.0-15.0) % Plt Count 263 (150-400) K/uL MPV 11.50 (7.40-12.00) fL Add Manual Diff YES Neutrophils % (Manual) 62 (48.0-80.0) % Band Neutrophils % 9 % Lymphocytes % (Manual) 18 (16.0-40.0) % Monocytes % (Manual) 7 (0.0-15.0) % Eosinophils % (Manual) 1 (0.0-7.0) % Metamyelocytes % 1 % Myelocytes % 2 % Nucleated RBC % 0.0 /100WBC Absolute Seg Neuts 5.0 (1.4-5.7) Band Neutrophils # 0.7 Lymphocytes # (Manual) 1.4 (0.6-2.4) Monocytes # (Manual) 0.6 (0.0-0.8) Eosinophils # (Manual) 0.1 (0.0-0.7) Absolute Metamyelocyte 0.1 Absolute Myelocytes 0.2 Nucleated RBCs # 0 K/uL Sodium 138 (136-148) mmol/L Potassium 3.9 (3.5-5.1) mmol/L Chloride 103 (98-107) mmol/L Carbon Dioxide 30.2 (21.0-32.0) mmol/L BUN 12 (7.0-18.0) mg/dL Creatinine 1.0 (0.8-1.3) mg/dL Est Cr Clr Drug Dosing 85.17 mL/min Estimated GFR (MDRD) > 60.0 ml/min Glucose 90 (74-106) mg/dL Calcium 9.2 (8.5-10.1) mg/dL Total Bilirubin 0.5 (0.2-1.0) mg/dL AST 7 L (15-37) IU/L ALT 21 (14-63) IU/L Alkaline Phosphatase 52 (46-116) U/L Total Protein 7.1 (6.4-8.2) g/dL Albumin 2.5 L (3.4-5.0) g/dL Globulin 4.6 H (2.6-4.0) g/dL Albumin/Globulin Ratio 0.5 L (0.9-1.6) SOFÍA Results - Last 24 hrs: Microbiology 06/01/21 10:55 Aerobic Blood Culture - Preliminary Blood - Venous - Lab Draw NO GROWTH AFTER 3 DAYS Anaerobic Blood Culture - Preliminary NO GROWTH AFTER 3 DAYS 06/01/21 10:30 Aerobic Blood Culture - Preliminary Blood - Venous NO GROWTH AFTER 3 DAYS Anaerobic Blood Culture - Preliminary NO GROWTH AFTER 3 DAYS 06/01/21 14:00 Aerobic Culture - Preliminary Pleural Fluid Enterobacter Cloacae Complex Gram Stain - Final Med Orders - Current: Current Medications Acetaminophen (Acetaminophen 325 Mg Tab) 650 mg PO Q4H PRN PRN Reason: Pain (Mild 1-3)/fever Last Admin: 06/03/21 18:46 Dose: 650 mg Documented by: Albuterol/Ipratropium (Albuterol/Ipratropium 3.0-0.5 Mg/3 Ml Neb Soln) 3 ml NEB Q4HRRT PRN PRN Reason: Shortness Of Breath/wheezing Last Admin: 06/02/21 17:06 Dose: 3 ml Documented by: Piperacillin Sod/Tazobactam (Sod 3.375 gm/ Sodium Chloride) 50 mls @ 100 mls/hr IV Q6H [facility] Last Admin: 06/04/21 18:03 Dose: 100 mls/hr Documented by: Azithromycin 500 mg/ Sodium (Chloride) 250 mls @ 250 mls/hr IV Q24H [facility] Last Admin: 06/04/21 17:02 Dose: 250 mls/hr Documented by: Ibuprofen (Ibuprofen 200 Mg Tab) 200 mg PO Q6H PRN PRN Reason: Pain (mild 1-3) Losartan Potassium (Losartan 50 Mg Tab) 25 mg PO DAILY [facility] Last Admin: 06/04/21 08:09 Dose: 25 mg Documented by: Morphine Sulfate (Morphine 2 Mg/Ml Syringe) 2 mg IVPUSH Q4H PRN PRN Reason: Pain (severe 7-10) Last Admin: 06/03/21 17:55 Dose: 2 mg Documented by: Ondansetron HCl (Ondansetron 4 Mg/2 Ml Sdv) 4 mg IVPUSH Q4H PRN PRN Reason: Nausea Polyethylene Glycol (Polyethylene Glycol 3350 Powder 17 Gm Packet) 17 gm PO DAILY PRN PRN Reason: Constipation Discontinued Medications Hydromorphone HCl (Hydromorphone 1 Mg/Ml Syringe) 0.5 mg IVPUSH ONETIME ONE Stop: 06/01/21 13:56 Last Admin: 06/01/21 14:07 Dose: 0.5 mg Documented by: Piperacillin Sod/Tazobactam (Sod 3.375 gm/ Sodium Chloride) 50 mls @ 100 mls/hr IV ONETIME ONE Stop: 06/01/21 11:00 Last Admin: 06/01/21 11:00 Dose: 100 mls/hr Documented by: Iopamidol (Iopamidol 755 Mg/Ml 500 Ml Multipack Bottle) 75 ml IVPUSH ONETIME STA Stop: 06/01/21 11:38 Last Admin: 06/01/21 11:37 Dose: 75 ml Documented by: Iopamidol (Iopamidol 755 Mg/Ml 500 Ml Multipack Bottle) 75 ml IVPUSH ONETIME STA Stop: 06/04/21 16:53 Last Admin: 06/04/21 16:52 Dose: 75 ml Documented by: Lidocaine HCl (Lidocaine 1% 10 Ml Mdv) 20 ml INJECT ONETIME ONE Stop: 06/01/21 13:23 Last Admin: 06/01/21 14:05 Dose: Not Given Documented by: Lidocaine HCl (Lidocaine 1% 5 Ml Sdv) Confirm Administered Dose 20 ml .ROUTE .STK-MED ONE Stop: 06/01/21 13:27 Last Admin: 06/01/21 14:05 Dose: Not Given Documented by: Lidocaine HCl (Lidocaine 1% 10 Ml Mdv) 20 ml INJECT ONETIME ONE Stop: 06/01/21 14:02 Last Admin: 06/01/21 14:05 Dose: Not Given Documented by: Lidocaine HCl (Lidocaine 1% 5 Ml Sdv) 20 ml INJECT ONETIME ONE Stop: 06/01/21 14:04 Last Admin: 06/01/21 14:04 Dose: 15 ml Documented by: Morphine Sulfate (Morphine 2 Mg/Ml Syringe) 6 mg IVPUSH NOW STA Stop: 06/01/21 13:56 Last Admin: 06/01/21 14:05 Dose: Not Given Documented by: - Exam General: Reports: Alert, Oriented, Cooperative, No Acute Distress HEENT: Reports: Pupils Equal, Pupils Reactive Neck: Reports: Supple Lungs: Reports: Other (Right lung: Decreased breath sounds, completely diminished at the bases. Left lung clear to auscultation.) Cardiovascular: Reports: Regular Rate, Regular Rhythm, No Murmurs GI/Abdominal Exam: Normal Bowel Sounds, Soft, Non-Tender Back Exam: Reports: Normal Inspection, Full Range of Motion. Denies: CVA Tenderness (L), CVA Tenderness (R) Extremities: Normal Inspection, Normal Range of Motion, Non-Tender, No Pedal Edema. No: Hakeem's Sign, Leg Pain Skin: Reports: Warm, Dry, Intact. Denies: Rash Wound/Incisions: Reports: Dressing Dry and Intact, No Drainage Neurological: Reports: No New Focal Deficit, Normal Gait, Normal Speech, Normal Tone, Strength Equal Bilateral, Reflexes Equal Bilateral, Sensation Intact, Cranial Nerves Intact Psy/Mental Status: Reports: Alert, Normal Affect, Normal Mood <Ja Mcmillan J - Last Filed: 06/07/21 14:29> Discharge Summary - Referral to Home Health Primary Care Physician: Alon Kaplan MD - Patient Summary/Data Consults: Consultations 06/01/21 15:37 Consult to Physician [CONS] Routine - Patient Data Vitals - Most Recent: Last Vital Signs Temp 36.8 C 06/04/21 16:00 Pulse 84 06/04/21 16:00 Resp 18 06/04/21 16:00 BP 129/78 06/04/21 16:00 Pulse Ox 91 L 06/04/21 16:00 SOFÍA Results - Last 24 hrs: Microbiology 06/01/21 10:55 Aerobic Blood Culture - Final Blood - Venous - Lab Draw NO GROWTH AFTER 5 DAYS Anaerobic Blood Culture - Final NO GROWTH AFTER 5 DAYS 06/01/21 14:00 Aerobic Culture - Preliminary Pleural Fluid Enterobacter Cloacae Complex Gram Stain - Final Anaerobic Culture - Preliminary 06/01/21 10:30 Aerobic Blood Culture - Final Blood - Venous NO GROWTH AFTER 5 DAYS Anaerobic Blood Culture - Final NO GROWTH AFTER 5 DAYS Med Orders - Current: Current Medications Discontinued Medications Acetaminophen (Acetaminophen 325 Mg Tab) 650 mg PO Q4H PRN PRN Reason: Pain (Mild 1-3)/fever Last Admin: 06/03/21 18:46 Dose: 650 mg Documented by: Albuterol/Ipratropium (Albuterol/Ipratropium 3.0-0.5 Mg/3 Ml Neb Soln) 3 ml NEB Q4HRRT PRN PRN Reason: Shortness Of Breath/wheezing Last Admin: 06/02/21 17:06 Dose: 3 ml Documented by: Hydromorphone HCl (Hydromorphone 1 Mg/Ml Syringe) 0.5 mg IVPUSH ONETIME ONE Stop: 06/01/21 13:56 Last Admin: 06/01/21 14:07 Dose: 0.5 mg Documented by: Piperacillin Sod/Tazobactam (Sod 3.375 gm/ Sodium Chloride) 50 mls @ 100 mls/hr IV ONETIME ONE Stop: 06/01/21 11:00 Last Admin: 06/01/21 11:00 Dose: 100 mls/hr Documented by: Piperacillin Sod/Tazobactam (Sod 3.375 gm/ Sodium Chloride) 50 mls @ 100 mls/hr IV Q6H [facility] Last Admin: 06/04/21 18:03 Dose: 100 mls/hr Documented by: Azithromycin 500 mg/ Sodium (Chloride) 250 mls @ 250 mls/hr IV Q24H [facility] Last Admin: 06/04/21 17:02 Dose: 250 mls/hr Documented by: Ibuprofen (Ibuprofen 200 Mg Tab) 200 mg PO Q6H PRN PRN Reason: Pain (mild 1-3) Iopamidol (Iopamidol 755 Mg/Ml 500 Ml Multipack Bottle) 75 ml IVPUSH ONETIME STA Stop: 06/01/21 11:38 Last Admin: 06/01/21 11:37 Dose: 75 ml Documented by: Iopamidol (Iopamidol 755 Mg/Ml 500 Ml Multipack Bottle) 75 ml IVPUSH ONETIME STA Stop: 06/04/21 16:53 Last Admin: 06/04/21 16:52 Dose: 75 ml Documented by: Lidocaine HCl (Lidocaine 1% 10 Ml Mdv) 20 ml INJECT ONETIME ONE Stop: 06/01/21 13:23 Last Admin: 06/01/21 14:05 Dose: Not Given Documented by: Lidocaine HCl (Lidocaine 1% 5 Ml Sdv) Confirm Administered Dose 20 ml .ROUTE .STK-MED ONE Stop: 06/01/21 13:27 Last Admin: 06/01/21 14:05 Dose: Not Given Documented by: Lidocaine HCl (Lidocaine 1% 10 Ml Mdv) 20 ml INJECT ONETIME ONE Stop: 06/01/21 14:02 Last Admin: 06/01/21 14:05 Dose: Not Given Documented by: Lidocaine HCl (Lidocaine 1% 5 Ml Sdv) 20 ml INJECT ONETIME ONE Stop: 06/01/21 14:04 Last Admin: 06/01/21 14:04 Dose: 15 ml Documented by: Losartan Potassium (Losartan 50 Mg Tab) 25 mg PO DAILY [facility] Last Admin: 06/04/21 08:09 Dose: 25 mg Documented by: Morphine Sulfate (Morphine 2 Mg/Ml Syringe) 6 mg IVPUSH NOW STA Stop: 06/01/21 13:56 Last Admin: 06/01/21 14:05 Dose: Not Given Documented by: Morphine Sulfate (Morphine 2 Mg/Ml Syringe) 2 mg IVPUSH Q4H PRN PRN Reason: Pain (severe 7-10) Last Admin: 06/03/21 17:55 Dose: 2 mg Documented by: Ondansetron HCl (Ondansetron 4 Mg/2 Ml Sdv) 4 mg IVPUSH Q4H PRN PRN Reason: Nausea Polyethylene Glycol (Polyethylene Glycol 3350 Powder 17 Gm Packet) 17 gm PO DAILY PRN PRN Reason: Constipation - Free Text/Narrative Note: I have seen and examined the patient. I have discussed findings and treatment plan with the resident. I agree with the assessment and plan as outlined in the following note.
== END 2021-06-04 19:10 | DRG 186 ==
LOC: MW.ED 10:11 → MW.MS 16:02
PROVIDERS: ADMIT Internal Medicine; ATTEND Internal Medicine
PROC: 0W9930Z Drainage of Right Pleural Cavity with Drainage Device, Percutaneous Approach (ICD-10-PCS; principal; 2021-06-01)
DX: J94.8 Other specified pleural conditions (principal); J86.9 Pyothorax without fistula; U07.1 COVID-19; B96.89 Other specified bacterial agents as the cause of diseases classified elsewhere; I10 Essential (primary) hypertension; Z87.891 Personal history of nicotine dependence; Z79.899 Other long term (current) drug therapy
CPT/HCPCS: 36415; 71045; 71045-26; 71260; 71260-26; 80053; 82150; 82945; 83605; 83615; 83986; 84157; 84478; 84484; 85025; 85730; 87040; 87070; 87075; 87077; 87186; 87205; 89050; 93005; 96365; 96375; 99285-25; A9270-GY; J0456; J1170; J2270; J2543; J7050; J7620-GY; Q9967; U0002